=== PATIENT | female | born 1955 | race African-American/Black ===

== ENCOUNTER 2018-05-12 13:13 | Observation (INO) | payer MEDICARE, MEDICAID ==
[~2018-05-12] VITALS: Ht 172.7 cm; Wt 99.1 kg
[~2018-05-12 13:13] MED LIST: ABILIFY10 MG OR; ADVAIR DISK1 IN; ADVAIR HF1 IN; LORTAB 5 OR; NORVASC10 MG OR; ORAJEL MT; OXYCODONE30 MG OR; PAXIL CR25 MG OR; PENICILLN VK500 MG OR; PROVENTIL INH17 GM IN; PROZAC40 MG OR; SINGULAIR10 MG OR; VALIUM10 MG OR; VENTOLIN HFA IN; ZESTRIL20 MG OR
[2018-05-12 14:48] LABS: HEMATOCRIT 39.8 % (37.0-47.0); IMMATURE GRANULOCYTES 1.1 % (0.0-1.0); MEAN CELL VOLUME 77.3 fL CALC (80.0-100.0); MEAN CORPUSCULAR HGB 23.3 pG CALC (26.0-32.0); MEAN CORPUSCULAR HGB CONC 30.2 g/L CALC (32.0-36.0); NEUT# 9.82 thou/uL (2.00-7.15); RED BLOOD COUNT 5.15 mill/uL (4.20-5.60); RED CELL DISTRI WIDTH 20.1 % (11.5-15.5)
[2018-05-12 15:15] LABS: D-DIMER 0.71 mg/L (0.19-0.60); INTERNATIONAL NORMALIZED RATIO 0.9 RATIO (0.7-1.3)
[2018-05-12 15:17] LABS: ALBUMIN 4.4 g/dL (3.2-5.0); ALKALINE PHOSPHATASE 101 u/l (38-126); ANION GAP 12 (6-22 (CALC)); BILIRUBIN, TOTAL 0.4 mg/dL (0.0-1.4); BUN 14 mg/dL (8-23); BUN/CREATININE RATIO 23 (12-20 (CALC)); CARBON DIOXIDE 27 mmol/l (22-30); CHLORIDE 106 mmol/l (95-108); CREATININE 0.6 mg/dL (0.5-1.0); GFR > 60 ML/MIN (>=60 (CALC)); GFR FOR AFR.AMER. > 60 ML/MIN (>=60 (CALC)); SGOT/AST 19 u/l (9-36); SGPT/ALT 38 u/l (11-66); SODIUM 140 mmol/l (137-146); TOTAL PROTEIN 7.9 g/dL (6.3-8.2)
[2018-05-12] MEDS ORDERED: METOPROL TAR25 MG PO (15:54)
[2018-05-12] MEDS ORDERED: KLONOPIN1 MG PO (15:55)
[2018-05-12 16:56] LABS: CHOLESTEROL HDL RATIO 3.9 (<4.4 (CALC))
[2018-05-12 17:04] VITALS: BP 164/91
[2018-05-12 19:05] VITALS: BP 131/77
[2018-05-12 23:46] VITALS: BP 130/85
[2018-05-13] VITALS (7 sets, daily range): BP systolic 111–200; BP diastolic 73–106
[2018-05-13 08:02] LABS: HEMATOCRIT 37.7 % (37.0-47.0); HEMOGLOBIN 11.5 g/dl (12.0-16.0); IMMATURE GRANULOCYTES 1.4 % (0.0-1.0); MEAN CELL VOLUME 77.1 fL CALC (80.0-100.0); MEAN CORPUSCULAR HGB 23.5 pG CALC (26.0-32.0); MEAN CORPUSCULAR HGB CONC 30.5 g/L CALC (32.0-36.0); NEUT# 16.04 thou/uL (2.00-7.15); RED BLOOD COUNT 4.89 mill/uL (4.20-5.60); RED CELL DISTRI WIDTH 19.9 % (11.5-15.5)
[2018-05-13 08:25] LABS: ANION GAP 10 (6-22 (CALC)); BUN 17 mg/dL (8-23); BUN/CREATININE RATIO 29 (12-20 (CALC)); CARBON DIOXIDE 28 mmol/l (22-30); CHLORIDE 103 mmol/l (95-108); CREATININE 0.6 mg/dL (0.5-1.0); GFR > 60 ML/MIN (>=60 (CALC)); GFR FOR AFR.AMER. > 60 ML/MIN (>=60 (CALC)); MAGNESIUM 2.3 mg/dL (1.6-2.3); POTASSIUM 4.3 mmol/l (3.5-5.1); SODIUM 137 mmol/l (137-146)
[2018-05-13] MEDS ORDERED: DOXYCYCL HYC100 MG PO (12:56)
[2018-05-13] MEDS ORDERED: PREDNISONE10 MG PO (12:56)
[2018-05-14 04:20] VITALS: BP 153/92
[2018-05-14 05:41] LABS: HEMATOCRIT 37.8 % (37.0-47.0); HEMOGLOBIN 11.5 g/dl (12.0-16.0); IMMATURE GRANULOCYTES 2.5 % (0.0-1.0); MEAN CELL VOLUME 78.3 fL CALC (80.0-100.0); MEAN CORPUSCULAR HGB 23.8 pG CALC (26.0-32.0); MEAN CORPUSCULAR HGB CONC 30.4 g/L CALC (32.0-36.0); NEUT# 20.46 thou/uL (2.00-7.15); RED BLOOD COUNT 4.83 mill/uL (4.20-5.60); RED CELL DISTRI WIDTH 19.9 % (11.5-15.5)
[2018-05-14 06:02] LABS: ANION GAP 8 (6-22 (CALC)); BUN 25 mg/dL (8-23); BUN/CREATININE RATIO 33 (12-20 (CALC)); CARBON DIOXIDE 30 mmol/l (22-30); CHLORIDE 103 mmol/l (95-108); CREATININE 0.8 mg/dL (0.5-1.0); GFR > 60 ML/MIN (>=60 (CALC)); GFR FOR AFR.AMER. > 60 ML/MIN (>=60 (CALC)); POTASSIUM 4.7 mmol/l (3.5-5.1); SODIUM 136 mmol/l (137-146)
[2018-05-14 07:53] VITALS: BP 148/73
[2018-05-14 11:11] VITALS: BP 146/75
[2018-05-14] MEDS ORDERED: OXYCODONE15 MG PO (12:55)
[2018-05-14] MEDS ORDERED: MORPHINE SUL30 M3 PO (12:56)
[2018-05-14] MEDS ORDERED: CLONAZEPAM0.5 M1 PO (12:57)
[2018-05-14 15:40] VITALS: BP 147/78
[2018-05-15] MEDS ORDERED: PLAVIX75 MG PO (18:33)
[2018-05-15] MEDS ORDERED: FLUOXETINE10 M2 PO (18:34)
== END 2018-05-14 17:46 | disposition home or self-care (01) ==
LOC: ED 13:13 → ED-I 15:41 → ED 15:54 → MS2 15:55
PROVIDERS: Emergency Medicine; Nurse Practitioner; Nurse Practitioner Family; ADMIT Internal Medicine; ATTEND Internal Medicine
DX: J44.1 Chronic obstructive pulmonary disease with (acute) exacerbation (principal); I10 Essential (primary) hypertension; I25.10 Atherosclerotic heart disease of native coronary artery without angina pectoris; F17.210 Nicotine dependence, cigarettes, uncomplicated; F32.9 Major depressive disorder, single episode, unspecified; G89.4 Chronic pain syndrome; Z95.5 Presence of coronary angioplasty implant and graft; R07.89 Other chest pain; R06.02 Shortness of breath
CPT/HCPCS: J3475

== ENCOUNTER 2018-05-15 13:46 | Inpatient (IN) | payer MEDICARE, MEDICAID ==
[~2018-05-15] VITALS: Ht 172.7 cm; Wt 103.6 kg
[~2018-05-15 13:46] MED LIST changes: +CLONAZEPAM0.5 M1 PO; +DOXYCYCL HYC100 MG PO; +KLONOPIN1 MG PO; +METOPROL TAR25 MG PO; +MORPHINE SUL30 M3 PO; +OXYCODONE15 MG PO; +PREDNISONE10 MG PO
--- NOTE | 2018-05-15 13:48 | NUR ---
TO ROOM 9 VIA W/C. ALERT. ANSWERS QUESTIONS IN 1-2 WORDS. COOPERATIVE. BRACELETS IN PLACE FROM PREVIOUS ADMISSION
--- NOTE | 2018-05-15 14:17 | NUR ---
PORT ACCESS IN UPPER RIGHT CHEST BY STERILE PROCEDURE. BLOOD DRAW + 1 SET OF CULTURES & LA FOR PORT SITE.
[2018-05-15 14:31] LABS: HEMATOCRIT 38.9 % (37.0-47.0); HEMOGLOBIN 11.6 g/dl (12.0-16.0); IMMATURE GRANULOCYTES 2.7 % (0.0-1.0); MEAN CELL VOLUME 78.3 fL CALC (80.0-100.0); MEAN CORPUSCULAR HGB 23.3 pG CALC (26.0-32.0); MEAN CORPUSCULAR HGB CONC 29.8 g/L CALC (32.0-36.0); NEUT# 17.46 thou/uL (2.00-7.15); RED BLOOD COUNT 4.97 mill/uL (4.20-5.60); RED CELL DISTRI WIDTH 19.9 % (11.5-15.5)
--- NOTE | 2018-05-15 14:35 | NUR ---
PATIENT RESTING ON STRETCHER, WHEEZING NOTED TO BILATERAL LUNGS. REPORTS MIDSTERNAL CHEST PAIN NON RADIATING, RATES 8/10. MD INFORMED.
[2018-05-15 14:50] LABS: ANION GAP 11 (6-22 (CALC)); BUN 23 mg/dL (8-23); BUN/CREATININE RATIO 29 (12-20 (CALC)); CARBON DIOXIDE 31 mmol/l (22-30); CHLORIDE 102 mmol/l (95-108); CREATININE 0.8 mg/dL (0.5-1.0); GFR > 60 ML/MIN (>=60 (CALC)); GFR FOR AFR.AMER. > 60 ML/MIN (>=60 (CALC)); PROTHROMBIN TIME 10.7 SECONDS (9.0-12.5); SODIUM 140 mmol/l (137-146)
[2018-05-15 14:51] LABS: POTASSIUM 3.5 mmol/l (3.5-5.1)
--- NOTE | 2018-05-15 15:08 | NUR ---
PATIENT MEDICATED WITH 0.4 MH SL NITRO. PATIENT REPORTS NO RELIEF FROM CHEST PAIN. REPORTS TAKING X2 SL NITRO AT HOME. INFORMED.
--- NOTE | 2018-05-15 15:40 | NUR ---
PATIENT PRODUCES ID CARD FOR SMART PORT (SMART PORT POWER-INJECTABLE PORTS) BY [employer]. PORT PLACED TO RIGHT SUBCLAVIAN BY AT [facility]. INFORMATION ON CARD.
--- NOTE | 2018-05-15 15:45 | NUR ---
PATIENT MARKER MAKER LIGHT REQUESTING SOMETHING FOR CHEST PAIN 07/08. MF INFORMED.
--- NOTE | 2018-05-15 16:15 | NUR ---
PATIENT RESTING ON STRETCHER NO SIGNS OF DISTRESS NOTED. PATIENT MEDICATED WITH 4 MG OF MORPHINE IVP AND 4 MG OF IVP ZOFRAN. TOLERATED WELL. NITRO DRIP STARTED AT THIS TIME FOR CONTINUED CHEST PAIN. PATIENT INFORMED OF NITRO EFFECTS AND SIDE EFFECTS, VERBAL UNDERSTANDING FROM PATIENT. WILL CONTINUE TO MONITOR. CT SCAN ON HOLD AT THIS TIME TO MONITOR CHANGES IN B/P.
--- NOTE | 2018-05-15 16:34 | NUR ---
NITRO DRIP INCREASED TO 10MCG/MIN FOR CHEST PAIN 06/07.
--- NOTE | 2018-05-15 16:55 | NUR ---
PATIENT TRANSPORT TO CT SCAN ON PAIN MANAGEMENT NURSE PRACTITIONER. NURSE ACCOMPANIED PATIENT TO RADIOLOGY DEPARTMENT.
--- NOTE | 2018-05-15 17:20 | NUR ---
PATIENT REPORTS CHEST PAIN 4/10 AT THIS TIME, NITRO CONTINUES AT 10MCG/MIN. UP TO BSC WITH STANDBY ASSIST, NO SOB NOTED. 400 ML OF CLEAR YELLOW URINE OUT. CALL LIGHT PLACED WITHIN REACH. WILL CONTINUE TO MONITOR.
[2018-05-15 17:36] LABS: URINE BILIRUBIN - DIPSTICK NEGATIVE (NEGATIVE); URINE BLOOD DIPSTICK TRACE-INTACT (NEGATIVE); URINE COLOR YELLOW; URINE GLUCOSE - DIPSTICK NEGATIVE (NEGATIVE); URINE KETONE NEGATIVE (NEGATIVE); URINE LEUK ESTERASE NEGATIVE (NEGATIVE); URINE NITRITE - DIPSTICK NEGATIVE (Negative); URINE PH 5.5 (4.5-8.0); URINE PROTEIN - DIPSTICK NEGATIVE (NEG-TRACE); URINE SPECIFIC GRAVITY 1.015; URINE UROBILINOGEN - DIPSTICK 0.2 E.U./dL (0.2)
--- NOTE | 2018-05-15 18:20 | NUR ---
AT BEDSIDE TO DISCUSS RESULTS.
--- NOTE | 2018-05-15 18:30 | NUR ---
PATIENT REPORTS GOING TO PAIN MANAGEMENT FOR CHRONIC BACK PAIN.
[2018-05-15] MEDS ORDERED: PLAVIX75 MG PO (18:33)
[2018-05-15] MEDS ORDERED: FLUOXETINE10 M2 PO (18:34)
--- NOTE | 2018-05-15 18:36 | NUR ---
NITRO DRIP INCREASED TO 15 MCG/MIN FOR CHEST PAIN 5/10. PATIENT ASSISTED UP TO BSC. CALL LIGHT WITHIN REACH.
--- NOTE | 2018-05-15 18:48 | NUR ---
NITRO DRIP INCREASED TO 20MCG/MIN FOR CHEST PAIN 5/10. PATIENT TOLERATING WELL. SANDWICH AND PO FLUID PROVIDED PER PATIENT REQUEST. CALL LIGHT WITHIN REACH. WILL CONTINUE TO MONITOR.
[2018-05-15 18:54] LABS: URINE CLARITY CLEAR
--- NOTE | 2018-05-15 18:55 | NUR ---
BEDSIDE REPORT GIVEN TO [facility]. PATIENT CONTINUES ON NITRO DRIP. CARE RELINQUISHED.
--- NOTE | 2018-05-15 19:00 | NUR ---
RECEIVED REPORT FROM EWA IDA. IN ROOM INTRODUCED SELF TO PT. PT. C/O MIDSTERNAL CP A 5 ON A SCALE OF 1-10. NITROGLYCERIN GTT INCREASED TO 25 MCG/MIN BP 181/74.
--- NOTE | 2018-05-15 19:05 | NUR ---
REPORT CALLED TO [facility]. REQUESTING TO HOLD TRANSPORT TO ICU AT THIS TIME. PATIENT TO CONTINUE CARE IN ED WITH [facility].
--- NOTE | 2018-05-15 20:05 | NUR ---
PT. C/O CP A 7 ON A SCALE OF 1-10. NITROGLYCERIN OINT INCREASED TO 30 MCG/MIN BP 136/71
--- NOTE | 2018-05-15 20:25 | NUR ---
PT. TO ICU VIA STRETCHER. CONT. TO C/O CP A 7 ON A SCALE OF 1-10.
--- NOTE | 2018-05-15 20:40 | NUR ---
PT. ARRIVES TO UNIT FROM ED VIA STRETCHER ON 3O MCG NITROGLYCERIN DRIP AT THIS TIME. PT. AMBULATORY FROM ER STRETCHER TO STANDING SCALE. 228.5 LBS. AMBULATORY WITH STEADY GAIT TO ICU BED 3 WITHOUT ASSIST. PLACED ON MONITOR. AND NITRO RESTARTED AT 30 MCG AFTER BEING BREIFLY REMOVED FOR TRANSFER TO BED. PT. C/O 7/10 PAIN TO CHEST. APPEARS IN NO SIGNIFICANT DISTRESS. PT. IS MOANING WITH EVERY MOVEMENT. EXPLAINED CALL LIGHT AND [place] SYSTEM. PLACED ON MONITOR. RESPS EVEN AND UNLABORED. SKIN WARM AND DRY. AFEBRILE. PT. STATES WAS DISCHARGED YESTERDAY FOR SAME. STATES SHE HAS BEEN OUT OF HER NARCOTIC PAIN MEDS X 3 DAYS AND THATS WHEN HER CP STARTED 3 DAYS AGO. PT. HAS BEEN ON IV STERIODS WHILE HOSPITALIZED AND TAPER DOSE AT HOME. DENIES FEVER, COUGH, OR URINARY SX. EXPLAINED TO PATIENT HER ELEVATED WBC WAS LIKELY DUE TO HER STEROID REGIMEN. HR AND BP STABLE ON ARRIVAL. ALIZA ISLAS APPLIED AT THIS TIME. WILL CONTINUE TO MONITOR.
[2018-05-15 20:48] VITALS: BP 152/85
[2018-05-15 21:00] VITALS: BP 153/80
[2018-05-15 21:15] VITALS: BP 154/79
[2018-05-15 21:30] VITALS: BP 156/81
--- NOTE | 2018-05-15 21:30 | NUR ---
NITRO DRIP DECREASED TO 10 MCG AT THIS TIME. PT. PAIN REMAINS UNCHANGED WITH THE NITRO DRIP. MEDICATED PER PHSYCIAN NEW ORDERS. WILL CONTINUE TO MONITOR.
[2018-05-15 22:00] VITALS: BP 148/76
--- NOTE | 2018-05-15 22:00 | NUR ---
PT. RESTING WITH EYES CLOSED AND SNORING RESPIRATIONS. PART OF A NU CRACKER IN HER MOUTH AND THE OTHER HALF IN HER HAND. VERBAL AND TACTILE STIMULATION NEEDED TO AROUSE PATIENT. WHEN AROUSED AFTER MULTIPLE ATTEMPTS, PT. C/O 05/08 PAIN TO HER CHEST. IMMEDIATELY GOES BACK TO SLEEP.,
--- NOTE | 2018-05-15 22:45 | NUR ---
PT. PROVIDED WITH ADDITIONAL NU CRACKERS AND DIET SODA AT THIS TIME.
--- NOTE | 2018-05-15 22:55 | NUR ---
PT. ASSISTED TO BSC. STATES HER PAIN IS NOW A 5/10 AND IMPROVING. NTG DRIP REMAINS AT 10 MCG DOWN FROM 30 MCG SINCE ARRIVAL.
[2018-05-15 23:00] VITALS: BP 140/77
[2018-05-16] VITALS (14 sets, daily range): BP systolic 139–183; BP diastolic 75–98
--- NOTE | 2018-05-16 00:05 | NUR ---
PT. RESTING WITH EYES CLOSED AND SNORING RESPIRATIONS. VSS. SKIN REMAINS WARM AND DRY. PT. REMAINS AFEBRILE. SINUS RHYTHM IN THE 60'S. BP STABLE. WILL CONTINUE TO MONITOR.
--- NOTE | 2018-05-16 01:53 | NUR ---
PT. CONTINUES TO REST WITH SNORING RESPIRATIONS. CALL LIGHT REMAINS WITHIN REACH. VSS.
--- NOTE | 2018-05-16 03:17 | NUR ---
PT. ASSISTED TO BSC. CONTINUES TO RATE HER PAIN 5/10 AT THIS TIME, BUT APPEARS IN NO DISTRESS. VSS. REMAINS IN SINUS RHYTHM. HR/BP STABLE. CALL LIGHT BACK WITHIN REACH UPON RETURN TO BED.
--- NOTE | 2018-05-16 05:05 | NUR ---
PT. RESTING IN BED WITH EYES CLOSED. NO DISTRESS. RESPS REMAIN EVEN AND UNLABORED. VSS. WHEN AWAKENED, PT. CONTINUES TO COMPLAIN OF 5/10 PAIN TO CHEST THAT IS NON RADIATING. NO OTHER ACS SX REPORTED. CALL LIGHT REMAINS WITHIN REACH. WILL CONTINUE TO MONITOR.
--- NOTE | 2018-05-16 06:02 | NUR ---
NEB TREATMENT COMPLETED AT THIS TIME. PT. REMAINS STABLE. VSS. SINUS VANNESA AT 58 AT THIS TIME. BP ELEVATED AT 183/89. WILL CONTINUE TO ASSESS.
--- NOTE | 2018-05-16 07:20 | NUR ---
pt resting in bed with eyes closed/snoring noted; easily aroused to verbal stimuli; no distress noted; assessment completed at this time; pt alert and oriented; complaints of chest pain and back pain rating 5/10 immed. upon awakening; denies n/v; no diaphoresis noted; resp even and unlabored; lungs coarse with wheezing throughout; skin color wnl; ra; hr reg; strong pulses; no edema noted; sr on monitor; bilat knee high victorino hose intact; abd soft/ distended with bs hyperactive; no bm noted per insurance underwriter sales; pt admits to voiding without pain or burning; no urine to inspect at this time; bsc; right chest port accessed with ivf infusing at kvo; blood aspirate noted; iv flushed and patent; plan of care/ am meds explained; call light within reach; will continue to monitor
--- NOTE | 2018-05-16 08:00 | NUR ---
awake eating breakfast; no distress noted; pt voice no complaints; iv patent; sr on monitor; call light within reach; will continue to monitor
--- NOTE | 2018-05-16 09:09 | NUR ---
awake forest fire prevention manager light; pt admits "I'm still hungry"; suha price provided as per request
--- NOTE | 2018-05-16 10:01 | NUR ---
pt awake in bed; offers no complaints; no distress noted; resp even and unlabored; sr 70s on monitor; iv patent; pt denies needs at this time; call light within reach; will continue to monitor
--- NOTE | 2018-05-16 10:15 | NUR ---
Dr Maria at bedside to assess pt and discuss plan of care
--- NOTE | 2018-05-16 11:59 | NUR ---
awake in bed; offers no complaints/voices no complaints; iv patent; no redness or edema noted at site; sr on monitor; ra; eating lunch; no s/s of pain, facial grimaces noted; call light within reach; will continue to monitor
--- NOTE | 2018-05-16 14:12 | NUR ---
awake conversing on cell phone; no distress noted; pt offers no complaints; sr on monitor; call light within reach; will continue to monitor
--- NOTE | 2018-05-16 16:00 | NUR ---
resting in bed with eyes closed; easily aroused; offers no complaints; iv intact and patent; sr on monitor; ra; call light within reach; will continue to monitor
--- NOTE | 2018-05-16 16:09 | NUR ---
YANCY Carrington notified per this customs entry writer of elevated blood pressure; orders to be placed
--- NOTE | 2018-05-16 18:11 | NUR ---
awake in bed; no distress noted; pt offers no complaints; iv intact and patent; sr on monitor; ra; pt deny needs; bed in lowest position; call light within reach
--- NOTE | 2018-05-16 18:50 | NUR ---
REPORT FROM Destin MAX RN. ASSUMED PT. CARE.
--- NOTE | 2018-05-16 19:35 | NUR ---
PT. RESTING IN BED IN NO DISTRESS. C/O 05/08 PAIN TO CHEST. RESPS REMAIN EVEN AND UNLABORED. DENIES PAIN ON PALPATION. BARRIGA. CAN. SKIN WARM AND DRY. HR AND BP STABLE. NO EDEMA NOTED. EXP WHEEZES NOTED THROUGHOUT WITH COARSENESS NOTED. CALL LIGHT REMAINS WITHIN REACH. WILL CONTINUE TO MONITOR.
--- NOTE | 2018-05-16 21:21 | NUR ---
PT. COMPLAINTS OF 5/10 PAIN AT THIS TIME, BUT FALLS ASLEEP WHILE ATTEMPTING TO MEDICATE.
--- NOTE | 2018-05-16 22:27 | NUR ---
NEB TREATMENT IN PROGRESS AT THIS TIME. NO DISTRESS NOTED. WILL CONTINUE TO MONITOR.
[2018-05-17] VITALS (12 sets, daily range): BP systolic 125–189; BP diastolic 70–95
--- NOTE | 2018-05-17 00:15 | NUR ---
PT. ROUSABLE TO LIGHT/MODERATE VERBAL STIMULI. LEVAQUIN INFUSING AT THIS TIME WITHOUT REACTIONS NOTED. PT. REMAINS AFEBRILE. MAE. NORTH. VOICES NO COMPLAINTS, CONCERNS OR NEEDS AT THIS TIME. VSS. WILL CONTINUE TO MONITOR.
--- NOTE | 2018-05-17 01:43 | NUR ---
IV LEVAQUIN INFUSED AT THIS TIME. NO REACTIONS NOTED. PORT FLUSHED PER PROTOCOL. PT. RESTING WITH EYES CLOSED. EASILY AROUSABLE AND GOES BACK TO SLEEP. VSS.
--- NOTE | 2018-05-17 03:15 | NUR ---
PT. AWAKE, ALERT, ORIENTED X 3. REQUESTING PAIN MEDICATION FOR PAIN OF 5-6/10 REPORTED PAIN LEVEL. PT. APPEARS IN NO DISTRESS. VSS. CALL LIGHT REMAINS WITHIN REACH.
--- NOTE | 2018-05-17 03:24 | NUR ---
PT. PROVIDED WITH JUICE AND NU CRACKERS PER HER REQUEST.
--- NOTE | 2018-05-17 04:05 | NUR ---
PT. RESTING IN BED WITH EYES CLOSED. NO DISTRESS. VOICES NO COMPLAINTS OR NEEDS.
[2018-05-17 05:22] LABS: HEMATOCRIT 35.9 % (37.0-47.0); HEMOGLOBIN 10.7 g/dl (12.0-16.0); MEAN CELL VOLUME 79.1 fL CALC (80.0-100.0); MEAN CORPUSCULAR HGB 23.6 pG CALC (26.0-32.0); MEAN CORPUSCULAR HGB CONC 29.8 g/L CALC (32.0-36.0); RED BLOOD COUNT 4.54 mill/uL (4.20-5.60); RED CELL DISTRI WIDTH 19.9 % (11.5-15.5)
--- NOTE | 2018-05-17 05:32 | NUR ---
NEB TREATMENT COMPLETE. PT. DID FALL ASLEEP WHILE USING NEB TREATMENT. REMAINS IN NO DISTRESS. RESPS REMAIN EVEN AND UNLABORED. REMAINS AFEBRILE. BP SLIGHLY ELEVATED. WILL CONTINUE TO ASSESS.
[2018-05-17 05:36] LABS: BUN 20 mg/dL (8-23); BUN/CREATININE RATIO 28 (12-20 (CALC)); CARBON DIOXIDE 32 mmol/l (22-30); CHLORIDE 101 mmol/l (95-108); CREATININE 0.7 mg/dL (0.5-1.0); GFR > 60 ML/MIN (>=60 (CALC)); GFR FOR AFR.AMER. > 60 ML/MIN (>=60 (CALC)); SODIUM 136 mmol/l (137-146)
[2018-05-17 05:43] LABS: ANION GAP 7 (6-22 (CALC)); POTASSIUM 4.4 mmol/l (3.5-5.1)
--- NOTE | 2018-05-17 06:31 | NUR ---
PT. SLEPT THROUGH MED ADMINISTRATION OF SOLUMEDROL AND PORT FLUSH. DID BRIEFLY AROUSE, BUT THEN GOES RIGHT BACK TO SLEEP. VOICES NO COMPLAINTS OR NEEDS. CALL LIGHT REMAINS WITHIN REACH.
--- NOTE | 2018-05-17 07:45 | NUR ---
PT RESTING IN BED, ALERT AND ABLE TO MAKE NEEDS KNOWN. SR ON TELEMETRY, HR- 64. LS WITH EXPIRATORY WHEEZING IN LEFT GALVAN, LS RIGHT GALVAN CLEAR THROUGHOUT. BS X 4 ACTIVE, PT ASSITED TO BSC, VOID 300OP OF CLEAR YELLOW URINE. PT WITH ALIZA'S BLE. PT DENIES SOB,PT STATED PAIN AT STERNUM "6" ON 1-10 SCALE GENERALIZED. PT HAS ACCESSED PORT TO RIGHT CHEST, CDI. CALL LIGHT IN REACH, WILL MONITOR.
--- NOTE | 2018-05-17 10:00 | NUR ---
PT RESTING IN BED TALKING ON PHONE. PT NOTED WITH MEDICATIONS AT BEDSIDE, THIS ROBOTIC MAINTENANCE TECHNICIAN COLLECTED AND PLACED IN MEDROOM. CALL LIGHT IN REACH, WILL MONITOR
--- NOTE | 2018-05-17 10:30 | NUR ---
DR. HEADLEY AT BEDSIDE FOR ASSESSMENT AND TO DISCUSS PLAN OF CARE. NEW ORDERS RECIEVED. PT OFFERS NO COMPLAINTS AT THIS TIME.
--- NOTE | 2018-05-17 11:30 | NUR ---
LUNCH TRAY SET UP. CALL LIGHT IN REACH
--- NOTE | 2018-05-17 12:00 | NUR ---
PT RESTING IN BED, OFFERS NO COMPLAINTS AT THIS TIME. PAUL JARAMILLO GIVEN [place] PT REQUEST, CALL LIGHT IN REACH, WILL MONITOR
--- NOTE | 2018-05-17 14:00 | NUR ---
RESP AT PT BEDSIDE FOR TREATMENT. PT RESTING IN BED WITH EYES CLOSED, PT OFFERS NO COMPLAINTS AT THIS TIME, AFEBRILE. SR ON TELEMETRY. CALL LIGHT IN REACH, WILL MONITOR.
--- NOTE | 2018-05-17 15:30 | NUR ---
FAMILY LEFT UNIT
--- NOTE | 2018-05-17 15:50 | NUR ---
PT MEDICATED FOR PAIN ORDERED PRN.6 ON 1-10 SCALE GENERALIZED "ALL OVER" CALL LIGHT IN REACH. WILL MONITOR
--- NOTE | 2018-05-17 16:00 | NUR ---
PT RESTING IN BED WITH EYES CLOSED, OFFERS NO COMPLAINTS AT THIS TIME. REMAINS SR ON TELEMETRY. CALL LIGHT IN REACH ,WILL MONITOR
--- NOTE | 2018-05-17 16:30 | NUR ---
DR. HEADLEY AT THE BEDSIDE FOR ASSESSMENT AND TO DISCUSS PLAN OF CARE
--- NOTE | 2018-05-17 17:17 | NUR ---
RESPIRATORY AT BS
--- NOTE | 2018-05-17 18:00 | NUR ---
PT RESTING IN BED, OFFERS NO COMPLAINTS AT THIS TIME. CALL LIGHT IN REACH, WILL MONITOR.
--- NOTE | 2018-05-17 19:03 | NUR ---
REPORT FROM Edil FRIEDMAN RN. ASSUMED PT. CARE.
--- NOTE | 2018-05-17 19:47 | NUR ---
PT. FOUND SLEEPING IN BED WITH EYES CLOSED AND SNORING RESPIRATIONS. NO DISTRESS. BP/HR STABLE. NO DISTRESS. RESPS EVEN AND UNLABORED. PT. VOICES NO COMPLAINTS OR NEEDS. CALL LIGHT WITHIN REACH.
--- NOTE | 2018-05-17 21:54 | NUR ---
PT. UP TO BEDSIDE COMMODE AT THIS TIME IN NO DISTRESS. AMBULATORY WITH STEADY GAIT AND BACK TO BED WITHOUT ASSIST. REMAINS STABLE.
[2018-05-18] VITALS (7 sets, daily range): BP systolic 147–169; BP diastolic 76–100
--- NOTE | 2018-05-18 00:18 | NUR ---
LEVAQUIN INFUSING AT THIS TIME WITHOUT SX OF INFILTRATION OR REACTION. PT. MEDICATED FOR HER REPORTED PAIN LEVEL OF 5/10. APPEARS IN NO DISTRESS. WILL CONTINUE TO MONITOR.
--- NOTE | 2018-05-18 01:31 | NUR ---
PT. RESTING ON RT. SIDE IN NO DISTRESS. RESPS EVEN AND UNLABORED. IV LEVAQUIN DOSE INFUSED AT THIS TIME. PORT FLUSHED WITH SALINE AND HEAPRIN FLUSH. LOCKED.
--- NOTE | 2018-05-18 03:15 | NUR ---
PT. RESTING IN BED WITH EYES CLOSED. RESPS EVEN, SHALLOW, UNLABORED. SPO2 STABLE AT 98% ON RA. BP STABLE. CALL LIGHT REMAINS WITHIN REACH. DENIES COMPLAINTS OR NEEDS.
--- NOTE | 2018-05-18 05:03 | NUR ---
LAB SPECIMENS DRAWN AT THIS TIME. PT. EASILY AROUSABLE. REMAINS AWAKE, ALERT, ORIENTED X 3. SKIN WARM AND DRY. AFEBRILE. DENIES COMPLAINTS OR NEEDS. NO DISTRESS. WILL CONTINUE TO MONITOR.
[2018-05-18 05:27] LABS: HEMATOCRIT 36.9 % (37.0-47.0); IMMATURE GRANULOCYTES 4.5 % (0.0-1.0); MEAN CELL VOLUME 78.7 fL CALC (80.0-100.0); MEAN CORPUSCULAR HGB 23.5 pG CALC (26.0-32.0); MEAN CORPUSCULAR HGB CONC 29.8 g/L CALC (32.0-36.0); NEUT# 23.99 thou/uL (2.00-7.15); RED BLOOD COUNT 4.69 mill/uL (4.20-5.60); RED CELL DISTRI WIDTH 19.7 % (11.5-15.5)
[2018-05-18 05:41] LABS: ANION GAP 7 (6-22 (CALC)); BUN 22 mg/dL (8-23); BUN/CREATININE RATIO 32 (12-20 (CALC)); CALCULATED LDLCHOLESTEROL 140 mg/dL (62-129 (CALC)); CARBON DIOXIDE 34 mmol/l (22-30); CHLORIDE 100 mmol/l (95-108); CREATININE 0.7 mg/dL (0.5-1.0); GFR > 60 ML/MIN (>=60 (CALC)); GFR FOR AFR.AMER. > 60 ML/MIN (>=60 (CALC)); HDL CHOLESTEROL 84 mg/dL (>=40); POTASSIUM 4.5 mmol/l (3.5-5.1); SODIUM 137 mmol/l (137-146); TOTAL CHOLESTEROL 254 mg/dl (0-199); TOTAL TRIGLYCERIDES 150 mg/dl (30-149); VLDL CHOLESTROL 30 mg/dl (1-41 (CALC))
--- NOTE | 2018-05-18 07:30 | NUR ---
PT ALERT AND ORIENTED, RESTING IN BED, OFFERS NO NEW COMPLAINTS, AM ASSESSMENT COMPLETED, SEE INTERVENTIONS, SKIN WARM AND DRY NO BREAKDOWN NOTED, NO SHORTNESS OF BREATH NOTED, ABD SOFT AND BS ACTIVE, TELE READING SR RATE IN THE 80'S AFEBRILE AND BP STABLE, NO DISTRESS NOTED, SAFETY MEASURES INTRODUCED, IMPLANTED PORT INTACT AND LOCKED, WILL CONTINUE TO MONITOR.
[2018-05-18] MEDS ORDERED: MORPHINE SULFAT30 M1 PO ×2 (08:40→08:45)
--- NOTE | 2018-05-18 08:40 | NUR ---
IN TO SEE PT PLAN OF CARE DISCUSSED INCLDUING D/C TODAY.
[2018-05-18] MEDS ORDERED: METOPROL TAR25 MG PO (08:45)
[2018-05-18] MEDS ORDERED: OXYCODONE15 MG PO (08:45)
[2018-05-18] MEDS ORDERED: ABILIFY10 MG OR (08:45)
[2018-05-18] MEDS ORDERED: PLAVIX75 MG PO (08:45)
[2018-05-18] MEDS ORDERED: AMLODIPINE BESYL5 MG PO (08:45)
[2018-05-18] MEDS ORDERED: CLONAZEPAM0.5 M1 PO (08:45)
[2018-05-18] MEDS ORDERED: PROZAC20 M1 PO (08:45)
[2018-05-18] MEDS ORDERED: PREDNISONE10 MG PO (08:46)
[2018-05-18] MEDS ORDERED: LEVAQUIN750 MG PO (08:46)
--- NOTE | 2018-05-18 09:10 | NUR ---
KVNG FROM [facility] NOTIFIEF FOR PRESCRIPTION ASSIST FOR PT
--- NOTE | 2018-05-18 09:20 | NUR ---
TOOK AM MEDICATIONS W/O INCIDENT, CALL [facility] WITHIN REACH
--- NOTE | 2018-05-18 10:18 | NUR ---
KVNG TUBBS [facility] AT BEDSIDE
--- NOTE | 2018-05-18 11:35 | NUR ---
AWARE OF MEDICATION ISSUES, PT INSTRUCTED TO TAKE ADULT ASPIRIN UNTIL PLAVIX AVAILABLE (05/27/18) INSURANCE WON'T COVER TIL THEN AND PT STATES SHE CANNOT BUY IT. PT STATES SHE HAS A FOLLOW UP VISIT WITH HER PAIN MGMT DOCTOR IN ONE WEEK.
--- NOTE | 2018-05-18 11:48 | NUR ---
AFTERNOON MEAL SET UP ASSIST PROVIDED, CALL [facility] WITHIN REACH.
--- NOTE | 2018-05-18 12:35 | NUR ---
PORT IN R CHEST WALL DEACCESSED FOR PLANNED D/C FLUSHED PER RPROTCOL AT 0540 THIS AM. PT TOLERATED WELL, ALL MONITORING EQUIPMETN REMOVED AND PT DRESSING SELF, AWAITING HER RIDE TO CALL HER FOR D/C. CALL [facility] WITHIN REACH
--- NOTE | 2018-05-18 12:48 | NUR ---
Discharge instructions given. Patient verbalizes understanding of same. Discharged in stable condition via Wheelchair to Home with friend. All belongings sent with pt. ALL MEDICATIONS FROM HOME AND SCRIPTS FILLED BY MIKE SENT WITH PATIENT
== END 2018-05-18 12:48 | disposition home or self-care (01) | DRG 192 ==
LOC: ED 13:46 → ED-I 14:09 → ED 18:51 → ICU 18:52
PROVIDERS: Family Medicine; Internal Medicine; ADMIT Internal Medicine; ATTEND Internal Medicine
DX: J44.1 Chronic obstructive pulmonary disease with (acute) exacerbation (principal); I16.0 Hypertensive urgency; I10 Essential (primary) hypertension; I25.10 Atherosclerotic heart disease of native coronary artery without angina pectoris; E66.9 Obesity, unspecified; F32.9 Major depressive disorder, single episode, unspecified; F17.210 Nicotine dependence, cigarettes, uncomplicated; G89.4 Chronic pain syndrome; Z95.5 Presence of coronary angioplasty implant and graft; Z68.34 Body mass index [BMI] 34.0-34.9, adult; Z91.14 Patient's other noncompliance with medication regimen
CPT/HCPCS: Q9967

== ENCOUNTER 2018-06-06 22:21 | Observation (INO) | payer MEDICARE, MEDICAID ==
[~2018-06-06] VITALS: Ht 172.7 cm; Wt 102.7 kg
[~2018-06-06 22:21] MED LIST changes: +AMLODIPINE BESYL5 MG PO; +FLUOXETINE10 M2 PO; +LEVAQUIN750 MG PO; +MORPHINE SULFAT30 M1 PO; +PLAVIX75 MG PO; +PROZAC20 M1 PO
[2018-06-06] MEDS ORDERED: SIMVASTATIN20 MG PO (22:44)
[2018-06-06] MEDS ORDERED: ASPIRIN CHEWABL81 MG PO (22:44)
[2018-06-06 23:00] LABS: HEMOGLOBIN 9.5 g/dl (12.0-16.0); IMMATURE GRANULOCYTES 0.3 % (0.0-1.0); MEAN CELL VOLUME 80.2 fL CALC (80.0-100.0); MEAN CORPUSCULAR HGB 23.8 pG CALC (26.0-32.0); MEAN CORPUSCULAR HGB CONC 29.7 g/L CALC (32.0-36.0); NEUT# 5.97 thou/uL (2.00-7.15); RED BLOOD COUNT 3.99 mill/uL (4.20-5.60); RED CELL DISTRI WIDTH 19.8 % (11.5-15.5)
[2018-06-06 23:06] LABS: ALKALINE PHOSPHATASE 90 u/l (38-126); BILIRUBIN, TOTAL 0.2 mg/dL (0.0-1.4); BUN 13 mg/dL (8-23); BUN/CREATININE RATIO 19 (12-20 (CALC)); CARBON DIOXIDE 36 mmol/l (22-30); CHLORIDE 101 mmol/l (95-108); CREATININE 0.7 mg/dL (0.5-1.0); GFR > 60 ML/MIN (>=60 (CALC)); GFR FOR AFR.AMER. > 60 ML/MIN (>=60 (CALC)); SGOT/AST 23 u/l (9-36); SGPT/ALT 39 u/l (11-66); SODIUM 142 mmol/l (137-146); TOTAL PROTEIN 6.7 g/dL (6.3-8.2)
[2018-06-06 23:08] LABS: ALBUMIN 3.5 g/dL (3.2-5.0); ANION GAP 8 (6-22 (CALC)); POTASSIUM 2.6 mmol/l (3.5-5.1)
[2018-06-06 23:18] LABS: MYOGLOBIN 52 ng/mL (0 - 62)
[2018-06-07 00:15] VITALS: BP 140/81
[2018-06-07 00:29] LABS: URINE BILIRUBIN - DIPSTICK NEGATIVE (NEGATIVE); URINE BLOOD DIPSTICK MODERATE (NEGATIVE); URINE COLOR YELLOW; URINE GLUCOSE - DIPSTICK NEGATIVE (NEGATIVE); URINE KETONE TRACE mg/dL (NEGATIVE); URINE LEUK ESTERASE NEGATIVE (NEGATIVE); URINE NITRITE - DIPSTICK NEGATIVE (Negative); URINE PROTEIN - DIPSTICK TRACE mg/dL (NEG-TRACE); URINE SPECIFIC GRAVITY 1.015
[2018-06-07 00:33] LABS: BARBITURATES NEGATIVE (NEGATIVE); COCAINE NEGATIVE (NEGATIVE); METHADONE NEGATIVE (NEGATIVE); OXCYCODONE POSITIVE (NEGATIVE); TETRAHYDROCANNABIONOL NEGATIVE (NEGATIVE); TRICYLIC ANTIDEPRESSANTS NEGATIVE (NEGATIVE); URINE CLARITY SL CLOUDY
[2018-06-07 00:34] LABS: URINE BACTERIA FEW hpf; URINE MUCUS MANY hpf (NONE-FEW); URINE SQUAMOUS EPITHELIAL CELL MODERATE EPI/hpf (0-FEW)
[2018-06-07 04:27] VITALS: BP 128/82
[2018-06-07 06:57] LABS: HEMATOCRIT 34.1 % (37.0-47.0); HEMOGLOBIN 10.1 g/dl (12.0-16.0); IMMATURE GRANULOCYTES 0.2 % (0.0-1.0); MEAN CELL VOLUME 80.2 fL CALC (80.0-100.0); MEAN CORPUSCULAR HGB 23.8 pG CALC (26.0-32.0); MEAN CORPUSCULAR HGB CONC 29.6 g/L CALC (32.0-36.0); NEUT# 8.04 thou/uL (2.00-7.15); RED BLOOD COUNT 4.25 mill/uL (4.20-5.60); RED CELL DISTRI WIDTH 19.9 % (11.5-15.5)
[2018-06-07 07:03] LABS: ALBUMIN 3.5 g/dL (3.2-5.0); ALKALINE PHOSPHATASE 93 u/l (38-126); BILIRUBIN, TOTAL 0.2 mg/dL (0.0-1.4); BUN 15 mg/dL (8-23); BUN/CREATININE RATIO 22 (12-20 (CALC)); CARBON DIOXIDE 30 mmol/l (22-30); CHLORIDE 105 mmol/l (95-108); CREATININE 0.7 mg/dL (0.5-1.0); GFR > 60 ML/MIN (>=60 (CALC)); GFR FOR AFR.AMER. > 60 ML/MIN (>=60 (CALC)); SGOT/AST 20 u/l (9-36); SGPT/ALT 38 u/l (11-66); SODIUM 142 mmol/l (137-146); TOTAL PROTEIN 6.4 g/dL (6.3-8.2)
[2018-06-07 07:04] LABS: ANION GAP 11 (6-22 (CALC)); POTASSIUM 3.5 mmol/l (3.5-5.1)
[2018-06-07 07:45] VITALS: BP 121/66
[2018-06-07] MEDS ORDERED: CLONAZEPAM0.5 M1 PO (10:57)
[2018-06-07] MEDS ORDERED: PREDNISONE10 MG PO (10:57)
[2018-06-07 11:28] VITALS: BP 125/77
[2018-06-07 15:24] VITALS: BP 132/82
[2018-06-07 19:09] VITALS: BP 147/88
[2018-06-08 00:03] VITALS: BP 136/75
[2018-06-08 04:18] VITALS: BP 138/82
[2018-06-08 06:18] LABS: HEMATOCRIT 32.9 % (37.0-47.0); HEMOGLOBIN 9.8 g/dl (12.0-16.0); MEAN CELL VOLUME 78.9 fL CALC (80.0-100.0); MEAN CORPUSCULAR HGB 23.5 pG CALC (26.0-32.0); MEAN CORPUSCULAR HGB CONC 29.8 g/L CALC (32.0-36.0); NEUT# 18.18 thou/uL (2.00-7.15); RED BLOOD COUNT 4.17 mill/uL (4.20-5.60); RED CELL DISTRI WIDTH 19.7 % (11.5-15.5)
[2018-06-08 06:38] LABS: ANION GAP 8 (6-22 (CALC)); BUN 15 mg/dL (8-23); BUN/CREATININE RATIO 25 (12-20 (CALC)); CARBON DIOXIDE 31 mmol/l (22-30); CHLORIDE 106 mmol/l (95-108); CREATININE 0.6 mg/dL (0.5-1.0); GFR > 60 ML/MIN (>=60 (CALC)); GFR FOR AFR.AMER. > 60 ML/MIN (>=60 (CALC)); MAGNESIUM 2.1 mg/dL (1.6-2.3); POTASSIUM 3.8 mmol/l (3.5-5.1); SODIUM 141 mmol/l (137-146)
[2018-06-08 07:29] VITALS: BP 122/69
[2018-06-08 11:20] VITALS: BP 140/78
== END 2018-06-08 13:27 | disposition home or self-care (01) ==
LOC: ED 22:21 → ED-I 23:35 → ED 23:48 → MS2 23:49
PROVIDERS: Emergency Medicine; Nurse Practitioner Family; ADMIT Internal Medicine; ATTEND Internal Medicine
DX: R07.89 Other chest pain (principal); J44.1 Chronic obstructive pulmonary disease with (acute) exacerbation; I25.10 Atherosclerotic heart disease of native coronary artery without angina pectoris; F17.210 Nicotine dependence, cigarettes, uncomplicated; I10 Essential (primary) hypertension; E87.6 Hypokalemia; F32.9 Major depressive disorder, single episode, unspecified; G89.4 Chronic pain syndrome; F41.9 Anxiety disorder, unspecified; Z95.5 Presence of coronary angioplasty implant and graft; Z68.34 Body mass index [BMI] 34.0-34.9, adult; Z91.14 Patient's other noncompliance with medication regimen

== ENCOUNTER 2018-07-01 16:23 | Emergency (ER) | payer MEDICARE, MEDICAID ==
[~2018-07-01] VITALS: Ht 172.7 cm; Wt 100.0 kg
[~2018-07-01 16:23] MED LIST changes: +ASPIRIN CHEWABL81 MG PO; +SIMVASTATIN20 MG PO
[2018-07-01] MEDS ORDERED: PROAIR HFA108 MCG/AC IN (16:55)
[2018-07-01] MEDS ORDERED: MEDDOSEPAK PO (16:55)
[2018-07-01 17:30] VITALS: BP 121/71
== END 2018-07-01 17:30 | disposition home or self-care (01) ==
LOC: ED 16:23
DX: J44.9 Chronic obstructive pulmonary disease, unspecified (principal); R06.02 Shortness of breath; F17.200 Nicotine dependence, unspecified, uncomplicated; I10 Essential (primary) hypertension

== ENCOUNTER 2018-09-08 17:25 | Emergency (ER) | payer MEDICARE, MEDICAID ==
[~2018-09-08] VITALS: Ht 172.7 cm; Wt 100.0 kg
[~2018-09-08 17:25] MED LIST changes: +MEDDOSEPAK PO; +PROAIR HFA108 MCG/AC IN
[2018-09-08 18:01] LABS: HEMATOCRIT 35.1 % (37.0-47.0); HEMOGLOBIN 10.7 g/dl (12.0-16.0); IMMATURE GRANULOCYTES 0.3 % (0.0-5.0); MEAN CELL VOLUME 75.3 fL CALC (80.0-100.0); MEAN CORPUSCULAR HGB CONC 30.5 g/L CALC (32.0-36.0); NEUT# 6.13 thou/uL (2.00-7.15); RED BLOOD COUNT 4.66 mill/uL (4.20-5.60); RED CELL DISTRI WIDTH 18.6 % (11.5-15.5)
[2018-09-08 18:39] LABS: ALBUMIN 3.9 g/dL (3.2-5.0); ALKALINE PHOSPHATASE 84 u/l (38-126); AMYLASE 79 u/l (30-110); ANION GAP 11 (6-22 (CALC)); BILIRUBIN, TOTAL 0.2 mg/dL (0.0-1.4); BUN 15 mg/dL (8-23); BUN/CREATININE RATIO 20 (12-20 (CALC)); CARBON DIOXIDE 29 mmol/l (22-30); CHLORIDE 106 mmol/l (95-108); CREATININE 0.8 mg/dL (0.5-1.0); GFR > 60 ML/MIN (>=60 (CALC)); GFR FOR AFR.AMER. > 60 ML/MIN (>=60 (CALC)); POTASSIUM 3.7 mmol/l (3.5-5.1); SGOT/AST 23 u/l (9-36); SODIUM 142 mmol/l (137-146); TOTAL PROTEIN 7.1 g/dL (6.3-8.2)
--- NOTE | 2018-09-08 18:39 | NUR ---
BREATHING TREATMENT GIVEN BACK TO BACK FOR WHEEZES. BREATHING TECH. FOR GOOD DEPOSITION TO THE LUNGS.
[2018-09-08 18:51] LABS: MYOGLOBIN 32 ng/mL (0 - 62)
[2018-09-08 18:54] LABS: INTERNATIONAL NORMALIZED RATIO 0.9 RATIO (0.7-1.3); PROTHROMBIN TIME 9.5 SECONDS (9.0-12.5)
[2018-09-08] MEDS ORDERED: STERAPRED DS10 MG PO (19:47)
[2018-09-08 19:58] LABS: URINE BILIRUBIN - DIPSTICK NEGATIVE (NEGATIVE); URINE BLOOD DIPSTICK TRACE-INTACT (NEGATIVE); URINE CLARITY CLEAR; URINE COLOR YELLOW; URINE GLUCOSE - DIPSTICK NEGATIVE (NEGATIVE); URINE KETONE NEGATIVE (NEGATIVE); URINE LEUK ESTERASE NEGATIVE (NEGATIVE); URINE NITRITE - DIPSTICK NEGATIVE (Negative); URINE PH 6.5 (4.5-8.0); URINE PROTEIN - DIPSTICK NEGATIVE (NEG-TRACE); URINE SPECIFIC GRAVITY 1.015; URINE UROBILINOGEN - DIPSTICK 0.2 E.U./dL (0.2)
[2018-09-08 20:20] VITALS: BP 137/83
== END 2018-09-08 20:26 | disposition home or self-care (01) ==
LOC: ED 17:25
PROVIDERS: Emergency Medicine
DX: J44.1 Chronic obstructive pulmonary disease with (acute) exacerbation (principal); I10 Essential (primary) hypertension; F41.9 Anxiety disorder, unspecified; F17.200 Nicotine dependence, unspecified, uncomplicated; F32.9 Major depressive disorder, single episode, unspecified; R07.89 Other chest pain

== ENCOUNTER 2018-10-03 13:17 | Emergency (ER) | payer MEDICARE, MEDICAID ==
[~2018-10-03] VITALS: Ht 172.7 cm; Wt 100.0 kg
[~2018-10-03 13:17] MED LIST changes: +STERAPRED DS10 MG PO
[2018-10-03 14:03] LABS: URINE BILIRUBIN - DIPSTICK NEGATIVE (NEGATIVE); URINE BLOOD DIPSTICK TRACE-INTACT (NEGATIVE); URINE COLOR YELLOW; URINE GLUCOSE - DIPSTICK NEGATIVE (NEGATIVE); URINE KETONE NEGATIVE (NEGATIVE); URINE LEUK ESTERASE NEGATIVE (NEGATIVE); URINE NITRITE - DIPSTICK NEGATIVE (Negative); URINE PROTEIN - DIPSTICK NEGATIVE (NEG-TRACE); URINE SPECIFIC GRAVITY 1.015; URINE UROBILINOGEN - DIPSTICK 0.2 E.U./dL (0.2)
[2018-10-03 14:06] LABS: URINE CLARITY CLEAR
[2018-10-03] MEDS ORDERED: MEDDOSEPAK PO (15:13)
[2018-10-03 15:49] VITALS: BP 137/84
== END 2018-10-03 15:48 | disposition home or self-care (01) ==
LOC: ED 13:17
DX: M54.42 Lumbago with sciatica, left side (principal); I10 Essential (primary) hypertension; F17.210 Nicotine dependence, cigarettes, uncomplicated

== ENCOUNTER 2018-10-14 03:23 | Emergency (ER) | payer MEDICARE, MEDICAID ==
[~2018-10-14] VITALS: Ht 172.7 cm; Wt 102.0 kg
[2018-10-14 06:15] VITALS: BP 131/62
== END 2018-10-14 06:15 | disposition home or self-care (01) ==
LOC: ED 03:23
DX: M51.36 Other intervertebral disc degeneration, lumbar region (principal); G89.29 Other chronic pain

== ENCOUNTER 2018-11-09 21:10 | Emergency (ER) | payer MEDICARE, MEDICAID ==
[~2018-11-09] VITALS: Ht 172.7 cm; Wt 100.0 kg
[2018-11-09 22:07] LABS: HEMOGLOBIN 11.8 g/dl (12.0-16.0); IMMATURE GRANULOCYTES 0.4 % (0.0-5.0); MEAN CELL VOLUME 75.8 fL CALC (80.0-100.0); MEAN CORPUSCULAR HGB 23.6 pG CALC (26.0-32.0); MEAN CORPUSCULAR HGB CONC 31.1 g/L CALC (32.0-36.0); NEUT# 6.4 thou/uL (2.00-7.15); RED BLOOD COUNT 5.01 mill/uL (4.20-5.60); RED CELL DISTRI WIDTH 17.7 % (11.5-15.5)
[2018-11-09 22:19] LABS: ALBUMIN 4.1 g/dL (3.2-5.0); ALKALINE PHOSPHATASE 95 u/l (38-126); AMYLASE 69 u/l (30-110); ANION GAP 10 (6-22 (CALC)); BILIRUBIN, TOTAL 0.3 mg/dL (0.0-1.4); BUN 21 mg/dL (8-23); BUN/CREATININE RATIO 27 (12-20 (CALC)); CARBON DIOXIDE 28 mmol/l (22-30); CHLORIDE 105 mmol/l (95-108); CREATININE 0.8 mg/dL (0.5-1.0); GFR > 60 ML/MIN (>=60 (CALC)); GFR FOR AFR.AMER. > 60 ML/MIN (>=60 (CALC)); LIPASE 68 u/l (23-300); POTASSIUM 3.1 mmol/l (3.5-5.1); SGOT/AST 16 u/l (9-36); SODIUM 141 mmol/l (137-146); TOTAL PROTEIN 7.3 g/dL (6.3-8.2)
[2018-11-09 22:31] LABS: MYOGLOBIN 36 ng/mL (0 - 62)
[2018-11-10 06:37] VITALS: BP 140/85
== END 2018-11-10 06:42 | disposition home or self-care (01) ==
LOC: ED 21:10
PROVIDERS: Emergency Medicine
DX: R07.89 Other chest pain (principal); J44.9 Chronic obstructive pulmonary disease, unspecified; I10 Essential (primary) hypertension; E78.00 Pure hypercholesterolemia, unspecified; F32.9 Major depressive disorder, single episode, unspecified; F41.9 Anxiety disorder, unspecified; F17.200 Nicotine dependence, unspecified, uncomplicated; Z95.5 Presence of coronary angioplasty implant and graft

== ENCOUNTER 2019-01-21 10:54 | Emergency (ER) | payer MEDICARE, MEDICAID ==
[~2019-01-21] VITALS: Ht 172.7 cm; Wt 101.0 kg
[2019-01-21 12:35] LABS: HEMOGLOBIN 12.3 g/dl (12.0-16.0); IMMATURE GRANULOCYTES 0.2 % (0.0-5.0); MEAN CELL VOLUME 78.1 fL CALC (80.0-100.0); MEAN CORPUSCULAR HGB CONC 30.8 g/L CALC (32.0-36.0); NEUT# 6.68 thou/uL (2.00-7.15); RED BLOOD COUNT 5.12 mill/uL (4.20-5.60); RED CELL DISTRI WIDTH 17.2 % (11.5-15.5)
[2019-01-21 12:39] LABS: ALBUMIN 4.4 g/dL (3.2-5.0); ALKALINE PHOSPHATASE 99 u/l (38-126); ANION GAP 12 (6-22 (CALC)); BILIRUBIN, TOTAL 0.6 mg/dL (0.0-1.4); BUN 19 mg/dL (8-23); BUN/CREATININE RATIO 26 (12-20 (CALC)); CARBON DIOXIDE 31 mmol/l (22-30); CHLORIDE 99 mmol/l (95-108); CREATININE 0.7 mg/dL (0.5-1.0); GFR > 60 ML/MIN (>=60 (CALC)); GFR FOR AFR.AMER. > 60 ML/MIN (>=60 (CALC)); POTASSIUM 3.4 mmol/l (3.5-5.1); SODIUM 139 mmol/l (137-146); TOTAL PROTEIN 7.9 g/dL (6.3-8.2)
[2019-01-21 12:52] LABS: MYOGLOBIN 71 ng/mL (0 - 62)
[2019-01-21 12:53] LABS: SGOT/AST 66 u/l (9-36)
[2019-01-21] MEDS ORDERED: CEPHALEXIN500 M1 PO (13:44)
[2019-01-21] MEDS ORDERED: MEDDOSEPAK PO (13:44)
[2019-01-21 13:46] VITALS: BP 107/60
== END 2019-01-21 14:03 | disposition left against medical advice (07) ==
LOC: ED 10:54
PROVIDERS: Emergency Medicine
DX: R07.9 Chest pain, unspecified (principal); J44.1 Chronic obstructive pulmonary disease with (acute) exacerbation; I10 Essential (primary) hypertension; E78.00 Pure hypercholesterolemia, unspecified; F32.9 Major depressive disorder, single episode, unspecified; F41.9 Anxiety disorder, unspecified; F17.210 Nicotine dependence, cigarettes, uncomplicated; Z91.19 Patient's noncompliance with other medical treatment and regimen; R06.02 Shortness of breath

== ENCOUNTER 2019-02-02 13:00 | Emergency (ER) | payer MEDICARE, MEDICAID ==
[~2019-02-02] VITALS: Ht 172.7 cm; Wt 100.0 kg
[~2019-02-02 13:00] MED LIST changes: +CEPHALEXIN500 M1 PO
[2019-02-02 13:58] LABS: HEMATOCRIT 35.5 % (37.0-47.0); HEMOGLOBIN 10.6 g/dl (12.0-16.0); IMMATURE GRANULOCYTES 0.5 % (0.0-5.0); MEAN CELL VOLUME 79.8 fL CALC (80.0-100.0); MEAN CORPUSCULAR HGB 23.8 pG CALC (26.0-32.0); MEAN CORPUSCULAR HGB CONC 29.9 g/L CALC (32.0-36.0); NEUT# 8.47 thou/uL (2.00-7.15); RED BLOOD COUNT 4.45 mill/uL (4.20-5.60); RED CELL DISTRI WIDTH 17.3 % (11.5-15.5)
[2019-02-02 14:17] LABS: ALBUMIN 3.7 g/dL (3.2-5.0); ALKALINE PHOSPHATASE 87 u/l (38-126); ANION GAP 12 (6-22 (CALC)); BILIRUBIN, TOTAL 0.2 mg/dL (0.0-1.4); BUN 16 mg/dL (8-23); BUN/CREATININE RATIO 21 (12-20 (CALC)); CARBON DIOXIDE 27 mmol/l (22-30); CHLORIDE 102 mmol/l (95-108); CREATININE 0.7 mg/dL (0.5-1.0); GFR > 60 ML/MIN (>=60 (CALC)); GFR FOR AFR.AMER. > 60 ML/MIN (>=60 (CALC)); SGOT/AST 23 u/l (9-36); SODIUM 137 mmol/l (137-146); TOTAL PROTEIN 6.4 g/dL (6.3-8.2)
[2019-02-02 14:24] LABS: POTASSIUM 4.1 mmol/l (3.5-5.1)
[2019-02-02] MEDS ORDERED: PAROXETINE10 MG PO (15:37)
[2019-02-02] MEDS ORDERED: MEDDOSEPAK PO (17:03)
[2019-02-02] MEDS ORDERED: ZITHROMAX250 MG PO (17:03)
[2019-02-02 17:11] VITALS: BP 128/76
== END 2019-02-02 17:21 | disposition home or self-care (01) ==
LOC: ED 13:00
PROVIDERS: Emergency Medicine
DX: J44.1 Chronic obstructive pulmonary disease with (acute) exacerbation (principal); I10 Essential (primary) hypertension; F17.210 Nicotine dependence, cigarettes, uncomplicated; R07.9 Chest pain, unspecified
CPT/HCPCS: J3475

== ENCOUNTER 2019-03-01 16:43 | Inpatient (IN) | payer MEDICARE, MEDICAID ==
[~2019-03-01] VITALS: Ht 172.7 cm; Wt 110.9 kg
[~2019-03-01 16:43] MED LIST changes: +PAROXETINE10 MG PO; +ZITHROMAX250 MG PO
[2019-03-01] MEDS ORDERED: OXYCODONE HCL15 MG PO (17:08)
[2019-03-01 17:44] LABS: HEMATOCRIT 33.1 % (37.0-47.0); HEMOGLOBIN 9.9 g/dl (12.0-16.0); IMMATURE GRANULOCYTES 0.5 % (0.0-5.0); MEAN CELL VOLUME 78.6 fL CALC (80.0-100.0); MEAN CORPUSCULAR HGB 23.5 pG CALC (26.0-32.0); MEAN CORPUSCULAR HGB CONC 29.9 g/L CALC (32.0-36.0); NEUT# 6.98 thou/uL (2.00-7.15); RED BLOOD COUNT 4.21 mill/uL (4.20-5.60); RED CELL DISTRI WIDTH 15.9 % (11.5-15.5)
[2019-03-01 18:09] LABS: ALBUMIN 3.5 g/dL (3.2-5.0); ALKALINE PHOSPHATASE 91 u/l (38-126); BILIRUBIN, TOTAL 0.1 mg/dL (0.0-1.4); BUN 13 mg/dL (8-23); BUN/CREATININE RATIO 19 (12-20 (CALC)); CHLORIDE 102 mmol/l (95-108); CREATININE 0.7 mg/dL (0.5-1.0); GFR > 60 ML/MIN (>=60 (CALC)); GFR FOR AFR.AMER. > 60 ML/MIN (>=60 (CALC)); POTASSIUM 3.3 mmol/l (3.5-5.1); SGOT/AST 19 u/l (9-36); SODIUM 142 mmol/l (137-146); TOTAL PROTEIN 5.9 g/dL (6.3-8.2)
[2019-03-01 18:16] LABS: ANION GAP 7 (6-22 (CALC)); CARBON DIOXIDE 36 mmol/l (22-30)
[2019-03-01 20:00] VITALS: BP 152/84
[2019-03-01 20:16] LABS: URINE BILIRUBIN - DIPSTICK NEGATIVE (NEGATIVE); URINE BLOOD DIPSTICK TRACE-INTACT (NEGATIVE); URINE COLOR YELLOW; URINE GLUCOSE - DIPSTICK NEGATIVE (NEGATIVE); URINE KETONE NEGATIVE (NEGATIVE); URINE LEUK ESTERASE NEGATIVE (NEGATIVE); URINE NITRITE - DIPSTICK NEGATIVE (Negative); URINE PH 6.5 (4.5-8.0); URINE PROTEIN - DIPSTICK NEGATIVE (NEG-TRACE); URINE SPECIFIC GRAVITY <=1.005; URINE UROBILINOGEN - DIPSTICK 0.2 E.U./dL (0.2)
[2019-03-01 23:53] VITALS: BP 143/80
[2019-03-02] VITALS (7 sets, daily range): BP systolic 138–161; BP diastolic 74–91
[2019-03-02] MEDS ORDERED: MORPHINE SUL30 M3 PO (10:15)
[2019-03-02] MEDS ORDERED: LYRICA75 MG PO (10:16)
[2019-03-02] MEDS ORDERED: HYZAAR1 TA1 PO (10:16)
[2019-03-02] MEDS ORDERED: PROAIR HFA108 MCG/AC IN (10:25)
[2019-03-02] MEDS ORDERED: CHANTIX0.5 MG PO (10:26)
[2019-03-02] MEDS ORDERED: TIZANIDINE4 MG PO (10:27)
[2019-03-03] VITALS (48 sets, daily range): BP systolic 101–213; BP diastolic 69–148
[2019-03-03 04:36] LABS: HEMATOCRIT 36.6 % (37.0-47.0); HEMOGLOBIN 10.9 g/dl (12.0-16.0); IMMATURE GRANULOCYTES 1.5 % (0.0-5.0); MEAN CELL VOLUME 79.2 fL CALC (80.0-100.0); MEAN CORPUSCULAR HGB 23.6 pG CALC (26.0-32.0); MEAN CORPUSCULAR HGB CONC 29.8 g/L CALC (32.0-36.0); NEUT# 16.55 thou/uL (2.00-7.15); RED BLOOD COUNT 4.62 mill/uL (4.20-5.60); RED CELL DISTRI WIDTH 16.1 % (11.5-15.5)
[2019-03-03 05:04] LABS: ALBUMIN 3.8 g/dL (3.2-5.0); ALKALINE PHOSPHATASE 84 u/l (38-126); AMYLASE 43 u/l (30-110); ANION GAP 12 (6-22 (CALC)); BILIRUBIN, TOTAL 0.2 mg/dL (0.0-1.4); BUN 25 mg/dL (8-23); BUN/CREATININE RATIO 33 (12-20 (CALC)); CARBON DIOXIDE 30 mmol/l (22-30); CHLORIDE 107 mmol/l (95-108); CREATININE 0.8 mg/dL (0.5-1.0); GFR > 60 ML/MIN (>=60 (CALC)); GFR FOR AFR.AMER. > 60 ML/MIN (>=60 (CALC)); LIPASE 19 u/l (23-300); MAGNESIUM 2.1 mg/dL (1.6-2.3); SGOT/AST 14 u/l (9-36); SODIUM 144 mmol/l (137-146); TOTAL PROTEIN 6.6 g/dL (6.3-8.2)
[2019-03-03 05:06] LABS: POTASSIUM 4.7 mmol/l (3.5-5.1)
[2019-03-03 15:10] LABS: HEMATOCRIT 39.3 % (37.0-47.0); MEAN CORPUSCULAR HGB 23.7 pG CALC (26.0-32.0); PLATELET COUNT 377 thou/uL (130-400); RED BLOOD COUNT 4.65 mill/uL (4.20-5.60); RED CELL DISTRI WIDTH 16.3 % (11.5-15.5)
[2019-03-03 15:30] LABS: IMMATURE GRANULOCYTES 6.1 % (0.0-5.0); MEAN CELL VOLUME 84.5 fL CALC (80.0-100.0)
[2019-03-03 15:38] LABS: ALKALINE PHOSPHATASE 116 u/l (38-126); BILIRUBIN, TOTAL 0.2 mg/dL (0.0-1.4); BUN 26 mg/dL (8-23); BUN/CREATININE RATIO 25 (12-20 (CALC)); CHLORIDE 107 mmol/l (95-108); GFR 56 ML/MIN (>=60 (CALC)); GFR FOR AFR.AMER. > 60 ML/MIN (>=60 (CALC)); POTASSIUM 4.3 mmol/l (3.5-5.1); SODIUM 144 mmol/l (137-146)
[2019-03-03 15:39] LABS: MANUAL DIFFERENTIAL YES
[2019-03-03 15:40] LABS: BAND 5 % (0-8)
[2019-03-03 15:41] LABS: ANION GAP 23 (6-22 (CALC)); CARBON DIOXIDE 18 mmol/l (22-30); SGOT/AST 372 u/l (9-36)
[2019-03-04] VITALS (22 sets, daily range): BP systolic 127–175; BP diastolic 72–94
[2019-03-04 06:11] LABS: HEMOGLOBIN 9.7 g/dl (12.0-16.0); IMMATURE GRANULOCYTES 1.3 % (0.0-5.0); MEAN CORPUSCULAR HGB 23.5 pG CALC (26.0-32.0); MEAN CORPUSCULAR HGB CONC 29.9 g/L CALC (32.0-36.0); NEUT# 18.99 thou/uL (2.00-7.15); RED BLOOD COUNT 4.13 mill/uL (4.20-5.60); RED CELL DISTRI WIDTH 16.3 % (11.5-15.5)
[2019-03-04 06:14] LABS: HEMATOCRIT 32.4 % (37.0-47.0); MEAN CELL VOLUME 78.5 fL CALC (80.0-100.0)
[2019-03-04 06:21] LABS: ALBUMIN 3.4 g/dL (3.2-5.0); ALKALINE PHOSPHATASE 116 u/l (38-126); BILIRUBIN, TOTAL 0.1 mg/dL (0.0-1.4); BUN 22 mg/dL (8-23); BUN/CREATININE RATIO 30 (12-20 (CALC)); CHLORIDE 108 mmol/l (95-108); CREATININE 0.7 mg/dL (0.5-1.0); GFR > 60 ML/MIN (>=60 (CALC)); GFR FOR AFR.AMER. > 60 ML/MIN (>=60 (CALC)); MAGNESIUM 2.2 mg/dL (1.6-2.3); SGOT/AST 145 u/l (9-36); SODIUM 143 mmol/l (137-146); TOTAL PROTEIN 5.8 g/dL (6.3-8.2)
[2019-03-04 06:58] LABS: ANION GAP 10 (6-22 (CALC)); CARBON DIOXIDE 29 mmol/l (22-30)
[2019-03-04 12:53] LABS: URINE BILIRUBIN - DIPSTICK NEGATIVE (NEGATIVE); URINE BLOOD DIPSTICK SMALL (NEGATIVE); URINE COLOR YELLOW; URINE GLUCOSE - DIPSTICK NEGATIVE (NEGATIVE); URINE KETONE NEGATIVE (NEGATIVE); URINE LEUK ESTERASE NEGATIVE (Negative); URINE NITRITE - DIPSTICK NEGATIVE (Negative); URINE PH 5.5 (4.5-8.0); URINE PROTEIN - DIPSTICK NEGATIVE (NEG-TRACE); URINE SPECIFIC GRAVITY >=1.030; URINE UROBILINOGEN - DIPSTICK 0.2 E.U./dL (0.2)
[2019-03-04 13:04] LABS: URINE CLARITY CLEAR
[2019-03-04 13:06] LABS: URINE SQUAMOUS EPITHELIAL CELL FEW EPI/hpf (0-FEW)
[2019-03-05] VITALS (45 sets, daily range): BP systolic 101–202; BP diastolic 59–122
[2019-03-05 05:29] LABS: HEMATOCRIT 31.8 % (37.0-47.0); HEMOGLOBIN 9.8 g/dl (12.0-16.0); IMMATURE GRANULOCYTES 2.2 % (0.0-5.0); MEAN CORPUSCULAR HGB 23.7 pG CALC (26.0-32.0); MEAN CORPUSCULAR HGB CONC 30.8 g/L CALC (32.0-36.0); NEUT# 16.38 thou/uL (2.00-7.15); RED BLOOD COUNT 4.13 mill/uL (4.20-5.60); RED CELL DISTRI WIDTH 16.5 % (11.5-15.5)
[2019-03-05 05:37] LABS: ALBUMIN 3.2 g/dL (3.2-5.0); ALKALINE PHOSPHATASE 100 u/l (38-126); AMYLASE 31 u/l (30-110); ANION GAP 12 (6-22 (CALC)); BILIRUBIN, TOTAL 0.2 mg/dL (0.0-1.4); BUN 21 mg/dL (8-23); BUN/CREATININE RATIO 33 (12-20 (CALC)); CARBON DIOXIDE 27 mmol/l (22-30); CHLORIDE 107 mmol/l (95-108); CREATININE 0.6 mg/dL (0.5-1.0); GFR > 60 ML/MIN (>=60 (CALC)); GFR FOR AFR.AMER. > 60 ML/MIN (>=60 (CALC)); LIPASE 18 u/l (23-300); MAGNESIUM 2.3 mg/dL (1.6-2.3); POTASSIUM 3.8 mmol/l (3.5-5.1); SGOT/AST 40 u/l (9-36); SODIUM 142 mmol/l (137-146); TOTAL PROTEIN 5.6 g/dL (6.3-8.2)
[2019-03-06] VITALS (63 sets, daily range): BP systolic 104–200; BP diastolic 57–135
[2019-03-06 05:35] LABS: HEMATOCRIT 31.7 % (37.0-47.0); HEMOGLOBIN 9.8 g/dl (12.0-16.0); IMMATURE GRANULOCYTES 1.9 % (0.0-5.0); MEAN CORPUSCULAR HGB 23.5 pG CALC (26.0-32.0); MEAN CORPUSCULAR HGB CONC 30.9 g/L CALC (32.0-36.0); NEUT# 14.33 thou/uL (2.00-7.15); RED BLOOD COUNT 4.17 mill/uL (4.20-5.60); RED CELL DISTRI WIDTH 16.5 % (11.5-15.5)
[2019-03-06 06:09] LABS: ALKALINE PHOSPHATASE 85 u/l (38-126); ANION GAP 12 (6-22 (CALC)); BILIRUBIN, TOTAL 0.2 mg/dL (0.0-1.4); BUN 25 mg/dL (8-23); BUN/CREATININE RATIO 41 (12-20 (CALC)); CARBON DIOXIDE 26 mmol/l (22-30); CHLORIDE 106 mmol/l (95-108); CREATININE 0.6 mg/dL (0.5-1.0); GFR > 60 ML/MIN (>=60 (CALC)); GFR FOR AFR.AMER. > 60 ML/MIN (>=60 (CALC)); MAGNESIUM 2.5 mg/dL (1.6-2.3); POTASSIUM 3.8 mmol/l (3.5-5.1); SGOT/AST 20 u/l (9-36); SODIUM 140 mmol/l (137-146); TOTAL PROTEIN 5.4 g/dL (6.3-8.2)
[2019-03-07] VITALS (50 sets, daily range): BP systolic 131–181; BP diastolic 77–105
[2019-03-07 05:33] LABS: HEMOGLOBIN 9.9 g/dl (12.0-16.0); IMMATURE GRANULOCYTES 4.5 % (0.0-5.0); MEAN CELL VOLUME 75.5 fL CALC (80.0-100.0); MEAN CORPUSCULAR HGB 23.3 pG CALC (26.0-32.0); MEAN CORPUSCULAR HGB CONC 30.9 g/L CALC (32.0-36.0); NEUT# 13.53 thou/uL (2.00-7.15); RED BLOOD COUNT 4.24 mill/uL (4.20-5.60); RED CELL DISTRI WIDTH 16.4 % (11.5-15.5)
[2019-03-07 05:57] LABS: ALKALINE PHOSPHATASE 82 u/l (38-126); ANION GAP 10 (6-22 (CALC)); BILIRUBIN, TOTAL 0.2 mg/dL (0.0-1.4); BUN 27 mg/dL (8-23); BUN/CREATININE RATIO 37 (12-20 (CALC)); CARBON DIOXIDE 30 mmol/l (22-30); CHLORIDE 106 mmol/l (95-108); CREATININE 0.7 mg/dL (0.5-1.0); GFR > 60 ML/MIN (>=60 (CALC)); GFR FOR AFR.AMER. > 60 ML/MIN (>=60 (CALC)); MAGNESIUM 2.8 mg/dL (1.6-2.3); POTASSIUM 3.6 mmol/l (3.5-5.1); SGOT/AST 15 u/l (9-36); SODIUM 142 mmol/l (137-146); TOTAL PROTEIN 5.5 g/dL (6.3-8.2)
== END 2019-03-07 16:19 | DRG 207 ==
LOC: ED 16:43 → ED-I 18:43 → ED 19:00 → MS2 19:01 → ICU 19:01
PROVIDERS: Emergency Medicine; Family Medicine; Internal Medicine Nephrology; ADMIT Internal Medicine; ATTEND Internal Medicine
PROC: 06HM33Z Insertion of Infusion Device into Right Femoral Vein, Percutaneous Approach (ICD-10-PCS; principal; 2019-03-03)
PROC: 5A1955Z Respiratory Ventilation, Greater than 96 Consecutive Hours (ICD-10-PCS; 2019-03-03)
PROC: 5A12012 Performance of Cardiac Output, Single, Manual (ICD-10-PCS; 2019-03-03)
PROC: 0BH17EZ Insertion of Endotracheal Airway into Trachea, Via Natural or Artificial Opening (ICD-10-PCS; 2019-03-03)
DX: J96.02 Acute respiratory failure with hypercapnia (principal); I46.8 Cardiac arrest due to other underlying condition; J44.1 Chronic obstructive pulmonary disease with (acute) exacerbation; J96.01 Acute respiratory failure with hypoxia; I25.10 Atherosclerotic heart disease of native coronary artery without angina pectoris; F41.8 Other specified anxiety disorders; I10 Essential (primary) hypertension; E78.5 Hyperlipidemia, unspecified; G89.4 Chronic pain syndrome; M54.9 Dorsalgia, unspecified; M54.2 Cervicalgia; E66.9 Obesity, unspecified; F17.210 Nicotine dependence, cigarettes, uncomplicated; D64.9 Anemia, unspecified; R79.89 Other specified abnormal findings of blood chemistry; Z68.34 Body mass index [BMI] 34.0-34.9, adult; Z95.5 Presence of coronary angioplasty implant and graft
CPT/HCPCS: J1650; S0164

== ENCOUNTER 2019-03-10 13:48 | Inpatient (IN) | payer MEDICARE, MEDICAID ==
[~2019-03-10] VITALS: Ht 172.7 cm; Wt 111.5 kg
[2019-03-10] VITALS (12 sets, daily range): BP systolic 123–187; BP diastolic 73–113
[~2019-03-10 13:48] MED LIST changes: +CHANTIX0.5 MG PO; +HYZAAR1 TA1 PO; +LYRICA75 MG PO; +OXYCODONE HCL15 MG PO; +TIZANIDINE4 MG PO
[2019-03-11] VITALS (18 sets, daily range): BP systolic 110–155; BP diastolic 53–84
[2019-03-11 04:43] LABS: HEMATOCRIT 30.9 % (37.0-47.0); HEMOGLOBIN 9.2 g/dl (12.0-16.0); IMMATURE GRANULOCYTES 3.5 % (0.0-5.0); MEAN CELL VOLUME 78.8 fL CALC (80.0-100.0); MEAN CORPUSCULAR HGB 23.5 pG CALC (26.0-32.0); MEAN CORPUSCULAR HGB CONC 29.8 g/L CALC (32.0-36.0); NEUT# 17.88 thou/uL (2.00-7.15); RED BLOOD COUNT 3.92 mill/uL (4.20-5.60); RED CELL DISTRI WIDTH 15.9 % (11.5-15.5)
[2019-03-11 04:54] LABS: ALBUMIN 3.1 g/dL (3.2-5.0); ALKALINE PHOSPHATASE 61 u/l (38-126); AMYLASE 50 u/l (30-110); ANION GAP 9 (6-22 (CALC)); BILIRUBIN, TOTAL 0.3 mg/dL (0.0-1.4); BUN 22 mg/dL (8-23); BUN/CREATININE RATIO 37 (12-20 (CALC)); CARBON DIOXIDE 33 mmol/l (22-30); CHLORIDE 102 mmol/l (95-108); CREATININE 0.6 mg/dL (0.5-1.0); GFR > 60 ML/MIN (>=60 (CALC)); GFR FOR AFR.AMER. > 60 ML/MIN (>=60 (CALC)); LIPASE 42 u/l (23-300); MAGNESIUM 2.3 mg/dL (1.6-2.3); SGOT/AST 20 u/l (9-36); SODIUM 140 mmol/l (137-146); TOTAL PROTEIN 5.5 g/dL (6.3-8.2)
[2019-03-12] VITALS (8 sets, daily range): BP systolic 82–131; BP diastolic 53–85
[2019-03-12 05:31] LABS: HEMATOCRIT 30.2 % (37.0-47.0); HEMOGLOBIN 8.9 g/dl (12.0-16.0); MEAN CELL VOLUME 79.7 fL CALC (80.0-100.0); MEAN CORPUSCULAR HGB 23.5 pG CALC (26.0-32.0); MEAN CORPUSCULAR HGB CONC 29.5 g/L CALC (32.0-36.0); NEUT# 13.19 thou/uL (2.00-7.15); RED BLOOD COUNT 3.79 mill/uL (4.20-5.60); RED CELL DISTRI WIDTH 15.9 % (11.5-15.5)
[2019-03-12 05:58] LABS: ANION GAP 8 (6-22 (CALC)); BUN 19 mg/dL (8-23); BUN/CREATININE RATIO 34 (12-20 (CALC)); CARBON DIOXIDE 37 mmol/l (22-30); CHLORIDE 100 mmol/l (95-108); CREATININE 0.6 mg/dL (0.5-1.0); GFR > 60 ML/MIN (>=60 (CALC)); GFR FOR AFR.AMER. > 60 ML/MIN (>=60 (CALC)); POTASSIUM 3.5 mmol/l (3.5-5.1); SODIUM 141 mmol/l (137-146)
[2019-03-13] VITALS (13 sets, daily range): BP systolic 104–164; BP diastolic 58–84
[2019-03-14] VITALS (24 sets, daily range): BP systolic 94–138; BP diastolic 50–89
[2019-03-14 05:36] LABS: HEMOGLOBIN 8.5 g/dl (12.0-16.0); IMMATURE GRANULOCYTES 1.1 % (0.0-5.0); MEAN CELL VOLUME 78.4 fL CALC (80.0-100.0); MEAN CORPUSCULAR HGB 23.8 pG CALC (26.0-32.0); MEAN CORPUSCULAR HGB CONC 30.4 g/L CALC (32.0-36.0); NEUT# 19.44 thou/uL (2.00-7.15); RED BLOOD COUNT 3.57 mill/uL (4.20-5.60); RED CELL DISTRI WIDTH 15.8 % (11.5-15.5)
[2019-03-14 06:21] LABS: ANION GAP 8 (6-22 (CALC)); BUN 15 mg/dL (8-23); BUN/CREATININE RATIO 29 (12-20 (CALC)); CARBON DIOXIDE 37 mmol/l (22-30); CHLORIDE 96 mmol/l (95-108); CREATININE 0.5 mg/dL (0.5-1.0); GFR > 60 ML/MIN (>=60 (CALC)); GFR FOR AFR.AMER. > 60 ML/MIN (>=60 (CALC)); MAGNESIUM 1.9 mg/dL (1.6-2.3); SODIUM 137 mmol/l (137-146)
[2019-03-14 06:26] LABS: POTASSIUM 4.4 mmol/l (3.5-5.1)
[2019-03-15] VITALS (18 sets, daily range): BP systolic 88–110; BP diastolic 56–77
[2019-03-15 05:22] LABS: HEMATOCRIT 25.3 % (37.0-47.0); HEMOGLOBIN 7.8 g/dl (12.0-16.0); IMMATURE GRANULOCYTES 0.8 % (0.0-5.0); MEAN CELL VOLUME 79.3 fL CALC (80.0-100.0); MEAN CORPUSCULAR HGB 24.5 pG CALC (26.0-32.0); MEAN CORPUSCULAR HGB CONC 30.8 g/L CALC (32.0-36.0); NEUT# 12.1 thou/uL (2.00-7.15); RED BLOOD COUNT 3.19 mill/uL (4.20-5.60); RED CELL DISTRI WIDTH 15.9 % (11.5-15.5)
[2019-03-15 05:58] LABS: ALBUMIN 2.9 g/dL (3.2-5.0); ALKALINE PHOSPHATASE 60 u/l (38-126); ANION GAP 7 (6-22 (CALC)); BILIRUBIN, TOTAL 0.2 mg/dL (0.0-1.4); BUN 15 mg/dL (8-23); BUN/CREATININE RATIO 24 (12-20 (CALC)); CARBON DIOXIDE 37 mmol/l (22-30); CHLORIDE 100 mmol/l (95-108); CREATININE 0.6 mg/dL (0.5-1.0); GFR > 60 ML/MIN (>=60 (CALC)); GFR FOR AFR.AMER. > 60 ML/MIN (>=60 (CALC)); POTASSIUM 3.6 mmol/l (3.5-5.1); SGOT/AST 19 u/l (9-36); SODIUM 141 mmol/l (137-146)
[2019-03-16] VITALS (26 sets, daily range): BP systolic 95–158; BP diastolic 50–83
[2019-03-16 05:17] LABS: HEMATOCRIT 26.6 % (37.0-47.0); HEMOGLOBIN 7.9 g/dl (12.0-16.0); IMMATURE GRANULOCYTES 0.7 % (0.0-5.0); MEAN CELL VOLUME 80.1 fL CALC (80.0-100.0); MEAN CORPUSCULAR HGB 23.8 pG CALC (26.0-32.0); MEAN CORPUSCULAR HGB CONC 29.7 g/L CALC (32.0-36.0); NEUT# 8.57 thou/uL (2.00-7.15); RED BLOOD COUNT 3.32 mill/uL (4.20-5.60)
[2019-03-16 05:43] LABS: ALBUMIN 3.1 g/dL (3.2-5.0); ALKALINE PHOSPHATASE 68 u/l (38-126); ANION GAP 10 (6-22 (CALC)); BILIRUBIN, TOTAL 0.3 mg/dL (0.0-1.4); BUN 16 mg/dL (8-23); BUN/CREATININE RATIO 25 (12-20 (CALC)); CARBON DIOXIDE 37 mmol/l (22-30); CHLORIDE 97 mmol/l (95-108); CREATININE 0.6 mg/dL (0.5-1.0); GFR > 60 ML/MIN (>=60 (CALC)); GFR FOR AFR.AMER. > 60 ML/MIN (>=60 (CALC)); MAGNESIUM 1.8 mg/dL (1.6-2.3); POTASSIUM 3.9 mmol/l (3.5-5.1); SGOT/AST 15 u/l (9-36); SODIUM 140 mmol/l (137-146); TOTAL PROTEIN 5.4 g/dL (6.3-8.2)
[2019-03-17] VITALS (15 sets, daily range): BP systolic 107–152; BP diastolic 57–80
[2019-03-17 04:37] LABS: IMMATURE GRANULOCYTES 0.5 % (0.0-5.0); MEAN CELL VOLUME 80.3 fL CALC (80.0-100.0); MEAN CORPUSCULAR HGB 24.5 pG CALC (26.0-32.0); MEAN CORPUSCULAR HGB CONC 30.5 g/L CALC (32.0-36.0); NEUT# 10.17 thou/uL (2.00-7.15); RED BLOOD COUNT 4.12 mill/uL (4.20-5.60); RED CELL DISTRI WIDTH 15.9 % (11.5-15.5)
[2019-03-17 04:38] LABS: HEMATOCRIT 33.1 % (37.0-47.0); HEMOGLOBIN 10.1 g/dl (12.0-16.0)
[2019-03-17 05:05] LABS: ALBUMIN 3.5 g/dL (3.2-5.0); ALKALINE PHOSPHATASE 81 u/l (38-126); ANION GAP 13 (6-22 (CALC)); BILIRUBIN, TOTAL 0.5 mg/dL (0.0-1.4); BUN 9 mg/dL (8-23); BUN/CREATININE RATIO 14 (12-20 (CALC)); CARBON DIOXIDE 35 mmol/l (22-30); CHLORIDE 98 mmol/l (95-108); CREATININE 0.7 mg/dL (0.5-1.0); GFR > 60 ML/MIN (>=60 (CALC)); GFR FOR AFR.AMER. > 60 ML/MIN (>=60 (CALC)); MAGNESIUM 1.8 mg/dL (1.6-2.3); POTASSIUM 4.4 mmol/l (3.5-5.1); SGOT/AST 18 u/l (9-36); SODIUM 142 mmol/l (137-146); TOTAL PROTEIN 5.8 g/dL (6.3-8.2)
[2019-03-18] VITALS (8 sets, daily range): BP systolic 103–139; BP diastolic 52–84
[2019-03-18] MEDS ORDERED: PREDNISONE10 MG PO (10:44)
[2019-03-18] MEDS ORDERED: ALBUTEROL SUL0.083 % IN (10:44)
[2019-03-18] MEDS ORDERED: SPIRIVA RE2.5 MCG/AC IN (10:44)
== END 2019-03-18 16:35 | disposition home health service (06) | DRG 190 ==
LOC: ICU 13:48 → MS2 03-12 16:27 → ICU 03-13 18:16
PROVIDERS: ADMIT Internal Medicine Nephrology; ATTEND Internal Medicine
PROC: 5A09357 Assistance with Respiratory Ventilation, Less than 24 Consecutive Hours, Continuous Positive Airway Pressure (ICD-10-PCS; principal; 2019-03-13)
PROC: 0T2BX0Z Change Drainage Device in Bladder, External Approach (ICD-10-PCS; 2019-03-13)
PROC: 30233N1 Transfusion of Nonautologous Red Blood Cells into Peripheral Vein, Percutaneous Approach (ICD-10-PCS; 2019-03-16)
PROC: 30233N1 Transfusion of Nonautologous Red Blood Cells into Peripheral Vein, Percutaneous Approach (ICD-10-PCS; 2019-03-16)
DX: J44.1 Chronic obstructive pulmonary disease with (acute) exacerbation (principal); J96.02 Acute respiratory failure with hypercapnia; J96.01 Acute respiratory failure with hypoxia; I10 Essential (primary) hypertension; I25.10 Atherosclerotic heart disease of native coronary artery without angina pectoris; D64.9 Anemia, unspecified; G89.4 Chronic pain syndrome; M48.00 Spinal stenosis, site unspecified; F41.1 Generalized anxiety disorder; F32.9 Major depressive disorder, single episode, unspecified; E78.5 Hyperlipidemia, unspecified; G47.33 Obstructive sleep apnea (adult) (pediatric); E66.9 Obesity, unspecified; F17.200 Nicotine dependence, unspecified, uncomplicated; Z68.37 Body mass index [BMI] 37.0-37.9, adult; Z95.5 Presence of coronary angioplasty implant and graft; Z79.891 Long term (current) use of opiate analgesic
CPT/HCPCS: P9016

== ENCOUNTER 2019-04-05 23:00 | Observation (INO) | payer MEDICARE, MEDICAID ==
[~2019-04-05] VITALS: Ht 172.7 cm; Wt 101.7 kg
[~2019-04-05 23:00] MED LIST changes: +ALBUTEROL SUL0.083 % IN; +SPIRIVA RE2.5 MCG/AC IN
--- NOTE | 2019-04-05 23:27 | NUR ---
RESP. THERAPIST IN ROOM TO ADMINISTER BREATHING TX.
--- NOTE | 2019-04-05 23:41 | NUR ---
ATTEMPTED TO ACCESS PORT X 2 WITHOUT SUCCESS.
--- NOTE | 2019-04-05 23:50 | NUR ---
X2 ATTEMPTS FOR IV ACCESS UNSUCCESSFUL.
[2019-04-06] VITALS (8 sets, daily range): BP systolic 142–184; BP diastolic 67–89
[2019-04-06 00:05] LABS: HEMATOCRIT 34.7 % (37.0-47.0); HEMOGLOBIN 10.5 g/dl (12.0-16.0); IMMATURE GRANULOCYTES 0.4 % (0.0-5.0); MEAN CELL VOLUME 80.7 fL CALC (80.0-100.0); MEAN CORPUSCULAR HGB 24.4 pG CALC (26.0-32.0); MEAN CORPUSCULAR HGB CONC 30.3 g/L CALC (32.0-36.0); NEUT# 7.01 thou/uL (2.00-7.15); RED BLOOD COUNT 4.3 mill/uL (4.20-5.60); RED CELL DISTRI WIDTH 16.4 % (11.5-15.5)
[2019-04-06 00:17] LABS: ALBUMIN 3.9 g/dL (3.2-5.0); ALKALINE PHOSPHATASE 98 u/l (38-126); AMYLASE 39 u/l (30-110); BILIRUBIN, TOTAL 0.3 mg/dL (0.0-1.4); BUN 15 mg/dL (8-23); BUN/CREATININE RATIO 21 (12-20 (CALC)); CARBON DIOXIDE 31 mmol/l (22-30); CHLORIDE 105 mmol/l (95-108); CREATININE 0.7 mg/dL (0.5-1.0); GFR > 60 ML/MIN (>=60 (CALC)); GFR FOR AFR.AMER. > 60 ML/MIN (>=60 (CALC)); LIPASE 31 u/l (23-300); SGOT/AST 17 u/l (9-36); SODIUM 142 mmol/l (137-146); TOTAL PROTEIN 6.4 g/dL (6.3-8.2)
--- NOTE | 2019-04-06 00:26 | NUR ---
IV PAIN MED AND IV SOLU-MEDROL GIVEN PER MD ORDER.
[2019-04-06 00:29] LABS: MYOGLOBIN 28 ng/mL (0 - 62)
[2019-04-06 00:38] LABS: ANION GAP 10 (6-22 (CALC)); POTASSIUM 3.5 mmol/l (3.5-5.1)
[2019-04-06 00:40] LABS: ACT PARTIAL THROMBO TIME 23.8 SECONDS (20.0-32.5); D-DIMER 1.34 mg/L (0.19-0.60); INTERNATIONAL NORMALIZED RATIO 0.9 RATIO (0.7-1.3); PROTHROMBIN TIME 9.4 SECONDS (9.0-12.5)
--- NOTE | 2019-04-06 01:26 | NUR ---
PT. STATES, " I DON'T HAVE A COUGH WITH THIS CP, LAST TIME I DID."
--- NOTE | 2019-04-06 02:12 | NUR ---
PT. STATES HER CP HAS ONLY DECREASED TO A 7 ON A SCALE OF 1-10, MD AWARE.
--- NOTE | 2019-04-06 02:45 | NUR ---
MD IN ROOM TO DISCUSS CLINICAL FINDINGS WITH PT. AND TO ALSO MAKE HER AWARE OF ADMISSION, VERBALIZED UNDERSTANDING.
--- NOTE | 2019-04-06 03:00 | NUR ---
Admission Note Report Given to: ESTUARDO CARDONA Transported by: Wheelchair X Stretcher Transported with: Nurse X Transporter X Patent IV X O2 X Aquatics Specialist
--- NOTE | 2019-04-06 03:05 | NUR ---
PT. TAKEN TO DC FLOOR VIA STRETCHER.
--- NOTE | 2019-04-06 03:09 | NUR ---
PT ARRIVED TO FLOOR VIA STRETCHER ACCOMPAINED BY ER STAFF. PT ALERT AND ORIENTED X3. RESPIRATIONS APPEAR LABORED AND PT GRUNTING, ON 2L/M VIA NC O2 SAT 98% AT THIS TIME. PT AMBULATED WITH STAND BY ASSIST FROM STRETCHER TO BED WITH STEADY GAIT. SKIN INTACT. RIGHT UPPER CHEST PORT ACCESSES IN ER SITE APPEARS HEALTHY. DAIRY HUSBANDRY WORKER IN PLACE INITIAL READING SR 86. PT C/O CHEST PAIN 07/08 ENCOURAGED RELAXATION AND DISCUSSED MEDICATIONS ORDERED AND POC. PT VERBALIZED UNDERSTANDING, WILL MEDICATE SOON MEDICATIONS AVAILABLE. PT UP TO BSC AND VOIDED WITHOUT DIFFICULTY. PT ORIENTED TO ROOM AND CALL LIGHT SYSTEM. PT VOICES NO OTHER NEEDS AT THIS TIME, WILL CONTINUE TO MONITOR.
--- NOTE | 2019-04-06 07:05 | NUR ---
REPORT RECEIVED FROM DULCE MARTE;PT RESTING IN SEMI FOWLERS POSITION,A&O X3;INTRODUCED SELF TO PT AND POC DISCUSSED;PT DENIES ANY CURRENT PAIN OR NEEDS;RESPIRATIONS SHALLOW ON O2 @ 2L VIA NC;TELE MONITORING IN PLACE;PT ENCOURAGED TO CALL FOR ASSISTANCE IF NEEDED;CALL LIGHT IN REACH;WILL CONTINUE TO MONITOR
--- NOTE | 2019-04-06 08:20 | NUR ---
PT RESTING IN SEMI FOWLERS POSITION, A&O X3;VS OBTAINED AND ASSESSMENT COMPLETED;CURRENT BP 170/79 HR 95;PT REPORTS CHEST PRESSURE RATING 7/10 ON THE PAIN SCALE AND REQUESTS PAIN MEDICATION, PT MEDICATED WITH MORPHINE 2MG IVP AT THIS TIME;RESPIRATIONS SHALLOW ON O2 @ 2L VIA NC;ABDOMEN DISTENDED/SOFT ON PALPATION AND ACTIVE IN ALL 4 QUADRANTS;STRONG PEDAL PULSES;SKIN INTACT;RIGHT UPPER CHEST PORT FLUSHED AND PATENT,SITE APPEARS HEALTHY;TELE MONITORING IN PLACE;CONTACT PRECAUTIONS IN PLACE;PT DENIES ANY ADDITIONAL NEEDS AND IS ENCOURAGED TO CALL FOR ASSISTANCE IF NEEDED;FALL PRECAUTIONS IN PLACE WITH CALL LIGHT IN REACH;WILL CONTINUE TO MONITOR
--- NOTE | 2019-04-06 09:10 | NUR ---
BP RE-CHECK 142/67 HR 90;PT REPORTS DECREASE CHEST PRESSURE AND DENIES ANY ADDITIONAL NEEDS.WILL CONTINUE TO MONITOR
--- NOTE | 2019-04-06 11:15 | NUR ---
PT RESTING IN BED EATING LUNCH;RESPIRATIONS EVEN AND UNLABORED,SHALLOW ON O2 @ 2L VIA NC;PT DENIES ANY ADDITIONAL NEEDS AT THIS TIME;TELE MONITORING IN PLACE;PT ENCOURAGED TO CALL FOR ASSISTANCE IF NEEDED;CALL LIGHT IN REACH;WILL CONTINUE TO MONITOR
--- NOTE | 2019-04-06 11:49 | NUR ---
AT BEDSIDE DISCUSSING POC.
--- NOTE | 2019-04-06 17:50 | NUR ---
PT RESTING IN SEMI FOWLERS POSITION EATING DINNER;RESPIRATIONS EVEN AND UNLABORED,SHALLOW ON O2 @ 2L VIA NC;PT REPORTS THAT CHEST PAIN HAS DECREASED AT THIS TIME;RIGHT UPPER CHEST PORT PATENT;TELE MONITOR IN PLACE;PT DENIES ANY ADDITIONAL NEEDS AND IS ENCOURAGED TO CALL FOR ASSISTANCE IF NEEDED;CALL LIGHT IN REACH;WILL CONTINUE TO MONITOR
--- NOTE | 2019-04-06 19:01 | NUR ---
REPORT FROM JS CARDONA. PT SITTING UP IN BED. RESTING AT THIS TIME. ALERT AND ORIENTED. RESPIRATIONS EVEN AND UNLABORED. 02 @ 2L/M VIA NC. NO S/S OF DISTRESS NOTED. PT DENIES ANY PAIN OR DISCOMFORT. DISCUSSED POC. PT VERBALIZED UNDERSTANDING. RIGHT UPPER CHEST PORT ACCESSED, SITE CDI. CALL LIGHT WITHIN REACH. WILL CONTINUE TO MONITOR.
--- NOTE | 2019-04-06 22:34 | NUR ---
ER LAND LEASES AND RENTALS MANAGER INFORMED PHOTOCOPYING EQUIPMENT MECHANIC OF 8 BEAT RUN OF V-TACH. PT CURRENT TELEMETRY READING SR IN THE 80S. PT DENIES ANY WORSENING OF CHEST PAIN OR ANY NEW SYMPTOMS AT THIS TIME. BP ELEVATED WELL 184/85. EKG OBTAINED. ER PHYSICIAN NOTIFIED AND NEW ORDERS RECEIVED AT THIS TIME. WILL MEDICATE AND CONTINUE TO MONITOR.
[2019-04-07] VITALS (11 sets, daily range): BP systolic 145–196; BP diastolic 81–96
--- NOTE | 2019-04-07 01:32 | NUR ---
PT MEDICATED FOR CHEST PAIN WITH PRN IV MORPHINE. CALL LIGHT WITHIN REACH. WILL CONTINUE TO MONITOR.
--- NOTE | 2019-04-07 04:19 | NUR ---
PT BP ELEVATED 183/96. PT CONTINUES TO REFUSED NITRO PASTE. ER PHYSICIAN NOTIFIED ORDERS RECEIEVED. WILL MEDICATE ORDERED AND CONTINUE TO MONITOR.
[2019-04-07 05:17] LABS: HEMOGLOBIN 10.5 g/dl (12.0-16.0); RED BLOOD COUNT 4.32 mill/uL (4.20-5.60)
[2019-04-07 05:18] LABS: HEMATOCRIT 34.4 % (37.0-47.0); IMMATURE GRANULOCYTES 1.9 % (0.0-5.0); MEAN CELL VOLUME 79.6 fL CALC (80.0-100.0); MEAN CORPUSCULAR HGB 24.3 pG CALC (26.0-32.0); MEAN CORPUSCULAR HGB CONC 30.5 g/L CALC (32.0-36.0); NEUT# 19.76 thou/uL (2.00-7.15); RED CELL DISTRI WIDTH 16.3 % (11.5-15.5)
[2019-04-07 05:43] LABS: ALBUMIN 3.9 g/dL (3.2-5.0); ALKALINE PHOSPHATASE 96 u/l (38-126); AMYLASE 44 u/l (30-110); BILIRUBIN, TOTAL 0.2 mg/dL (0.0-1.4); BUN 20 mg/dL (8-23); BUN/CREATININE RATIO 28 (12-20 (CALC)); CARBON DIOXIDE 31 mmol/l (22-30); CHLORIDE 102 mmol/l (95-108); CREATININE 0.7 mg/dL (0.5-1.0); GFR > 60 ML/MIN (>=60 (CALC)); GFR FOR AFR.AMER. > 60 ML/MIN (>=60 (CALC)); LIPASE 19 u/l (23-300); SGOT/AST 13 u/l (9-36); SODIUM 140 mmol/l (137-146); TOTAL PROTEIN 6.4 g/dL (6.3-8.2)
[2019-04-07 05:47] LABS: ANION GAP 11 (6-22 (CALC)); POTASSIUM 4.3 mmol/l (3.5-5.1)
--- NOTE | 2019-04-07 06:33 | NUR ---
PT REFUSED NITRO PASTE AFTER SEVERAL ATTEMPTS. EDUCATION PROVIDED. ER PHYSICIAN AWARE. CURRENT BP 164/88. WILL CONTINUE TO MONITOR.
--- NOTE | 2019-04-07 08:16 | NUR ---
ASSESSMENT IS COMPLETED: IV SITE IS FREE FROM REDNESS OR EDEMA. HR IS REG,PULSES ARE STRONG X4, ABD IS SOFT WITH ACTIVE BS. BREATH SOUNDS ARE CLEAR, COARSE AN DIMINISHED. TELE MONITOR IN PLACE. PT IS ON O2 @ 2LITERS WITH NC. CONTINUE TO OBSERVE AND MONITOR.
--- NOTE | 2019-04-07 11:51 | NUR ---
INQUIRED WITH PT ABOUT NTG OINTMENT PT IS REFUSING.
--- NOTE | 2019-04-07 12:30 | NUR ---
PT IS RELAXING IN BED WITH NO DISTRESS NOTED. IV SITE IS FREE FROM REDNESS OR EDEMA. TELE MONITOR IN PLACE.
--- NOTE | 2019-04-07 16:30 | NUR ---
PT REMAINS RELAXING IN BED WITH NO DISTRESS NOTED. IV SITE IS FREE FROM REDNESS OR EDEMA.
--- NOTE | 2019-04-07 19:00 | NUR ---
REPORT FROM JERMAINE CARDONA. PT SITTING UP IN BED ALERT AND ORIENTED. NO S/S OF DISTRESS NOTED. RUC PORT ACCESSED, SITE CDI. RESPIRATIONS EVEN AND UNLABORED. 02 @ 2L/M VIA NC. C/O CHEST PAIN 6-10. DISCUSSED POC. PT VERBALIZED UNDERSTANDING. WILL MEDICATED AT NEXT AVAILABLE DUE TIME. CALL LIGHT WITHIN REACH. WILL CONTINUE TO MONITOR.
--- NOTE | 2019-04-07 19:44 | NUR ---
PT MEDICATED FOR CHEST PAIN 6-10. BP NOTED TO BE ELEVATED. NO DISTRESS NOTED. ADMINISTERED SCHEDULED BP MEDICATION AT THIS TIME, WILL REACESS AND CONTINUE TO MONITOR.
--- NOTE | 2019-04-07 21:05 | NUR ---
PT BP REMAINED ELEVATED. ACADEMIC SUPPORT DIRECTOR PHYSICIAN MADE AWARE. NEW ORDERS RECIEVED. WILL ADMINISTER ORDERED AND CONTINUE TO MONITOR. CALL LIGHT WITHIN REACH. WILL CONTINUE TO MONITOR.
--- NOTE | 2019-04-07 23:29 | NUR ---
PT MEDICATED FOR BP 180/93,HR77. WILL CONTINUE TO MONITOR FOR BP
[2019-04-08 01:03] VITALS: BP 154/85
[2019-04-08 02:33] VITALS: BP 176/90
--- NOTE | 2019-04-08 04:39 | NUR ---
LABS OBTAINED. PORT FLUSHED PER PROTOCOL. PT TOLERATED WELL.
[2019-04-08 04:41] VITALS: BP 156/74
[2019-04-08 05:10] LABS: HEMATOCRIT 33.9 % (37.0-47.0); HEMOGLOBIN 10.2 g/dl (12.0-16.0); MEAN CELL VOLUME 80.3 fL CALC (80.0-100.0); MEAN CORPUSCULAR HGB 24.2 pG CALC (26.0-32.0); MEAN CORPUSCULAR HGB CONC 30.1 g/L CALC (32.0-36.0); NEUT# 21.63 thou/uL (2.00-7.15); RED BLOOD COUNT 4.22 mill/uL (4.20-5.60); RED CELL DISTRI WIDTH 17.1 % (11.5-15.5)
[2019-04-08 05:41] LABS: ALBUMIN 3.7 g/dL (3.2-5.0); ALKALINE PHOSPHATASE 88 u/l (38-126); ANION GAP 10 (6-22 (CALC)); BUN 22 mg/dL (8-23); BUN/CREATININE RATIO 34 (12-20 (CALC)); CARBON DIOXIDE 31 mmol/l (22-30); CHLORIDE 103 mmol/l (95-108); CREATININE 0.6 mg/dL (0.5-1.0); GFR > 60 ML/MIN (>=60 (CALC)); GFR FOR AFR.AMER. > 60 ML/MIN (>=60 (CALC)); MAGNESIUM 2.2 mg/dL (1.6-2.3); POTASSIUM 4.1 mmol/l (3.5-5.1); SGOT/AST 21 u/l (9-36); SODIUM 140 mmol/l (137-146); TOTAL PROTEIN 6.2 g/dL (6.3-8.2)
[2019-04-08 05:45] LABS: BILIRUBIN, TOTAL 0.3 mg/dL (0.0-1.4)
[2019-04-08 08:01] VITALS: BP 158/92
--- NOTE | 2019-04-08 09:13 | NUR ---
REPORT WAS RECEIVED FROM ESTUARDO. ASSESSMENT DONE .PT IS A&O X3. PT STATED BACK PAIN 05/08 BUT DENIES PAIN MEDICATION. TELE IN PLACE. RU PORT FLUSHES WELL AND GOOD BLOOD RETURN. PT DENIES ANY OTHER NEEDS AT THIS TIME. SAFETY PRECAUTIONS REINFORCED AND CALL LIGHT IN REACH.
[2019-04-08 11:15] VITALS: BP 131/73
--- NOTE | 2019-04-08 11:20 | NUR ---
PT TALKING IN HER PHONE WITH NO S/S OF DISTRESS NOTED. CALL LIGHT IN REACH.
[2019-04-08] MEDS ORDERED: LOSARTAN POT50 MG PO (13:52)
[2019-04-08] MEDS ORDERED: ISOSORB MONO30 MG PO (13:52)
[2019-04-08] MEDS ORDERED: ASPIRIN CHEWABL81 MG PO (13:52)
[2019-04-08] MEDS ORDERED: PREDNISONE10 MG PO (13:52)
--- NOTE | 2019-04-08 15:09 | NUR ---
Discharge instructions given. Patient verbalizes understanding of same. Discharged in stable condition via Wheelchair to Home with staff. All belongings sent with pt.
== END 2019-04-08 15:10 | disposition home or self-care (01) ==
LOC: ED 23:00 → ED-I 04-06 02:32 → ED 04-06 02:50 → MS2 04-06 02:51
PROVIDERS: Family Medicine; ADMIT Internal Medicine Nephrology; ATTEND Internal Medicine Nephrology
DX: R07.89 Other chest pain (principal); J44.1 Chronic obstructive pulmonary disease with (acute) exacerbation; J96.02 Acute respiratory failure with hypercapnia; J96.01 Acute respiratory failure with hypoxia; I10 Essential (primary) hypertension; I25.10 Atherosclerotic heart disease of native coronary artery without angina pectoris; F41.8 Other specified anxiety disorders; G89.4 Chronic pain syndrome; E66.9 Obesity, unspecified; G47.33 Obstructive sleep apnea (adult) (pediatric); D72.829 Elevated white blood cell count, unspecified; Z95.5 Presence of coronary angioplasty implant and graft; Z68.34 Body mass index [BMI] 34.0-34.9, adult; Z99.81 Dependence on supplemental oxygen; Z87.891 Personal history of nicotine dependence; Z79.891 Long term (current) use of opiate analgesic
CPT/HCPCS: J1650

== ENCOUNTER 2019-05-12 11:38 | Observation (INO) | payer MEDICARE, MEDICAID ==
[~2019-05-12] VITALS: Ht 172.7 cm; Wt 102.5 kg
[~2019-05-12 11:38] MED LIST changes: +ISOSORB MONO30 MG PO; +LOSARTAN POT50 MG PO
[2019-05-12 12:42] LABS: IMMATURE GRANULOCYTES 0.7 % (0.0-5.0); MEAN CELL VOLUME 78.1 fL CALC (80.0-100.0); MEAN CORPUSCULAR HGB 23.6 pG CALC (26.0-32.0); MEAN CORPUSCULAR HGB CONC 30.2 g/L CALC (32.0-36.0); NEUT# 10.82 thou/uL (2.00-7.15); RED BLOOD COUNT 5.43 mill/uL (4.20-5.60); RED CELL DISTRI WIDTH 17.4 % (11.5-15.5)
[2019-05-12 12:48] LABS: HEMATOCRIT 42.4 % (37.0-47.0); HEMOGLOBIN 12.8 g/dl (12.0-16.0)
[2019-05-12 12:57] LABS: ALKALINE PHOSPHATASE 122 u/l (38-126); ANION GAP 17 (6-22 (CALC)); BUN 13 mg/dL (8-23); BUN/CREATININE RATIO 19 (12-20 (CALC)); CARBON DIOXIDE 27 mmol/l (22-30); CHLORIDE 103 mmol/l (95-108); CREATININE 0.7 mg/dL (0.5-1.0); GFR > 60 ML/MIN (>=60 (CALC)); GFR FOR AFR.AMER. > 60 ML/MIN (>=60 (CALC)); POTASSIUM 3.3 mmol/l (3.5-5.1); SGOT/AST 24 u/l (9-36); SODIUM 144 mmol/l (137-146)
[2019-05-12 13:00] LABS: PROTHROMBIN TIME 10.2 SECONDS (9.0-12.5)
[2019-05-12 13:04] LABS: ALBUMIN 4.8 g/dL (3.2-5.0); BILIRUBIN, TOTAL 0.5 mg/dL (0.0-1.4)
[2019-05-12 13:07] LABS: MYOGLOBIN 40 ng/mL (0 - 62)
[2019-05-12] MEDS ORDERED: BUSPAR10 MG PO (15:01)
[2019-05-12 17:15] VITALS: BP 171/98
[2019-05-12 19:24] VITALS: BP 151/94
[2019-05-13 00:18] VITALS: BP 167/97
[2019-05-13 04:22] VITALS: BP 171/93
[2019-05-13 05:21] LABS: HEMATOCRIT 39.9 % (37.0-47.0); HEMOGLOBIN 12.4 g/dl (12.0-16.0); IMMATURE GRANULOCYTES 0.7 % (0.0-5.0); MEAN CELL VOLUME 78.2 fL CALC (80.0-100.0); MEAN CORPUSCULAR HGB 24.3 pG CALC (26.0-32.0); MEAN CORPUSCULAR HGB CONC 31.1 g/L CALC (32.0-36.0); NEUT# 10.99 thou/uL (2.00-7.15); RED BLOOD COUNT 5.1 mill/uL (4.20-5.60); RED CELL DISTRI WIDTH 17.4 % (11.5-15.5)
[2019-05-13 05:48] LABS: ALBUMIN 4.6 g/dL (3.2-5.0); ALKALINE PHOSPHATASE 117 u/l (38-126); BUN 20 mg/dL (8-23); BUN/CREATININE RATIO 27 (12-20 (CALC)); CARBON DIOXIDE 28 mmol/l (22-30); CHLORIDE 100 mmol/l (95-108); CREATININE 0.7 mg/dL (0.5-1.0); GFR > 60 ML/MIN (>=60 (CALC)); GFR FOR AFR.AMER. > 60 ML/MIN (>=60 (CALC)); MAGNESIUM 2.4 mg/dL (1.6-2.3); SGOT/AST 15 u/l (9-36); SODIUM 141 mmol/l (137-146); TOTAL PROTEIN 7.5 g/dL (6.3-8.2)
[2019-05-13 05:57] LABS: ANION GAP 17 (6-22 (CALC)); BILIRUBIN, TOTAL 0.2 mg/dL (0.0-1.4); POTASSIUM 4.2 mmol/l (3.5-5.1)
[2019-05-13 07:39] VITALS: BP 163/81
[2019-05-13 10:58] VITALS: BP 127/70
[2019-05-13] MEDS ORDERED: MEDDOSEPAK PO (11:56)
[2019-05-13] MEDS ORDERED: AUGMENTIN875TAB PO (11:56)
== END 2019-05-13 14:40 | disposition home health service (06) ==
LOC: ED 11:38 → ED-I 14:56 → ED 15:39 → MS2 15:40
PROVIDERS: Emergency Medicine; ADMIT Internal Medicine Nephrology; ATTEND Internal Medicine Nephrology
PROC: 5A09357 Assistance with Respiratory Ventilation, Less than 24 Consecutive Hours, Continuous Positive Airway Pressure (ICD-10-PCS; principal; 2019-05-12)
DX: J43.9 Emphysema, unspecified (principal); I10 Essential (primary) hypertension; I50.9 Heart failure, unspecified; I25.10 Atherosclerotic heart disease of native coronary artery without angina pectoris; F32.9 Major depressive disorder, single episode, unspecified; G89.4 Chronic pain syndrome; F41.9 Anxiety disorder, unspecified; Z99.81 Dependence on supplemental oxygen; Z87.891 Personal history of nicotine dependence; Z95.5 Presence of coronary angioplasty implant and graft; E03.9 Hypothyroidism, unspecified
CPT/HCPCS: J3475

== ENCOUNTER 2019-05-28 14:39 | Observation (INO) | payer MEDICARE, MEDICAID ==
[~2019-05-28] VITALS: Ht 172.7 cm; Wt 100.7 kg
[~2019-05-28 14:39] MED LIST changes: +AUGMENTIN875TAB PO; +BUSPAR10 MG PO
--- NOTE | 2019-05-28 15:01 | NUR ---
WHEELCHAIR TO ER ROOM 10, TO BED.
--- NOTE | 2019-05-28 15:05 | NUR ---
R CHEST WALL IMPLANTED PORT ACCESSED USING STERILE TECHNIQUE WITH GOOD ASPIRATE NOTED, LAB WORK OBTAINED AND SITE FLUSHED, PT TOLERATED WELL.
[2019-05-28 15:22] LABS: HEMATOCRIT 40.7 % (37.0-47.0); HEMOGLOBIN 12.1 g/dl (12.0-16.0); IMMATURE GRANULOCYTES 0.5 % (0.0-5.0); MEAN CORPUSCULAR HGB 23.8 pG CALC (26.0-32.0); MEAN CORPUSCULAR HGB CONC 29.7 g/L CALC (32.0-36.0); NEUT# 7.87 thou/uL (2.00-7.15); RED BLOOD COUNT 5.09 mill/uL (4.20-5.60); RED CELL DISTRI WIDTH 16.4 % (11.5-15.5)
[2019-05-28 15:45] LABS: ALBUMIN 4.5 g/dL (3.2-5.0); ALKALINE PHOSPHATASE 124 u/l (38-126); ANION GAP 16 (6-22 (CALC)); BUN 18 mg/dL (8-23); BUN/CREATININE RATIO 28 (12-20 (CALC)); CARBON DIOXIDE 29 mmol/l (22-30); CHLORIDE 101 mmol/l (95-108); CREATININE 0.6 mg/dL (0.5-1.0); GFR > 60 ML/MIN (>=60 (CALC)); GFR FOR AFR.AMER. > 60 ML/MIN (>=60 (CALC)); POTASSIUM 4.1 mmol/l (3.5-5.1); SGOT/AST 22 u/l (9-36); SODIUM 141 mmol/l (137-146); TOTAL PROTEIN 7.5 g/dL (6.3-8.2)
[2019-05-28 15:54] LABS: BILIRUBIN, TOTAL 0.5 mg/dL (0.0-1.4)
--- NOTE | 2019-05-28 16:10 | NUR ---
MEDICATED WITH SOLU MEDROL ORDERED AND PT STARTED ON MAG ORDERED, COMPLAINS OF CHECT ACHING, ON PAIN MGMT REGIEMNW TIH MORPHINE PO TID AND OXYCODONE PO TID, STATES SHE HASNT TAKEN ANYTHING SINCE THIS AM BUT THAT SHE IS NOT OUT OF THEM. COMFORT MEASURES PROVIDED, WILL CONTINUE TO MONITOR.
--- NOTE | 2019-05-28 16:23 | NUR ---
PT STATES HER DOCTOR STOPPED HER MORPHINE LAST VISIT, HAD HER OXYCODONE FILLED ON THE OF THIS MONTH.
--- NOTE | 2019-05-28 17:17 | NUR ---
PT NORMALLY WEARS O2 AT 2L VIA NC AT HOME, WHEN ASKED WHY SHE DIDN'T COME IN WITH IT HER RESPONSE IS "I DON'T KNOW" SATS SLOWLY DROPPING TO 84-85 THEN REBOUNDS TO 90. O2 AT 2L PLACED VIA NC AT 2L. WILL MONITOR CLOSELY.
--- NOTE | 2019-05-28 18:15 | NUR ---
CALL TO MED SURG FOR REPORT NURSE TO CALL BACK
--- NOTE | 2019-05-28 18:41 | NUR ---
REPORT CALLED TO GELY CARDONA ON MED SURG, ROOM 272 AND TELE BOX 0566 ASSIGNED
--- NOTE | 2019-05-28 18:50 | NUR ---
PT. ARRIVED TO THE FLOOR VIA W/C ACCOMPANIED BY ER NURSE, SOUTH CAAL. PT. AMBULATORY. ASSISTED INTO BED; NO DISTRESS NOTED; HAND CEMENTER IN AT BEDSIDE TO OBTAIN VS. INSTRUCTED BIRD SITTER LIGHT USE. CALL LIGHT IS IN REACH.
--- NOTE | 2019-05-28 18:50 | NUR ---
TO [facility] VIA W/C POWDER MONKEY C/O.
[2019-05-28 18:56] VITALS: BP 141/62
--- NOTE | 2019-05-28 19:58 | NUR ---
ADMISSION ASSESSMENT COMPLETED; NO RESP. DISRTESS NOTED; C/O CHRONIC BACK PAIN 04/07; MEDICATED WITH ORDERED ROXICODONE; WILL REASSESS. UPDATED ON POC. RIGHT CHEST PORT INTACT AND SL. TELEMETRY IN PLACE. ENCOURAGED TO CALL FOR ANY NEEDS. CALL LIGHT IS IN REACH. WILL CONTINUE TO MONITOR.
--- NOTE | 2019-05-28 20:15 | NUR ---
SPOKE WITH DR. SAEZ AND NOTIFIED HIM OF PT. BEING OFF OF MORPHINE ER FOR 6 DAYS NOW BY HER PHYSICIAN, PER MD HE WANTS THIS PRN ONLY FOR SEVERE PAIN. ALSO NOTIFIED MD THAT UPON ARRIVAL TO ED SHE REPORTS HAVING CP, BUT DENIES ANY NOW. PER MD HE DOES NOT WANT SERIAL TROPONINS ORDERED AT THIS TIME. WILL UPDATE PT. WITH POC.
--- NOTE | 2019-05-28 20:50 | NUR ---
PT. UPDATED ON MORPHINE BEING CHANGED TO PRN FOR SEVERE PAIN ONLY, PER MD, R/T PT. BEING TAKEN OFF THIS MEDICATION BY HER PRIMARY MD FOR ALMOST A WEEK NOW. PT. VERBALIZES UNDERSTANDING. SCHED. LYRICA GIVEN. SNACK PROVIDED. CALL LIGHT IS IN REACH. WILL CONTINUE TO MONITOR.
[2019-05-28 23:42] VITALS: BP 111/68
--- NOTE | 2019-05-28 23:42 | NUR ---
PT. SITTING UP IN BED WITH O2 OFF; SPO2 93-95% ON RA; PT. IS REMINDED THAT SHE USES O2 CONTINUOUS AND TO REAPPLY. VSS. DENIES NEEDS. CALL LIGHT IS IN REACH.
[2019-05-29 00:23] LABS: COCAINE NEGATIVE (NEGATIVE); METHADONE NEGATIVE (NEGATIVE); TETRAHYDROCANNABIONOL NEGATIVE (NEGATIVE)
[2019-05-29 00:24] LABS: BARBITURATES NEGATIVE (NEGATIVE); OXCYCODONE POSITIVE (NEGATIVE); TRICYLIC ANTIDEPRESSANTS NEGATIVE (NEGATIVE)
--- NOTE | 2019-05-29 01:48 | NUR ---
PT. SLEEPING; RE-APPLIED O2 AT THIS TIME. NO DISTRESS NOTED; CALL LIGHT IS IN REACH.
[2019-05-29 03:22] VITALS: BP 148/88
--- NOTE | 2019-05-29 03:22 | NUR ---
PT. C/O BACK PAIN 05/08; MEDICATED WITH ORDERED PRN ROXICODONE; WILL REASSESS; AM LABS DRAWN VIA PORT AND FLUSHED PER PROTOCAL; VSS; ENCOURAGED TO CALL FOR ANY NEEDS. SPO2 95% ON RA; PT. REAPPLIED HER O2. WILL CONTINUE TO MONITOR.
[2019-05-29 03:59] LABS: HEMATOCRIT 37.4 % (37.0-47.0); HEMOGLOBIN 11.4 g/dl (12.0-16.0); IMMATURE GRANULOCYTES 0.7 % (0.0-5.0); MEAN CELL VOLUME 79.1 fL CALC (80.0-100.0); MEAN CORPUSCULAR HGB 24.1 pG CALC (26.0-32.0); MEAN CORPUSCULAR HGB CONC 30.5 g/L CALC (32.0-36.0); NEUT# 8.38 thou/uL (2.00-7.15); RED BLOOD COUNT 4.73 mill/uL (4.20-5.60); RED CELL DISTRI WIDTH 16.3 % (11.5-15.5)
[2019-05-29 04:09] LABS: ALBUMIN 4.5 g/dL (3.2-5.0); ALKALINE PHOSPHATASE 110 u/l (38-126); ANION GAP 16 (6-22 (CALC)); BILIRUBIN, TOTAL 0.3 mg/dL (0.0-1.4); BUN 21 mg/dL (8-23); BUN/CREATININE RATIO 34 (12-20 (CALC)); CARBON DIOXIDE 27 mmol/l (22-30); CHLORIDE 100 mmol/l (95-108); CREATININE 0.6 mg/dL (0.5-1.0); GFR > 60 ML/MIN (>=60 (CALC)); GFR FOR AFR.AMER. > 60 ML/MIN (>=60 (CALC)); MAGNESIUM 2.3 mg/dL (1.6-2.3); POTASSIUM 4.2 mmol/l (3.5-5.1); SGOT/AST 20 u/l (9-36); SODIUM 139 mmol/l (137-146); TOTAL PROTEIN 7.5 g/dL (6.3-8.2)
--- NOTE | 2019-05-29 05:35 | NUR ---
SCHED SOLU-MEDROL GIVEN; BSC EMPTIED; ENCOURAGED TO CALL FOR ANY NEEDS. CALL LIGHT IS IN REACH.
--- NOTE | 2019-05-29 07:30 | NUR ---
RECEIVED PT IN LOW FOWLERS POSITION. AWAKE, ALERT. ASSESSMENT COMPLETE. SEE SHIFT REVIEW FOR COMPLETE ASSESSMENT. PT ON CELL PHONE. STATES SHE WOULD LIKE TO GO HOME TODAY. DENIES ANY NEEDS AT THIS TIME. DISCUSSED PLAN OF CARE.
--- NOTE | 2019-05-29 07:35 | NUR ---
PT SET UP WITH BREAKFAST TRAY, PT LEGS VERY RESTLESS.
[2019-05-29 08:00] VITALS: BP 127/74
--- NOTE | 2019-05-29 09:20 | NUR ---
AM SCHEDULED MED GIVEN. PT ON CELL PHONE. DENIES ANY NEEDS.
[2019-05-29 11:20] VITALS: BP 142/74
--- NOTE | 2019-05-29 11:25 | NUR ---
DR SAEZ IN TO SEE PT. DISCUSSED DISCHDARGE.
[2019-05-29] MEDS ORDERED: MEDDOSEPAK PO (13:11)
--- NOTE | 2019-05-29 14:03 | NUR ---
DISCHARGE INSTRUCTIONS DISCUSSED WITH PATIENT INCLUDING FILLING SCRIPT AND FOLLOW UP WITH INSIGHTS ANALYST INSTRUCTED. PT DENIES ANY QUESTIONS. R SUBCLA. PORT DEACCESSED AND FLUSHED PER PROTOCOL. DRESSING APPLIED.
== END 2019-05-29 14:00 | disposition home or self-care (01) ==
LOC: ED 14:39 → ED-I 17:05 → ED 17:59 → MS2 18:00
PROVIDERS: Emergency Medicine; ADMIT Internal Medicine Nephrology; ATTEND Internal Medicine Nephrology
DX: J43.9 Emphysema, unspecified (principal); I10 Essential (primary) hypertension; I25.10 Atherosclerotic heart disease of native coronary artery without angina pectoris; G89.4 Chronic pain syndrome; F41.8 Other specified anxiety disorders; F17.200 Nicotine dependence, unspecified, uncomplicated; E66.9 Obesity, unspecified; Z99.81 Dependence on supplemental oxygen; Z95.5 Presence of coronary angioplasty implant and graft
CPT/HCPCS: J3475

== ENCOUNTER 2019-06-13 20:17 | Observation (INO) | payer MEDICARE, MEDICAID ==
[~2019-06-13] VITALS: Ht 172.7 cm; Wt 102.1 kg
--- NOTE | 2019-06-13 20:17 | NUR ---
TO ROOM 12 VIA STRETCHER BY EMS. ALERT. TALKATIVE. APPEARS NERVOUS/ANXIOUS
[2019-06-13] MEDS ORDERED: PLAVIX75 MG PO (20:31)
[2019-06-13] MEDS ORDERED: ADVAIR DISK1 IN (20:32)
--- NOTE | 2019-06-13 20:52 | NUR ---
ATTEMPTED TO ACCESS PORT X 2 WITHOUT SUCCESS. ATTEMPTED PERIPHERAL IV WITHOUT SUCCESS.
[2019-06-13 21:01] LABS: HEMATOCRIT 36.7 % (37.0-47.0); IMMATURE GRANULOCYTES 0.5 % (0.0-5.0); MEAN CELL VOLUME 80.8 fL CALC (80.0-100.0); MEAN CORPUSCULAR HGB 24.2 pG CALC (26.0-32.0); NEUT# 6.79 thou/uL (2.00-7.15); RED BLOOD COUNT 4.54 mill/uL (4.20-5.60)
[2019-06-13 21:18] LABS: ALKALINE PHOSPHATASE 99 u/l (38-126); ANION GAP 12 (6-22 (CALC)); BILIRUBIN, TOTAL 0.2 mg/dL (0.0-1.4); BUN 15 mg/dL (8-23); BUN/CREATININE RATIO 18 (12-20 (CALC)); CARBON DIOXIDE 29 mmol/l (22-30); CHLORIDE 107 mmol/l (95-108); CREATININE 0.8 mg/dL (0.5-1.0); GFR > 60 ML/MIN (>=60 (CALC)); GFR FOR AFR.AMER. > 60 ML/MIN (>=60 (CALC)); INTERNATIONAL NORMALIZED RATIO 0.9 RATIO (0.7-1.3); POTASSIUM 4.1 mmol/l (3.5-5.1); PROTHROMBIN TIME 9.8 SECONDS (9.0-12.5); SGOT/AST 16 u/l (9-36); SODIUM 144 mmol/l (137-146)
[2019-06-13 21:31] LABS: MYOGLOBIN 22 ng/mL (0 - 62)
[2019-06-13 22:10] LABS: URINE BILIRUBIN - DIPSTICK NEGATIVE (NEGATIVE); URINE BLOOD DIPSTICK SMALL (NEGATIVE); URINE COLOR YELLOW; URINE GLUCOSE - DIPSTICK NEGATIVE (NEGATIVE); URINE KETONE TRACE mg/dL (NEGATIVE); URINE LEUK ESTERASE NEGATIVE (NEGATIVE); URINE NITRITE - DIPSTICK NEGATIVE (Negative); URINE PROTEIN - DIPSTICK TRACE mg/dL (NEG-TRACE); URINE SPECIFIC GRAVITY 1.025; URINE UROBILINOGEN - DIPSTICK 0.2 E.U./dL (0.2)
[2019-06-13 22:19] LABS: URINE SQUAMOUS EPITHELIAL CELL FEW EPI/hpf (0-FEW); URINE WBC 0-2 WBC/hpf (0-5)
--- NOTE | 2019-06-13 22:42 | NUR ---
Admission Note Report Given to: SOUTH CONTRERAS Transported by: X Wheelchair Stretcher Transported with: X Nurse Transporter X Patent IV O2 X Computed Tomography Technician
[2019-06-13 22:49] VITALS: BP 117/91
--- NOTE | 2019-06-13 22:49 | NUR ---
RECEIVED REPORT FRO NURSE PETTIT, PATIENT TRANSPORTED VIA WHEELCHAIR, ASSISTED IN BED. ORIENTED TO ROOM AND CALL LIGHT SYSTEM.
--- NOTE | 2019-06-13 23:58 | NUR ---
PATIENT STILL C/O MID STERNAL CHEST PAIN, CALLED DR. MACK WITH ORDERS MADE.
[2019-06-14] VITALS (7 sets, daily range): BP systolic 111–159; BP diastolic 68–82
--- NOTE | 2019-06-14 02:00 | NUR ---
PATIENT STATED PAIN RELIEF, CURRENTLY RESTING IN BED EYES CLOSED CALL LIGHT AT REACH.
--- NOTE | 2019-06-14 05:00 | NUR ---
PATIENT APPEARS TO BE SLEEPING WITH EYES CLOSED NO DISCOMFORTS NOTED AT THIS TIME, CALL LIGHT AT REACH.
--- NOTE | 2019-06-14 07:15 | NUR ---
PT REPORT RECIEVED FROM SOUTH CHILEL. PT SLEEPING. NO S/S OF DISTRESS. CALL LIGHT IN REACH. WILL CONTINUE TO MONITOR.
--- NOTE | 2019-06-14 09:09 | NUR ---
PT A/O X3. SPEECH IS CLEAR. RESP EVEN AND UNLABORED. WHEEZES NOTED ANTERIORLY. RT LUNG COARSE POSTERIORLY. TELE IN PLACE. O2 @2L @ BEDSIDE. PT C/O ACHING CHEST PAIN; 6 OUT OF 10 ON PAIN SCALE. MEDICATED W/ 15 MG ROXICODONE PO. REPOSITIONED FOR COMFORT. STRONG RADIAL AND PEDAL PULSES. BOWEL SOUNDS ACTIVE X4. RT SUBCLAVIAN PORT SL. FLUSHED AND PATENT. GOOD BLOOD RETURN. SITE APPEARS HEALTHY. SKIN INTACT. PT DENIES ANY FURTHER NEEDS. POC DISCUSSED. SAFETY PRECAUTIONS IN PLACE. CALL LIGHT IN REACH. WILL CONTINUE TO MONITOR.
--- NOTE | 2019-06-14 12:11 | NUR ---
PT EATING. NO C/O PAIN OR NEEDS. O2 @2L @BEDSIDE. CALL LIGHT IN REACH. WILL CONTINUE TO MONITOR.
--- NOTE | 2019-06-14 15:20 | NUR ---
Pharmacy called to talk to patient by case managment. Went to speak to patient. Discussed patients home medications and current inpatient medications. Pt had question concerning inpatient medications. I answered the questions informing her of the purpose and side effects of medications. Pt stated no further questions or concerns and verbilizes that she will call for pharmacy should she have any more questions.
--- NOTE | 2019-06-14 16:29 | NUR ---
PT LYING IN BED. NO C/O PAIN OR NEEDS. CALL LIGHT IN REACH. WILL CONTINUE TO MONITOR.
--- NOTE | 2019-06-14 19:17 | NUR ---
REPORT RECEIVED FROM DAY NURSE. PT IS IN BED AWAKE, DENIES ANY NEEDS AT THIS TIME. NO S/O DISTRESS NOTED. WILL FOLLOW-UP W/ASSESSMENT AND MEDICATIONS ORDERED. CALL LIGHT AT SIDE AND PT ENCOURAGED TO CALL IF ANY NEEDS ARISE.
--- NOTE | 2019-06-14 21:00 | NUR ---
PT MED W/PM MEDICATIONS AND FOR PAIN REPORTED IN CHEST 06/07. PT REQUESTING NU CRACKERS FOR SNACK/PROVIDED. PT ASSESSED, LUNG SOUNDS HAVE AUDIBLE WHEEZING THROUGHOUT W/AUSCULTATION, SKIN APPEARS INTACT, ABD SOFT NON-TENDER W/ACTIVE BOWEL SOUNDS, REPORTS STOOL TODAY TO BE NORMAL, DENIES PROBLEMS URINATING. NO NOTED EDEMA, PULSES ARE STRONG. NEURO'S APPEAR INTACT. PORT WAS FLUSHED W/NS AND HEP-LOCKED AT THIS TIME. DENIES ANY OTHER NEEDS AT THIS TIME. CALL LIGHT AT SIDE AND PT ENCOURAGED TO CALL.
--- NOTE | 2019-06-14 23:19 | NUR ---
PT CALLED ASKING FOR MORPHINE DOSE. PT STATED THAT HER CHEST HURTS. V/S ASSESSED, BP111/68,HR82. CALLED ED FOR TELEMETRY READING REPORTED TO BE [id number] AT THIS TIME. I EXPLAINED TO THE PT THAT EVERYTHING ON MONITORS AND V/S APPEARED TO BE GOOD AND THAT I WAS UNABLE TO MEDICATE THIS SOON AND THAT I WILL BRING HER THE MORPHINE WHEN ENOUGH TIME FROM ROXYCODONE HAS PASSED. PT VOICED UNDERSTANDING, APPEARS RELAXED, LIGHTS OFF AND TV ON. WILL CONTINUE TO MONITOR AND MEDICATE NEEDS ARISE AND ORDERS ALLOW. CALL LIGHT AT SIDE AND PT REMINDED OF ITS USE.
--- NOTE | 2019-06-15 01:07 | NUR ---
PT MEDICATED FOR PAIN REPORTED 7/10 IN CHEST. PT IS WATCHING TV W/LIGHTS TURNED OUT. NO OTHER S/O DISTRESS NOTED. WILL CONITNUE TO MONITOR.
--- NOTE | 2019-06-15 03:23 | NUR ---
PT IS SLEEPING AT THIS TIME. NO S/O DISTRESS NOTED. CALL LIGHT AT SIDE.
[2019-06-15 04:13] VITALS: BP 142/67
--- NOTE | 2019-06-15 05:00 | NUR ---
PT IS SLEEPING AT THIS TIME, AWOKE TO MY ENTERING ROOM. DENIES ANY NEEDS, CALL LIGHT AT SIDE.
--- NOTE | 2019-06-15 07:05 | NUR ---
REPORT RECEIVED FROM RAVINRN;PT RESTING IN SEMI FOWLERS POSITION;INTRODUCED SELF TO PT AND POC DISCUSSED;RESPIRATIONS EVEN AND UNLABORED,SHALLOW ON O2 @ 2L VIA NC;PT DENIES ANY CURRENT CHEST PAIN AT THIS TIME,PAIN SCALE AND REPORTING EDUCATED;TELE MONITORING IN PLACE;PT ENCOURAGED TO CALL FOR ASSISTANCE IF NEEDED;FALL PRECAUTIONS NOTED WITH BED IN THE LOWEST POSITION AND CALL LIGHT IN REACH;WILL CONTINUE TO MONITOR
--- NOTE | 2019-06-15 08:00 | NUR ---
PT RESTING IN SEMI FOWLERS POSITION WATCHING TV;VS OBTAINED AND ASSESSMENT COMPLETED;PT REPORTS CHEST PAIN HAS DECREASED AT THIS TIME RATING 5/10 ON THE PAIN SCALE, PT DENIES THE NEED FOR PAIN MEDICATION;RESPIRATIONS SHALLOW ON RA, O2 @ 2L AT BEDSIDE CURRENT O2 SAT 94%;ABDOMEN DISTENDED/SOFT ON PALPATION AND ACTIVE IN ALL 4 QUADRANTS;STRONG PEDAL PULSES;SKIN INTACT;RIGHT SUBCLAVIAN PORT FLUSHED AND PATENT WITH GOOD BLOOD RETURN NOTED,SITE APPEARS HEALTHY;TELE MONITORING IN PLACE;PT DENIES ANY ADDITIONAL NEEDS AT THIS TIME AND IS ENCOURAGED TO CALL FOR ASSISTANCE IF NEEDED;FALL PRECAUTIONS IN PLACE WITH BED IN THE LOWEST POSITION AND CALL LIGHT IN REACH;WILL CONTINUE TO MONITOR
[2019-06-15 08:03] VITALS: BP 151/76
--- NOTE | 2019-06-15 09:05 | NUR ---
AT BEDSIDE DISCUSSING POC INCLUDING D/C HOME,PT VERBALIZES UNDERSTANDING.
[2019-06-15] MEDS ORDERED: PREDNISONE10 MG PO (09:10)
[2019-06-15] MEDS ORDERED: ZITHROMAX250 MG PO (09:10)
--- NOTE | 2019-06-15 10:36 | NUR ---
RIGHT CHEST PORT FLUSHED WITH 10ML OF SALINE AND 5CC HEPARIN PER PORT PROTOCOL. DRESSING APPLIED. PT TOLERATED WELL.
[2019-06-15 11:09] VITALS: BP 127/72
--- NOTE | 2019-06-15 11:20 | NUR ---
ALL DISCHARGE INSTRUCTIONS PROVIDED AT THIS TIME, QUESTIONS ANSWERED;PT INSTRUCTED TO TAKE PRESCRIBED PREDNISONE AND ZITHRO DIRECTED.FOLLOW UP WITH PAIN MANAGEMENT AND AVOID SMOKING;PT VERBALIZES UNDERSTANDING OF ALL TEACHINGS;AWAITING MIKE REARDON TO RETURN WITH MEDICATION FOR HOME USAGE;WHEELCHAIR TO BE PROVIDED FOR D/C HOME.
--- NOTE | 2019-06-15 11:46 | NUR ---
Discharge instructions given. Patient verbalizes understanding of same. Discharged in stable condition via Wheelchair to Home with *Other. All belongings sent with pt. Pt transported to [facility] via wheelchair in stable condition accompanied by ramos winslow for d/c home. taxi to transport pt to house.
== END 2019-06-15 11:46 | disposition home or self-care (01) ==
LOC: ED 20:17 → ED-I 21:53 → ED 22:08 → MS2 22:09
PROVIDERS: Emergency Medicine; ADMIT Internal Medicine; ATTEND Internal Medicine
DX: R07.89 Other chest pain (principal); J43.9 Emphysema, unspecified; I10 Essential (primary) hypertension; I25.10 Atherosclerotic heart disease of native coronary artery without angina pectoris; G89.4 Chronic pain syndrome; F32.9 Major depressive disorder, single episode, unspecified; F41.9 Anxiety disorder, unspecified; G47.33 Obstructive sleep apnea (adult) (pediatric); F17.200 Nicotine dependence, unspecified, uncomplicated; Z95.5 Presence of coronary angioplasty implant and graft; Z99.81 Dependence on supplemental oxygen; Z79.891 Long term (current) use of opiate analgesic

== ENCOUNTER 2019-07-06 01:05 | Observation (INO) | payer MEDICARE, MEDICAID ==
[~2019-07-06] VITALS: Ht 172.7 cm; Wt 100.0 kg
[2019-07-06 01:31] LABS: HEMATOCRIT 39.3 % (37.0-47.0); HEMOGLOBIN 11.9 g/dl (12.0-16.0); IMMATURE GRANULOCYTES 0.6 % (0.0-5.0); MEAN CELL VOLUME 80.2 fL CALC (80.0-100.0); MEAN CORPUSCULAR HGB 24.3 pG CALC (26.0-32.0); MEAN CORPUSCULAR HGB CONC 30.3 g/L CALC (32.0-36.0); NEUT# 12.62 thou/uL (2.00-7.15); RED BLOOD COUNT 4.9 mill/uL (4.20-5.60); RED CELL DISTRI WIDTH 17.2 % (11.5-15.5)
[2019-07-06] MEDS ORDERED: LIPITOR80 M1 PO (01:46)
[2019-07-06 01:48] LABS: ALBUMIN 4.5 g/dL (3.2-5.0); ALKALINE PHOSPHATASE 109 u/l (38-126); ANION GAP 12 (6-22 (CALC)); BILIRUBIN, TOTAL 0.3 mg/dL (0.0-1.4); BUN 19 mg/dL (8-23); BUN/CREATININE RATIO 23 (12-20 (CALC)); CARBON DIOXIDE 35 mmol/l (22-30); CHLORIDE 100 mmol/l (95-108); CREATININE 0.8 mg/dL (0.5-1.0); GFR > 60 ML/MIN (>=60 (CALC)); GFR FOR AFR.AMER. > 60 ML/MIN (>=60 (CALC)); SGOT/AST 23 u/l (9-36); SODIUM 144 mmol/l (137-146); TOTAL PROTEIN 7.4 g/dL (6.3-8.2)
[2019-07-06 01:59] LABS: MYOGLOBIN 59 ng/mL (0 - 62)
[2019-07-06 02:43] VITALS: BP 149/103
[2019-07-06 04:05] VITALS: BP 160/93
[2019-07-06 07:39] VITALS: BP 171/94
[2019-07-06 11:08] VITALS: BP 147/77
[2019-07-06 15:34] VITALS: BP 157/74
[2019-07-06 19:14] VITALS: BP 160/82
[2019-07-07 04:46] VITALS: BP 157/84
[2019-07-07 08:00] VITALS: BP 166/89
[2019-07-07 11:08] VITALS: BP 156/71
[2019-07-07 15:26] VITALS: BP 141/84
[2019-07-07 19:36] VITALS: BP 164/95
[2019-07-08 00:31] VITALS: BP 154/81
[2019-07-08 05:41] VITALS: BP 150/89
[2019-07-08 09:24] VITALS: BP 170/110
[2019-07-08 10:13] VITALS: BP 178/89; BP 186/99
[2019-07-08 10:47] LABS: BUN 22 mg/dL (8-23); BUN/CREATININE RATIO 41 (12-20 (CALC)); CARBON DIOXIDE 33 mmol/l (22-30); CHLORIDE 100 mmol/l (95-108); CREATININE 0.6 mg/dL (0.5-1.0); GFR > 60 ML/MIN (>=60 (CALC)); GFR FOR AFR.AMER. > 60 ML/MIN (>=60 (CALC)); SODIUM 138 mmol/l (137-146)
[2019-07-08 10:54] LABS: ANION GAP 10 (6-22 (CALC)); POTASSIUM 5.2 mmol/l (3.5-5.1)
[2019-07-08 11:06] LABS: HEMATOCRIT 38.1 % (37.0-47.0); HEMOGLOBIN 11.5 g/dl (12.0-16.0); MEAN CELL VOLUME 81.4 fL CALC (80.0-100.0); MEAN CORPUSCULAR HGB 24.6 pG CALC (26.0-32.0); MEAN CORPUSCULAR HGB CONC 30.2 g/L CALC (32.0-36.0); RED BLOOD COUNT 4.68 mill/uL (4.20-5.60); RED CELL DISTRI WIDTH 17.5 % (11.5-15.5)
[2019-07-08 11:13] VITALS: BP 166/95
[2019-07-08 12:28] VITALS: BP 159/90
== END 2019-07-08 15:20 | disposition home or self-care (01) ==
LOC: ED 01:05 → ED-I 01:30 → ED 02:24 → MS2 02:25
PROVIDERS: Emergency Medicine; Internal Medicine; ADMIT Internal Medicine; ATTEND Internal Medicine
DX: J43.9 Emphysema, unspecified (principal); E87.6 Hypokalemia; I10 Essential (primary) hypertension; I25.10 Atherosclerotic heart disease of native coronary artery without angina pectoris; G89.4 Chronic pain syndrome; F32.9 Major depressive disorder, single episode, unspecified; F41.9 Anxiety disorder, unspecified; G62.9 Polyneuropathy, unspecified; G47.33 Obstructive sleep apnea (adult) (pediatric); F17.200 Nicotine dependence, unspecified, uncomplicated; Z95.5 Presence of coronary angioplasty implant and graft; Z99.81 Dependence on supplemental oxygen; R07.89 Other chest pain

== ENCOUNTER 2019-07-18 19:13 | Emergency (ER) | payer MEDICARE, MEDICAID ==
[~2019-07-18] VITALS: Ht 172.7 cm; Wt 100.0 kg
[~2019-07-18 19:13] MED LIST changes: +LIPITOR80 M1 PO
[2019-07-18 20:37] LABS: HEMATOCRIT 38.9 % (37.0-47.0); HEMOGLOBIN 12.1 g/dl (12.0-16.0); IMMATURE GRANULOCYTES 0.4 % (0.0-5.0); MEAN CELL VOLUME 81.4 fL CALC (80.0-100.0); MEAN CORPUSCULAR HGB 25.3 pG CALC (26.0-32.0); MEAN CORPUSCULAR HGB CONC 31.1 g/L CALC (32.0-36.0); NEUT# 8.46 thou/uL (2.00-7.15); RED BLOOD COUNT 4.78 mill/uL (4.20-5.60)
[2019-07-18 20:58] LABS: ALKALINE PHOSPHATASE 96 u/l (38-126); BILIRUBIN, TOTAL 0.2 mg/dL (0.0-1.4); BUN 18 mg/dL (8-23); BUN/CREATININE RATIO 20 (12-20 (CALC)); CARBON DIOXIDE 32 mmol/l (22-30); CHLORIDE 105 mmol/l (95-108); CREATININE 0.9 mg/dL (0.5-1.0); GFR > 60 ML/MIN (>=60 (CALC)); GFR FOR AFR.AMER. > 60 ML/MIN (>=60 (CALC)); LIPASE 101 u/l (23-300); SGOT/AST 16 u/l (9-36); SODIUM 143 mmol/l (137-146); TOTAL PROTEIN 7.1 g/dL (6.3-8.2)
[2019-07-18 21:00] LABS: ANION GAP 10 (6-22 (CALC)); POTASSIUM 3.8 mmol/l (3.5-5.1)
[2019-07-18 21:07] LABS: MYOGLOBIN 23 ng/mL (0 - 62)
[2019-07-18 22:54] LABS: URINE BILIRUBIN - DIPSTICK NEGATIVE (NEGATIVE); URINE BLOOD DIPSTICK TRACE-INTACT (NEGATIVE); URINE COLOR YELLOW; URINE GLUCOSE - DIPSTICK NEGATIVE (NEGATIVE); URINE KETONE NEGATIVE (NEGATIVE); URINE LEUK ESTERASE NEGATIVE (NEGATIVE); URINE NITRITE - DIPSTICK NEGATIVE (Negative); URINE PH 6.5 (4.5-8.0); URINE PROTEIN - DIPSTICK NEGATIVE (NEG-TRACE); URINE UROBILINOGEN - DIPSTICK 0.2 E.U./dL (0.2)
[2019-07-18 23:00] VITALS: BP 123/58
[2019-07-18] MEDS ORDERED: ULTRAM50 M1 PO (23:20)
== END 2019-07-19 00:12 | disposition home or self-care (01) ==
LOC: ED 19:13
PROVIDERS: Emergency Medicine
DX: R07.89 Other chest pain (principal); I10 Essential (primary) hypertension; J43.9 Emphysema, unspecified

== ENCOUNTER 2019-09-12 12:25 | Emergency (ER) | payer MEDICARE, MEDICAID ==
[~2019-09-12] VITALS: Ht 172.7 cm; Wt 102.3 kg
[~2019-09-12 12:25] MED LIST changes: -OXYCODONE HCL15 MG PO; +OXYCODONE10 M1 PO; +ULTRAM50 M1 PO
[2019-09-12 13:36] LABS: HEMATOCRIT 31.6 % (37.0-47.0); HEMOGLOBIN 9.5 g/dl (12.0-16.0); IMMATURE GRANULOCYTES 1.2 % (0.0-5.0); MEAN CELL VOLUME 80.6 fL CALC (80.0-100.0); MEAN CORPUSCULAR HGB 24.2 pG CALC (26.0-32.0); MEAN CORPUSCULAR HGB CONC 30.1 g/L CALC (32.0-36.0); NEUT# 12.92 thou/uL (2.00-7.15); RED BLOOD COUNT 3.92 mill/uL (4.20-5.60)
[2019-09-12 13:45] LABS: ANION GAP 10 (6-22 (CALC)); BUN 17 mg/dL (8-23); BUN/CREATININE RATIO 24 (12-20 (CALC)); CARBON DIOXIDE 32 mmol/l (22-30); CHLORIDE 102 mmol/l (95-108); CREATININE 0.7 mg/dL (0.5-1.0); GFR > 60 ML/MIN (>=60 (CALC)); GFR FOR AFR.AMER. > 60 ML/MIN (>=60 (CALC)); POTASSIUM 3.4 mmol/l (3.5-5.1); SODIUM 141 mmol/l (137-146)
[2019-09-12] MEDS ORDERED: ABILIFY10 M1 PO (15:33)
[2019-09-12] MEDS ORDERED: METOPROL TAR25 MG PO (15:35)
[2019-09-12] MEDS ORDERED: KLONOPIN0.5 MG PO (15:35)
[2019-09-12] MEDS ORDERED: ALBUTEROL SUL0.083 % IN (15:35)
[2019-09-12] MEDS ORDERED: MORPHINE SUL30 M3 PO (15:36)
[2019-09-12] MEDS ORDERED: PROAIR RES108 MCG/AC IN (15:38)
[2019-09-12 21:24] VITALS: BP 151/74
== END 2019-09-12 21:22 ==
LOC: ED 12:25 → ED-I 13:00 → ED 21:22
PROVIDERS: Family Medicine
DX: R07.9 Chest pain, unspecified (principal); J43.9 Emphysema, unspecified; I10 Essential (primary) hypertension; I25.2 Old myocardial infarction; Z95.5 Presence of coronary angioplasty implant and graft
CPT/HCPCS: Q9967

== ENCOUNTER 2019-09-29 22:43 | Observation (INO) | payer MEDICARE, MEDICAID ==
[~2019-09-29] VITALS: Ht 172.7 cm; Wt 105.0 kg
[~2019-09-29 22:43] MED LIST changes: +ABILIFY10 M1 PO; +KLONOPIN0.5 MG PO; +PROAIR RES108 MCG/AC IN
[2019-09-29 23:30] LABS: HEMATOCRIT 30.5 % (37.0-47.0); HEMOGLOBIN 9.1 g/dl (12.0-16.0); IMMATURE GRANULOCYTES 0.3 % (0.0-5.0); MEAN CELL VOLUME 81.3 fL CALC (80.0-100.0); MEAN CORPUSCULAR HGB 24.3 pG CALC (26.0-32.0); MEAN CORPUSCULAR HGB CONC 29.8 g/L CALC (32.0-36.0); NEUT# 6.85 thou/uL (2.00-7.15); RED BLOOD COUNT 3.75 mill/uL (4.20-5.60); RED CELL DISTRI WIDTH 14.6 % (11.5-15.5)
[2019-09-29 23:54] LABS: ALBUMIN 3.6 g/dL (3.2-5.0); ALKALINE PHOSPHATASE 91 u/l (38-126); ANION GAP 7 (6-22 (CALC)); BILIRUBIN, TOTAL 0.2 mg/dL (0.0-1.4); BUN 12 mg/dL (8-23); BUN/CREATININE RATIO 14 (12-20 (CALC)); CARBON DIOXIDE 33 mmol/l (22-30); CHLORIDE 106 mmol/l (95-108); CREATININE 0.9 mg/dL (0.5-1.0); GFR > 60 ML/MIN (>=60 (CALC)); GFR FOR AFR.AMER. > 60 ML/MIN (>=60 (CALC)); POTASSIUM 2.9 mmol/l (3.5-5.1); SGOT/AST 20 u/l (9-36); SODIUM 143 mmol/l (137-146); TOTAL PROTEIN 6.8 g/dL (6.3-8.2)
[2019-09-30 00:06] LABS: MYOGLOBIN 26 ng/mL (0 - 62)
[2019-09-30 01:14] VITALS: BP 148/87
[2019-09-30 04:00] VITALS: BP 150/91
[2019-09-30 06:39] VITALS: BP 128/79
[2019-09-30 07:30] VITALS: BP 148/59
[2019-09-30 08:31] LABS: HEMATOCRIT 31.8 % (37.0-47.0); HEMOGLOBIN 9.5 g/dl (12.0-16.0); IMMATURE GRANULOCYTES 0.2 % (0.0-5.0); MEAN CELL VOLUME 81.7 fL CALC (80.0-100.0); MEAN CORPUSCULAR HGB 24.4 pG CALC (26.0-32.0); MEAN CORPUSCULAR HGB CONC 29.9 g/L CALC (32.0-36.0); NEUT# 6.22 thou/uL (2.00-7.15); RED BLOOD COUNT 3.89 mill/uL (4.20-5.60); RED CELL DISTRI WIDTH 14.7 % (11.5-15.5)
[2019-09-30 08:37] LABS: ANION GAP 8 (6-22 (CALC)); BUN 16 mg/dL (8-23); BUN/CREATININE RATIO 19 (12-20 (CALC)); CARBON DIOXIDE 30 mmol/l (22-30); CHLORIDE 107 mmol/l (95-108); CREATININE 0.9 mg/dL (0.5-1.0); GFR > 60 ML/MIN (>=60 (CALC)); GFR FOR AFR.AMER. > 60 ML/MIN (>=60 (CALC)); MAGNESIUM 1.9 mg/dL (1.6-2.3); POTASSIUM 3.2 mmol/l (3.5-5.1); SODIUM 142 mmol/l (137-146)
[2019-09-30 10:52] VITALS: BP 156/92
== END 2019-09-30 13:06 | disposition left against medical advice (07) ==
LOC: ED 22:43 → ED-I 09-30 00:23 → ED 09-30 00:29 → MS2 09-30 00:31
PROVIDERS: Emergency Medicine; Nurse Practitioner Family; ADMIT Internal Medicine; ATTEND Internal Medicine
DX: R07.9 Chest pain, unspecified (principal); D64.9 Anemia, unspecified; E87.6 Hypokalemia; I10 Essential (primary) hypertension; J43.9 Emphysema, unspecified; I25.10 Atherosclerotic heart disease of native coronary artery without angina pectoris; F32.9 Major depressive disorder, single episode, unspecified; J96.10 Chronic respiratory failure, unspecified whether with hypoxia or hypercapnia; G89.4 Chronic pain syndrome; F41.9 Anxiety disorder, unspecified; F17.200 Nicotine dependence, unspecified, uncomplicated; Z95.5 Presence of coronary angioplasty implant and graft; E78.5 Hyperlipidemia, unspecified; Z79.891 Long term (current) use of opiate analgesic

== ENCOUNTER 2019-12-07 16:59 | Emergency (ER) | payer MEDICARE, MEDICAID ==
[2019-12-07 17:10] VITALS: BP 104/53
== END 2019-12-07 20:40 | disposition left against medical advice (07) ==
LOC: ED 16:59 → LWOBS 20:40
DX: Z53.21 Procedure and treatment not carried out due to patient leaving prior to being seen by health care provider (principal)

== ENCOUNTER 2019-12-15 17:16 | Observation (INO) | payer MEDICARE, MEDICAID ==
[~2019-12-15] VITALS: Ht 172.7 cm; Wt 99.9 kg
[2019-12-15 18:12] LABS: HEMATOCRIT 33.6 % (37.0-47.0); HEMOGLOBIN 10.2 g/dl (12.0-16.0); IMMATURE GRANULOCYTES 0.3 % (0.0-5.0); MEAN CORPUSCULAR HGB 23.2 pG CALC (26.0-32.0); MEAN CORPUSCULAR HGB CONC 30.4 g/L CALC (32.0-36.0); NEUT# 8.34 thou/uL (2.00-7.15); RED BLOOD COUNT 4.4 mill/uL (4.20-5.60); RED CELL DISTRI WIDTH 17.1 % (11.5-15.5)
[2019-12-15 18:14] LABS: MEAN CELL VOLUME 76.4 fL CALC (80.0-100.0)
[2019-12-15 18:46] LABS: ALBUMIN 3.6 g/dL (3.2-5.0); ALKALINE PHOSPHATASE 86 u/l (38-126); ANION GAP 11 (6-22 (CALC)); BILIRUBIN, TOTAL 0.2 mg/dL (0.0-1.4); BUN 10 mg/dL (8-23); BUN/CREATININE RATIO 15 (12-20 (CALC)); CARBON DIOXIDE 29 mmol/l (22-30); CHLORIDE 105 mmol/l (95-108); CREATININE 0.7 mg/dL (0.5-1.0); GFR > 60 ML/MIN (>=60 (CALC)); GFR FOR AFR.AMER. > 60 ML/MIN (>=60 (CALC)); LIPASE 56 u/l (23-300); POTASSIUM 3.5 mmol/l (3.5-5.1); SGOT/AST 17 u/l (9-36); SODIUM 141 mmol/l (137-146); TOTAL PROTEIN 6.3 g/dL (6.3-8.2)
[2019-12-15 18:57] LABS: MYOGLOBIN 19 ng/mL (0 - 62)
[2019-12-15 20:54] VITALS: BP 170/90
[2019-12-15 21:41] VITALS: BP 152/86
[2019-12-16 03:54] VITALS: BP 119/70
[2019-12-16 06:07] LABS: HEMATOCRIT 31.6 % (37.0-47.0); HEMOGLOBIN 9.3 g/dl (12.0-16.0); IMMATURE GRANULOCYTES 0.3 % (0.0-5.0); MEAN CELL VOLUME 77.3 fL CALC (80.0-100.0); MEAN CORPUSCULAR HGB 22.7 pG CALC (26.0-32.0); MEAN CORPUSCULAR HGB CONC 29.4 g/L CALC (32.0-36.0); NEUT# 6.42 thou/uL (2.00-7.15); RED BLOOD COUNT 4.09 mill/uL (4.20-5.60); RED CELL DISTRI WIDTH 17.2 % (11.5-15.5)
[2019-12-16 06:20] LABS: ALKALINE PHOSPHATASE 67 u/l (38-126); ANION GAP 8 (6-22 (CALC)); BUN 13 mg/dL (8-23); BUN/CREATININE RATIO 23 (12-20 (CALC)); CARBON DIOXIDE 26 mmol/l (22-30); CHLORIDE 109 mmol/l (95-108); CREATININE 0.6 mg/dL (0.5-1.0); GFR > 60 ML/MIN (>=60 (CALC)); GFR FOR AFR.AMER. > 60 ML/MIN (>=60 (CALC)); HDL CHOLESTEROL 36 mg/dL (>=40); POTASSIUM 3.1 mmol/l (3.5-5.1); SGOT/AST 13 u/l (9-36); SODIUM 140 mmol/l (137-146); TOTAL TRIGLYCERIDES 143 mg/dl (30-149); VLDL CHOLESTROL 29 mg/dl (1-41 (CALC))
[2019-12-16 06:26] LABS: ALBUMIN 2.6 g/dL (3.2-5.0); CALCULATED LDLCHOLESTEROL 73 mg/dL (62-129 (CALC)); CHOLESTEROL HDL RATIO 3.8 (<4.4 (CALC)); TOTAL CHOLESTEROL 138 mg/dl (0-199); TOTAL PROTEIN 4.9 g/dL (6.3-8.2)
[2019-12-16 08:00] VITALS: BP 135/72
[2019-12-16 12:34] LABS: URINE BILIRUBIN - DIPSTICK NEGATIVE (NEGATIVE); URINE BLOOD DIPSTICK NEGATIVE (NEGATIVE); URINE COLOR YELLOW; URINE GLUCOSE - DIPSTICK NEGATIVE (NEGATIVE); URINE KETONE NEGATIVE (NEGATIVE); URINE LEUK ESTERASE NEGATIVE (NEGATIVE); URINE NITRITE - DIPSTICK NEGATIVE (Negative); URINE PROTEIN - DIPSTICK NEGATIVE (NEG-TRACE); URINE SPECIFIC GRAVITY >=1.030; URINE UROBILINOGEN - DIPSTICK 0.2 E.U./dL (0.2)
[2019-12-16 14:58] VITALS: BP 165/94
[2019-12-16 18:45] VITALS: BP 167/86
[2019-12-16 21:03] VITALS: BP 178/75
[2019-12-16 23:53] VITALS: BP 116/72
[2019-12-17 03:22] VITALS: BP 130/87
[2019-12-17 07:40] VITALS: BP 144/82
[2019-12-17] MEDS ORDERED: OXYCODONE10 M1 PO (09:55)
[2019-12-17 11:16] VITALS: BP 124/69
[2019-12-17] MEDS ORDERED: AMLODIPINE BESYL5 MG PO (12:27)
[2019-12-17] MEDS ORDERED: ZOFRAN4 MG/TAB PO (12:27)
[2019-12-17] MEDS ORDERED: CARAFATE1 GM PO (12:27)
== END 2019-12-17 13:00 | disposition home or self-care (01) ==
LOC: ED 17:16 → ED-I 19:49 → ED 20:08 → MS2 20:09
PROVIDERS: ADMIT Internal Medicine; ATTEND Internal Medicine
DX: R07.9 Chest pain, unspecified (principal); R10.30 Lower abdominal pain, unspecified; I10 Essential (primary) hypertension; J43.9 Emphysema, unspecified; J96.10 Chronic respiratory failure, unspecified whether with hypoxia or hypercapnia; I25.10 Atherosclerotic heart disease of native coronary artery without angina pectoris; F32.9 Major depressive disorder, single episode, unspecified; F41.9 Anxiety disorder, unspecified; D64.9 Anemia, unspecified; E87.6 Hypokalemia; G89.4 Chronic pain syndrome; Z95.5 Presence of coronary angioplasty implant and graft; Z79.02 Long term (current) use of antithrombotics/antiplatelets
CPT/HCPCS: G0378

== ENCOUNTER 2020-01-05 19:51 | Observation (INO) | payer MEDICARE, MEDICAID ==
[~2020-01-05] VITALS: Ht 172.7 cm; Wt 104.5 kg
[~2020-01-05 19:51] MED LIST changes: +CARAFATE1 GM PO; +ZOFRAN4 MG/TAB PO
--- NOTE | 2020-01-05 19:51 | NUR ---
PT. TO ROOM 9 VIA EMS WITH C/O MIDSTERNAL CP STARTING AT 1400 TODAY. PT. STATES SHE HAS A PMH OF CAD. PT. SLSO STATES SHE TOOK A ASPIRIN 81 MG AND 2 SL NITRO AT HOME WITHOUT ANY PAIN RELIEF.
[2020-01-05 20:46] LABS: HEMATOCRIT 34.5 % (37.0-47.0); HEMOGLOBIN 10.3 g/dl (12.0-16.0); IMMATURE GRANULOCYTES 0.3 % (0.0-5.0); MEAN CELL VOLUME 75.7 fL CALC (80.0-100.0); MEAN CORPUSCULAR HGB 22.6 pG CALC (26.0-32.0); MEAN CORPUSCULAR HGB CONC 29.9 g/L CALC (32.0-36.0); NEUT# 7.21 thou/uL (2.00-7.15); RED BLOOD COUNT 4.56 mill/uL (4.20-5.60)
--- NOTE | 2020-01-05 20:51 | NUR ---
IV PAIN MED AND IVF GIVEN PER MD ORDER.
[2020-01-05 21:05] LABS: MYOGLOBIN 16 ng/mL (0 - 62)
--- NOTE | 2020-01-05 21:24 | NUR ---
PT. STATES HER CP IS NOW DECREASED TO A 4 ON A SCALE OF 1-10.
[2020-01-05 21:28] LABS: ALKALINE PHOSPHATASE 91 u/l (38-126); ANION GAP 14 (6-22 (CALC)); BUN 18 mg/dL (8-23); BUN/CREATININE RATIO 27 (12-20 (CALC)); CARBON DIOXIDE 24 mmol/l (22-30); CHLORIDE 106 mmol/l (95-108); CREATININE 0.7 mg/dL (0.5-1.0); GFR > 60 ML/MIN (>=60 (CALC)); GFR FOR AFR.AMER. > 60 ML/MIN (>=60 (CALC)); POTASSIUM 3.9 mmol/l (3.5-5.1); SODIUM 140 mmol/l (137-146)
[2020-01-05 21:32] LABS: ALBUMIN 3.7 g/dL (3.2-5.0); BILIRUBIN, TOTAL 0.3 mg/dL (0.0-1.4); SGOT/AST 29 u/l (9-36); TOTAL PROTEIN 6.5 g/dL (6.3-8.2)
--- NOTE | 2020-01-05 22:43 | NUR ---
PT. C/O REOCCURING CP MD AWARE, IV PAIN MED GIVEN PER MD ORDER.
--- NOTE | 2020-01-05 23:00 | NUR ---
MD IN ROOM TO DISCUSS CLINICAL FINDINGS AND TO MAKE PT. AWARE OF ADMISSION, VERBALIZED UNDERSTANDING.
--- NOTE | 2020-01-05 23:43 | NUR ---
PT. AMBULATING TO BR GAIT SLOW AND STEADY, NO C/O AT THIS TIME.
[2020-01-06 00:16] LABS: URINE BILIRUBIN - DIPSTICK NEGATIVE (NEGATIVE); URINE BLOOD DIPSTICK TRACE-LYSED (NEGATIVE); URINE COLOR YELLOW; URINE GLUCOSE - DIPSTICK NEGATIVE (NEGATIVE); URINE KETONE NEGATIVE (NEGATIVE); URINE LEUK ESTERASE NEGATIVE (NEGATIVE); URINE NITRITE - DIPSTICK NEGATIVE (Negative); URINE PROTEIN - DIPSTICK NEGATIVE (NEG-TRACE); URINE UROBILINOGEN - DIPSTICK 0.2 E.U./dL (0.2)
--- NOTE | 2020-01-06 00:33 | NUR ---
PT. STATES HER CP IS NOW DECREASED TO A 4 ON A SCALE OF 1-10.
--- NOTE | 2020-01-06 00:40 | NUR ---
Admission Note Report Given to: NAHEED RN Transported by: Wheelchair X Stretcher Transported with: X Nurse Transporter X Patent IV O2 X Bathhouse Keeper Location: ICU X MS2
--- NOTE | 2020-01-06 00:45 | NUR ---
PT. TAKEN TO CO FLOOR VIA STRETCHER, NO C/O.
[2020-01-06 01:00] VITALS: BP 146/93
--- NOTE | 2020-01-06 01:00 | NUR ---
PT ARRIVED TO THE FLOOR VIA STRETCHER ACCOMPANIED BY ED STAFF. PT ALERT AND ORIENTED, ABULATED FROM STRETCHER TO BED GATE STEADY. VS OBTAINED AND ASSESSMENT COMPLETED. RESPIRATIONS EVEN AND UNLABORED, LUNGS SOUND CLEAR/DIMINISHED. PEDAL PULSES STRONG. PT PROVIDED WITH HEALTHY CHOICE DINNER, PER REQUEST. ORIENTED PT TO ROOM AND CALL OHARA SYSTEM. SAFETY PRECAUTIONS IN PLACE. WILL CONTINUE TO MONITOR.
[2020-01-06 04:00] VITALS: BP 111/70
--- NOTE | 2020-01-06 04:38 | NUR ---
PT RESTING IN BED. NO S/S OF DISTRESS AT THIS TIME. WILL CONTINUE TO MONTIOR.
--- NOTE | 2020-01-06 08:20 | NUR ---
HEAD TO TOE ASSESMENT COMPLETE. A&0X3 NO S/S OF RESP DISTRESS. NO C/O PAIN NOR DISCOMFORT. POSTIVE FOR BOWEL SOUNDS. POC DISCUSSED AND PATIENT VEBALIZED UNDERSTANDING. SKIN INTACT. WILL CONT TO MONITOR
[2020-01-06 11:47] VITALS: BP 141/86
[2020-01-06 15:34] VITALS: BP 140/83
--- NOTE | 2020-01-06 16:17 | NUR ---
DISCHARGE INSTRUCTION GIVEN TO PATIENT AND REVIEWED. PATIENT VERBALIZED UNDERSTANDING. NO SKIN ISSUES NOTED. NO C/O PAIN NOR DISCOMFORT. NO S/S OF RESP. DISTRESS NOTED. PORT DE-ACCESSED IN RIGHT UPPER CHEST
--- NOTE | 2020-01-06 17:21 | NUR ---
CAB PICKED PATIENT UP, NO ISSUES AT TIME OF DEPATURE
== END 2020-01-06 17:22 | disposition home or self-care (01) ==
LOC: ED 19:51 → ED-I 20:53 → ED 23:29 → MS2 23:30
PROVIDERS: Emergency Medicine; ADMIT Internal Medicine; ATTEND Internal Medicine
DX: R07.9 Chest pain, unspecified (principal); I10 Essential (primary) hypertension; J43.9 Emphysema, unspecified; J96.10 Chronic respiratory failure, unspecified whether with hypoxia or hypercapnia; I25.10 Atherosclerotic heart disease of native coronary artery without angina pectoris; F32.9 Major depressive disorder, single episode, unspecified; G89.4 Chronic pain syndrome; F41.9 Anxiety disorder, unspecified; E78.5 Hyperlipidemia, unspecified; Z99.81 Dependence on supplemental oxygen; Z95.5 Presence of coronary angioplasty implant and graft; Z87.891 Personal history of nicotine dependence
CPT/HCPCS: G0378

== ENCOUNTER 2020-01-28 15:04 | Observation (INO) | payer MEDICARE, MEDICAID ==
[~2020-01-28] VITALS: Ht 172.7 cm; Wt 100.7 kg
--- NOTE | 2020-01-28 15:14 | NUR ---
PT TO ROOM PER EMS. ALERT/ORIENTED X3. EMS DID NOT START IV SITE. PT HAS A PORT ON RIGHT SIDE. SHE STATES SHE DID TAKE TWO NITROS BUT WITH NO RELIEF.
[2020-01-28 16:01] LABS: URINE BILIRUBIN - DIPSTICK NEGATIVE (NEGATIVE); URINE BLOOD DIPSTICK NEGATIVE (NEGATIVE); URINE COLOR YELLOW; URINE GLUCOSE - DIPSTICK NEGATIVE (NEGATIVE); URINE KETONE NEGATIVE (NEGATIVE); URINE LEUK ESTERASE NEGATIVE (NEGATIVE); URINE NITRITE - DIPSTICK NEGATIVE (Negative); URINE PROTEIN - DIPSTICK NEGATIVE (NEG-TRACE); URINE UROBILINOGEN - DIPSTICK 0.2 E.U./dL (0.2)
[2020-01-28 16:01] LABS: HEMOGLOBIN 9.5 g/dl (12.0-16.0); IMMATURE GRANULOCYTES 0.7 % (0.0-5.0); MEAN CELL VOLUME 74.9 fL CALC (80.0-100.0); MEAN CORPUSCULAR HGB 22.9 pG CALC (26.0-32.0); MEAN CORPUSCULAR HGB CONC 30.6 g/L CALC (32.0-36.0); NEUT# 10.83 thou/uL (2.00-7.15); RED BLOOD COUNT 4.14 mill/uL (4.20-5.60); RED CELL DISTRI WIDTH 18.7 % (11.5-15.5)
--- NOTE | 2020-01-28 16:02 | NUR ---
PT PRESENTS WITH WEAKNESS IN BOTH LEGS THAT CAUSED HER TO FALL THREE TIMES TODAY. PT STATES HAVING DIZZINESS SINCE 1100 AND TREMORS THAT STARTED NIC. PT CONTINUES TO STATE THAT WEAKNESS IN BOTH LEGS STARTED THIS MORNING. PT ALSO DISCRIBES HAVING STERNAL CHEST PAIN OF 8/10. PT DENIES N/V. NIH OF 0 DONE. ATAXIA DETECTED ON UPPER EXTREMITIES BUT IT WAS CAUSED BY TREMORS OF PREVIOUS CONDITION. PT HAS PORT IN RIGHT UPPER CHEST THAT WAS ACCESSED. PT AOX4 WILL CONTINUE TO MONITOR.
[2020-01-28 16:14] LABS: BARBITURATES NEGATIVE (NEGATIVE); COCAINE NEGATIVE (NEGATIVE); METHADONE NEGATIVE (NEGATIVE); TETRAHYDROCANNABIONOL NEGATIVE (NEGATIVE); TRICYLIC ANTIDEPRESSANTS POSITIVE (NEGATIVE)
[2020-01-28 16:15] LABS: OXCYCODONE POSITIVE (NEGATIVE)
[2020-01-28 16:19] LABS: INTERNATIONAL NORMALIZED RATIO 0.9 RATIO (0.7-1.3); PROTHROMBIN TIME 9.9 SECONDS (9.0-12.5)
[2020-01-28 16:21] LABS: ALKALINE PHOSPHATASE 88 u/l (38-126); BILIRUBIN, TOTAL 0.3 mg/dL (0.0-1.4); BUN 15 mg/dL (8-23); BUN/CREATININE RATIO 18 (12-20 (CALC)); CHLORIDE 103 mmol/l (95-108); CREATININE 0.8 mg/dL (0.5-1.0); ETHYL ALCOHOL 0 mg/dl (0-30); GFR > 60 ML/MIN (>=60 (CALC)); GFR FOR AFR.AMER. > 60 ML/MIN (>=60 (CALC)); LIPASE 38 u/l (23-300); MAGNESIUM 1.9 mg/dL (1.6-2.3); POTASSIUM 4.1 mmol/l (3.5-5.1); SGOT/AST 22 u/l (9-36); SODIUM 141 mmol/l (137-146); TOTAL PROTEIN 6.7 g/dL (6.3-8.2)
[2020-01-28 16:22] LABS: ANION GAP 13 (6-22 (CALC)); CARBON DIOXIDE 29 mmol/l (22-30)
[2020-01-28] MEDS ORDERED: ISOSORB MONO30 MG PO (16:23)
--- NOTE | 2020-01-28 17:13 | NUR ---
PT RESTING ON STRETCHER WATCHING TV DENIES ANY NEEDS
--- NOTE | 2020-01-28 18:06 | NUR ---
PT UPDATED ON PENDING ADMISSION, PT REPOSITIONED AND SHE REQUESTED PO FLUIDS. ALLAN KLEIN
--- NOTE | 2020-01-28 18:38 | NUR ---
ATTEMPTED TO CALL REPORT TO MED SURG NO ANSWER
--- NOTE | 2020-01-28 18:43 | NUR ---
ATTEMPTED TO GIVE REPORT, THEY STATED THAT THEY WILL CALL BACK SOON
--- NOTE | 2020-01-28 19:13 | NUR ---
GAVE REPORT TO RAVIN
--- NOTE | 2020-01-28 19:20 | NUR ---
PT TRANSPORTED TO [facility] STABLE AND IN NO DISTRESS. CARE ASSUMED TO RAVIN. Admission Note Report Given to: Transported by: Wheelchair X Stretcher Transported with: X Nurse Transporter X Patent IV O2 X Personal Computer Network Engineer Location: ICU X MS[facility]
[2020-01-28 19:30] VITALS: BP 157/90
--- NOTE | 2020-01-28 20:05 | NUR ---
PT ASSESSMENT AND ADMISSION COMPLETED AT THIS TIME. PT IS SITTING UPIGHT IN BED EATING SNACK WATCHING TV. PT C/O PAIN 7/10 ON PAIN SCALE TO CHEST/MIDSTERNAL AREA, MEDICATED FOR PAIN. NO SOB OR S/O DISTRESS.
--- NOTE | 2020-01-28 21:40 | NUR ---
PT MEDICATED ORDERS PROVIDE. EATING SANDWICH AT THIS TIME. NO S/O DISTRESS NOTED.
--- NOTE | 2020-01-29 00:25 | NUR ---
PT CALLED TO ASK FOR PAIN MEDICATION STATING THAT SHE DIDN'T THINK THE ROXYCODONE WORKED. WHEN I ASKED WHERE HER PAIN WAS SHE REPORTED BACK AND POINTED TO MID-STERNAL/EPIGASTRIC AREA. I OFFERED NITRO TAB SL, SHE REFUSED STATING "GOD NO, IT WON'T WORK AND IT WILL GIVE ME A HEADACHE." PT IS UPRIGHT ON LEFT SIDE PROPPED UP WATCHING TV AND ASKED FOR ANOTHER SNACK. WILL CONTINUE TO MONITOR AND PROVIDE PAIN MEDICATION ORDER ALLOW, PT HAS PREVIOUSLY BEEN MEDICATED FOR PAIN W/NITRO PASTE AND ROXYCODONE. NO S/O DISTRESS NOTED.
[2020-01-29 00:40] VITALS: BP 133/84
--- NOTE | 2020-01-29 01:30 | NUR ---
PT MEDICATED FOR PAIN 06/07. WHEN I ENTERED THE ROOM PT WAS PROPPED UP WATCHING TV. DENIES ANY OTHER NEEDS.
[2020-01-29 04:03] VITALS: BP 124/87
--- NOTE | 2020-01-29 06:35 | NUR ---
LABS DRAWN FROM PORT ACCESS AND SITE FLUSHED.
[2020-01-29 07:07] LABS: HEMATOCRIT 29.6 % (37.0-47.0); IMMATURE GRANULOCYTES 0.4 % (0.0-5.0); MEAN CELL VOLUME 75.3 fL CALC (80.0-100.0); MEAN CORPUSCULAR HGB 22.9 pG CALC (26.0-32.0); MEAN CORPUSCULAR HGB CONC 30.4 g/L CALC (32.0-36.0); NEUT# 7.57 thou/uL (2.00-7.15); RED BLOOD COUNT 3.93 mill/uL (4.20-5.60); RED CELL DISTRI WIDTH 18.7 % (11.5-15.5)
[2020-01-29 07:10] LABS: ALBUMIN 3.4 g/dL (3.2-5.0); ALKALINE PHOSPHATASE 79 u/l (38-126); ANION GAP 7 (6-22 (CALC)); BILIRUBIN, TOTAL 0.4 mg/dL (0.0-1.4); BUN 15 mg/dL (8-23); BUN/CREATININE RATIO 18 (12-20 (CALC)); CARBON DIOXIDE 31 mmol/l (22-30); CHLORIDE 102 mmol/l (95-108); CREATININE 0.9 mg/dL (0.5-1.0); GFR > 60 ML/MIN (>=60 (CALC)); GFR FOR AFR.AMER. > 60 ML/MIN (>=60 (CALC)); POTASSIUM 3.6 mmol/l (3.5-5.1); SGOT/AST 24 u/l (9-36); SODIUM 137 mmol/l (137-146); TOTAL PROTEIN 6.1 g/dL (6.3-8.2)
[2020-01-29 07:50] VITALS: BP 156/83
--- NOTE | 2020-01-29 07:50 | NUR ---
ASSESSMENT IS COMPLETED:IV SITE IS FREE FROM REDNESS OR EDEMA. HR IS REG,PULSES ARE STRONG X4, ABD IS SOFT WITH ACTIVE BS. BREATH SOUNDS ARE CLEAR BILATERALLY, NO C/O SOB. PT HAS "TWITCHES ON LOWER EXTREMTIES" TELE MONTIOR IN PLACE CONTINUE TO OSBERVE AND MONITOR.
--- NOTE | 2020-01-29 09:00 | NUR ---
INQUIRED WITH PT RE: HOME MEDICATIONS "ABILIFY, AND RANAX" IF FAMILY COULD BRING IN SHE WILL CHECK WITH THEM
[2020-01-29 11:00] VITALS: BP 155/60
--- NOTE | 2020-01-29 11:05 | NUR ---
RIGHT SUBCLAVIAN PORT DEACCESSED FOR DISCHARGE. PT TOLERATED WELL. SEAN AND TEGADERM APPLIED TO SITE.
--- NOTE | 2020-01-29 11:13 | NUR ---
PT LEAVING WITH STAFF FOR DISCHARGE INSTRUCTIONS GIVEN. IV SITE DISCONTINUED BY JASMINE DIA. PT TOLERATED WELL. CONTINUE TO OBSERVE AND MONTIOR Discharge instructions given. Patient verbalizes understanding of same. Discharged in stable condition via Wheelchair to Home with family. All belongings sent with pt.
== END 2020-01-29 11:14 | disposition home or self-care (01) ==
LOC: ED 15:04 → ED-I 15:34 → ED 17:19 → MS2 17:20
PROVIDERS: ADMIT Internal Medicine; ATTEND Internal Medicine
DX: R53.1 Weakness (principal); R07.9 Chest pain, unspecified; I10 Essential (primary) hypertension; I25.10 Atherosclerotic heart disease of native coronary artery without angina pectoris; J43.9 Emphysema, unspecified; F32.9 Major depressive disorder, single episode, unspecified; G47.33 Obstructive sleep apnea (adult) (pediatric); G89.4 Chronic pain syndrome; J96.10 Chronic respiratory failure, unspecified whether with hypoxia or hypercapnia; Z99.81 Dependence on supplemental oxygen; Z87.891 Personal history of nicotine dependence; Z95.5 Presence of coronary angioplasty implant and graft; Z91.81 History of falling
CPT/HCPCS: G0378; J1650

== ENCOUNTER 2020-02-11 | Emergency (ER) | payer MEDICARE, MEDICAID ==
--- NOTE | 2020-02-12 00:02 | NUR ---
BREATHING TREATMENT GIVEN FOR WHEEZING. BREATHING TECH. FOR GOOD DEPOSITION TO THE LUNGS.
[2020-02-12 01:10] LABS: HEMOGLOBIN 9.8 g/dl (12.0-16.0); RED BLOOD COUNT 4.24 mill/uL (4.20-5.60)
[2020-02-12 01:11] LABS: BASO% 0 % (0-3); EOS% 3 % (0-8); HEMATOCRIT 33.4 % (37.0-47.0); LYMPH% 27 % (15-41); MEAN CELL VOLUME 78.8 fL CALC (80.0-100.0); MEAN CORPUSCULAR HGB 23.1 pG CALC (26.0-32.0); MEAN CORPUSCULAR HGB CONC 29.3 g/L CALC (32.0-36.0); MONO% 7 % (2-13); NEUT% 63 % (42-76); PLATELET COUNT 372 thou/uL (130-400)
[2020-02-12 01:14] LABS: INTERNATIONAL NORMALIZED RATIO 0.9 RATIO (0.7-1.3); PROTHROMBIN TIME 9.5 SECONDS (9.0-12.5)
[2020-02-12 01:24] LABS: ALKALINE PHOSPHATASE 92 u/l (38-126); AMYLASE 99 u/l (30-110); BUN 20 mg/dL (8-23); BUN/CREATININE RATIO 21 (12-20 (CALC)); CARBON DIOXIDE 32 mmol/l (22-30); CHLORIDE 106 mmol/l (95-108); GFR 56 ML/MIN (>=60 (CALC)); GFR FOR AFR.AMER. > 60 ML/MIN (>=60 (CALC)); LIPASE 63 u/l (23-300); POTASSIUM 3.5 mmol/l (3.5-5.1); SGOT/AST 24 u/l (9-36)
[2020-02-12 01:25] LABS: ALBUMIN 4.2 g/dL (3.2-5.0); ANION GAP 10 (6-22 (CALC)); BILIRUBIN, TOTAL 0.2 mg/dL (0.0-1.4); SODIUM 144 mmol/l (137-146); TOTAL PROTEIN 7.4 g/dL (6.3-8.2)
[2020-02-12 01:37] LABS: MYOGLOBIN 21 ng/mL (0 - 62)
== END 2020-02-12 07:50 | disposition home or self-care (01) ==
PROVIDERS: Emergency Medicine
DX: R07.9 Chest pain, unspecified (principal); I10 Essential (primary) hypertension; I25.10 Atherosclerotic heart disease of native coronary artery without angina pectoris; J44.9 Chronic obstructive pulmonary disease, unspecified; Z95.5 Presence of coronary angioplasty implant and graft

== ENCOUNTER 2020-02-22 15:49 | Observation (INO) | payer MEDICARE, MEDICAID ==
[~2020-02-22] VITALS: Ht 172.7 cm; Wt 99.6 kg
--- NOTE | 2020-02-22 16:03 | NUR ---
PT TO ROOM FOR EXAM
--- NOTE | 2020-02-22 17:00 | NUR ---
PT C/O CONTINUED CP AT THIS TIME; MEDICATED PER MAR FOR CP RATING 8 OUT OF 10; WILL CONTINUE TO MONITOR
[2020-02-22 17:28] LABS: HEMATOCRIT 32.8 % (37.0-47.0); HEMOGLOBIN 9.5 g/dl (12.0-16.0); IMMATURE GRANULOCYTES 0.7 % (0.0-5.0); MEAN CELL VOLUME 76.1 fL CALC (80.0-100.0); NEUT# 9.26 thou/uL (2.00-7.15); RED BLOOD COUNT 4.31 mill/uL (4.20-5.60); RED CELL DISTRI WIDTH 17.4 % (11.5-15.5)
[2020-02-22 17:42] LABS: ANION GAP 13 (6-22 (CALC)); BUN 19 mg/dL (8-23); BUN/CREATININE RATIO 28 (12-20 (CALC)); CARBON DIOXIDE 26 mmol/l (22-30); CHLORIDE 107 mmol/l (95-108); CREATININE 0.7 mg/dL (0.5-1.0); GFR > 60 ML/MIN (>=60 (CALC)); GFR FOR AFR.AMER. > 60 ML/MIN (>=60 (CALC)); POTASSIUM 3.4 mmol/l (3.5-5.1); SODIUM 142 mmol/l (137-146)
--- NOTE | 2020-02-22 17:56 | NUR ---
PT C/O CONTINUED CP; VSS; DR ARRIAZA NOTIFIED; WILL CONTINUE TO MONITOR
[2020-02-22] MEDS ORDERED: AMLODIPINE BESY10 MG PO (18:23)
[2020-02-22] MEDS ORDERED: BUSPAR5 M1 PO (18:26)
--- NOTE | 2020-02-22 18:27 | NUR ---
PT MEDICATED PER MAR FOR CHEST PAIN RATING 8 OUT OF 10; VSS; PT ADVISED OF CONTINUED WAIT TIME
--- NOTE | 2020-02-22 18:46 | NUR ---
REPORT TO SOUTH CAAL
--- NOTE | 2020-02-22 19:00 | NUR ---
IN ROOM INTRODUCED SELF TO PT. NO C/O PAIN ORDISCOMFORT OFFERED, V/S STABLE.
--- NOTE | 2020-02-22 19:37 | NUR ---
X-RAY TECH INFORMED PT. THAT THEY COULD NOT PUSH IV CONTRAST BECAUSE PT. PORT WAS NOT ACCESSED WITH A POWER PORT. THEY SAID PT. WAS GOING TO HAVE CURRENT PORT ACCESS REMOVED AND POWER PORT INSERTED. PT. REFUSED STATING , I DON'T WANT THE X-RAY."
--- NOTE | 2020-02-22 20:19 | NUR ---
IV PAIN MED GIVEN PER MD ORDER.
--- NOTE | 2020-02-22 20:33 | NUR ---
MADE AWARE PT. BP 176/85.
--- NOTE | 2020-02-22 21:09 | NUR ---
LABETALOL GIVEN FOR ELEVATED BP PER MD ORDER.
--- NOTE | 2020-02-22 21:16 | NUR ---
Admission Note Report Given to: BINH DIA Transported by: Wheelchair X Stretcher Transported with: X Nurse Transporter X Patent IV O2 X Foam Machine Operator Location: ICU X MS2
--- NOTE | 2020-02-22 21:18 | NUR ---
PT. TAKEN TO CA FLOOR VIA STRETCHER, NO C/O.
[2020-02-22 21:30] VITALS: BP 154/93
[2020-02-22 21:50] VITALS: BP 154/93
--- NOTE | 2020-02-22 22:23 | NUR ---
- PT. ARRIVED TO THE FLOOR VIA STRETCHER ACCOMPANIED BY ER NURSE, SOUTH CAAL. PT. IS WEARING A SURGICAL MASK. PT. ORIENTED TO CALL LIGHT, ROOM, AND POC; VERBALIZES UNDERSTANDING. PT. REPORTS SHE IS HAVING CP ALONG WITH BACK AND NECK PAIN AND REPORTS TAKING OXYCODONE HCL 15MG AT HOME AND WOULD LIKE THAT CONTINUED HERE. NOTIFIED DR. DELUNA OF THIS AND HAD ER PHYSICIAN DO AN E-FORCE TO VERIFY HOME MEDICATION. NEW ORDERS RECEIVED. WILL UPDATE PT. RIGHT CHEST PORT IN PLACE AND GIVES BLOOD RETURN AND FLUSHED WITH NS. TELEMETRY IN PLACE. PT. DENIES ANY FURTHER NEEDS. CALL LIGHT IS IN REACH. SNACK PROVIDED. WILL CONTINUE TO MONITOR.
[2020-02-22 23:31] VITALS: BP 145/83
--- NOTE | 2020-02-22 23:31 | NUR ---
PT. RESTING IN BED ON PHONE. VSS. NO DISTRESS NOTED. PROVIDED WITH SNACK PER REQUEST AND ORDERED TROPONIN DRAWN VIA PORT AND FLUSHED. CALL LIGHT IS IN REACH.
--- NOTE | 2020-02-23 04:00 | NUR ---
RESTING IN BED WITH NO DISTRESS NOTED; DENIES NEEDS. CALL LIGHT IS IN REACH.
[2020-02-23 04:56] VITALS: BP 156/96
[2020-02-23 05:31] LABS: HEMATOCRIT 29.6 % (37.0-47.0); HEMOGLOBIN 8.6 g/dl (12.0-16.0); IMMATURE GRANULOCYTES 0.5 % (0.0-5.0); MEAN CELL VOLUME 76.9 fL CALC (80.0-100.0); MEAN CORPUSCULAR HGB 22.3 pG CALC (26.0-32.0); MEAN CORPUSCULAR HGB CONC 29.1 g/dL CAL (32.0-36.0); NEUT# 9.1 thou/uL (2.00-7.15); RED BLOOD COUNT 3.85 mill/uL (4.20-5.60); RED CELL DISTRI WIDTH 17.6 % (11.5-15.5)
[2020-02-23 05:42] LABS: ALBUMIN 3.7 g/dL (3.2-5.0); ALKALINE PHOSPHATASE 96 u/l (38-126); ANION GAP 11 (6-22 (CALC)); BUN 17 mg/dL (8-23); BUN/CREATININE RATIO 26 (12-20 (CALC)); CARBON DIOXIDE 28 mmol/l (22-30); CHLORIDE 105 mmol/l (95-108); CREATININE 0.7 mg/dL (0.5-1.0); GFR > 60 ML/MIN (>=60 (CALC)); GFR FOR AFR.AMER. > 60 ML/MIN (>=60 (CALC)); POTASSIUM 3.2 mmol/l (3.5-5.1); SGOT/AST 20 u/l (9-36); SODIUM 141 mmol/l (137-146); TOTAL PROTEIN 6.4 g/dL (6.3-8.2)
[2020-02-23 05:43] LABS: BILIRUBIN, TOTAL 0.3 mg/dL (0.0-1.4)
--- NOTE | 2020-02-23 07:00 | NUR ---
SHIFT CHANGE REPORT, PT SLEEPING BUT AROUSES TO VERBAL STIMULI, ORIENTED, O2 @ 2L VIA NC IN PLACE, TELE MONITOR IN PLACE, CALL OHARA IN REACH.
[2020-02-23 08:13] VITALS: BP 145/85
[2020-02-23 10:40] VITALS: BP 124/72
--- NOTE | 2020-02-23 13:07 | NUR ---
Discharge instructions given. Patient verbalizes understanding of same. Discharged in stable condition via Wheelchair to Home with family. All belongings sent with pt.
== END 2020-02-23 13:07 | disposition home or self-care (01) ==
LOC: ED 15:49 → ED-I 19:41 → ED 19:54 → MS2 19:55
PROVIDERS: Family Medicine; ADMIT Internal Medicine; ATTEND Internal Medicine
DX: R07.9 Chest pain, unspecified (principal); T14.8XXA Other injury of unspecified body region, initial encounter; I10 Essential (primary) hypertension; I25.10 Atherosclerotic heart disease of native coronary artery without angina pectoris; J43.9 Emphysema, unspecified; G89.4 Chronic pain syndrome; J96.10 Chronic respiratory failure, unspecified whether with hypoxia or hypercapnia; F32.9 Major depressive disorder, single episode, unspecified; W57.XXXA Bitten or stung by nonvenomous insect and other nonvenomous arthropods, initial encounter; Z87.891 Personal history of nicotine dependence; Z99.81 Dependence on supplemental oxygen; Z95.5 Presence of coronary angioplasty implant and graft
CPT/HCPCS: G0378

== ENCOUNTER 2020-03-10 | Emergency (ER) | payer MEDICARE, MEDICAID ==
[~2020-03-10] MED LIST changes: +AMLODIPINE BESY10 MG PO; +BUSPAR5 M1 PO
[2020-03-10 23:14] LABS: HEMATOCRIT 26.8 % (37.0-47.0); HEMOGLOBIN 8.1 g/dl (12.0-16.0); IMMATURE GRANULOCYTES 0.7 % (0.0-5.0); MEAN CELL VOLUME 74.4 fL CALC (80.0-100.0); MEAN CORPUSCULAR HGB 22.5 pG CALC (26.0-32.0); MEAN CORPUSCULAR HGB CONC 30.2 g/dL CAL (32.0-36.0); NEUT# 10.48 thou/uL (2.00-7.15); RED BLOOD COUNT 3.6 mill/uL (4.20-5.60); RED CELL DISTRI WIDTH 17.4 % (11.5-15.5)
[2020-03-10 23:30] LABS: ALBUMIN 3.7 g/dL (3.2-5.0); ALKALINE PHOSPHATASE 96 u/l (38-126); AMYLASE 48 u/l (30-110); BUN 16 mg/dL (8-23); BUN/CREATININE RATIO 20 (12-20 (CALC)); CARBON DIOXIDE 31 mmol/l (22-30); CHLORIDE 105 mmol/l (95-108); CREATININE 0.8 mg/dL (0.5-1.0); GFR > 60 ML/MIN (>=60 (CALC)); GFR FOR AFR.AMER. > 60 ML/MIN (>=60 (CALC)); LIPASE 40 u/l (23-300); SGOT/AST 18 u/l (9-36); SODIUM 140 mmol/l (137-146); TOTAL PROTEIN 6.7 g/dL (6.3-8.2)
[2020-03-10 23:31] LABS: ANION GAP 8 (6-22 (CALC)); BILIRUBIN, TOTAL 0.1 mg/dL (0.0-1.4); POTASSIUM 4.1 mmol/l (3.5-5.1)
[2020-03-10 23:42] LABS: MYOGLOBIN 46 ng/mL (0 - 62)
[2020-03-10] MEDS ORDERED: FERR SULFATE325 MG PO (23:57)
== END 2020-03-11 00:06 | disposition home or self-care (01) ==
PROVIDERS: Family Medicine
DX: R07.9 Chest pain, unspecified (principal); J44.1 Chronic obstructive pulmonary disease with (acute) exacerbation; D64.9 Anemia, unspecified; I10 Essential (primary) hypertension; Z95.5 Presence of coronary angioplasty implant and graft

== ENCOUNTER 2020-04-15 21:02 | Emergency (ER) | payer MEDICARE, MEDICAID ==
[~2020-04-15 21:02] MED LIST changes: +FERR SULFATE325 MG PO
[2020-04-15 22:21] LABS: HEMATOCRIT 31.6 % (37.0-47.0); HEMOGLOBIN 9.5 g/dl (12.0-16.0); IMMATURE GRANULOCYTES 0.3 % (0.0-5.0); MEAN CORPUSCULAR HGB 21.9 pG CALC (26.0-32.0); MEAN CORPUSCULAR HGB CONC 30.1 g/dL CAL (32.0-36.0); NEUT# 6.53 thou/uL (2.00-7.15); RED BLOOD COUNT 4.33 mill/uL (4.20-5.60); RED CELL DISTRI WIDTH 16.7 % (11.5-15.5)
[2020-04-15 22:37] LABS: INTERNATIONAL NORMALIZED RATIO 0.9 RATIO (0.7-1.3); PROTHROMBIN TIME 9.4 SECONDS (9.0-12.5)
[2020-04-15 22:40] LABS: ALBUMIN 3.9 g/dL (3.2-5.0); ALKALINE PHOSPHATASE 102 u/l (38-126); AMYLASE 57 u/l (30-110); ANION GAP 8 (6-22 (CALC)); BUN 15 mg/dL (8-23); BUN/CREATININE RATIO 17 (12-20 (CALC)); CARBON DIOXIDE 30 mmol/l (22-30); CHLORIDE 106 mmol/l (95-108); CREATININE 0.9 mg/dL (0.5-1.0); GFR > 60 ML/MIN (>=60 (CALC)); GFR FOR AFR.AMER. > 60 ML/MIN (>=60 (CALC)); LIPASE 98 u/l (23-300); POTASSIUM 3.8 mmol/l (3.5-5.1); SGOT/AST 17 u/l (9-36); SODIUM 140 mmol/l (137-146); TOTAL PROTEIN 6.6 g/dL (6.3-8.2)
[2020-04-15 22:44] LABS: BILIRUBIN, TOTAL 0.2 mg/dL (0.0-1.4)
[2020-04-15 22:52] LABS: MYOGLOBIN 23 ng/mL (0 - 62)
[2020-04-16] MEDS ORDERED: ULTRAM50 M1 PO (01:21)
[2020-04-16 06:12] VITALS: BP 141/74
== END 2020-04-16 06:14 | disposition home or self-care (01) ==
LOC: ED 21:02
PROVIDERS: Emergency Medicine
DX: R07.9 Chest pain, unspecified (principal); I10 Essential (primary) hypertension; J44.9 Chronic obstructive pulmonary disease, unspecified; Z95.5 Presence of coronary angioplasty implant and graft; R06.02 Shortness of breath

== ENCOUNTER 2020-05-09 18:36 | Observation (INO) | payer MEDICARE, MEDICAID ==
[~2020-05-09] VITALS: Ht 172.7 cm; Wt 99.6 kg
--- NOTE | 2020-05-09 18:45 | NUR ---
BY EMS TO ROOM
[2020-05-09 19:56] LABS: HEMATOCRIT 29.2 % (37.0-47.0); HEMOGLOBIN 8.7 g/dl (12.0-16.0); IMMATURE GRANULOCYTES 0.3 % (0.0-5.0); MEAN CELL VOLUME 73.4 fL CALC (80.0-100.0); MEAN CORPUSCULAR HGB 21.9 pG CALC (26.0-32.0); MEAN CORPUSCULAR HGB CONC 29.8 g/dL CAL (32.0-36.0); NEUT# 4.71 thou/uL (2.00-7.15); RED BLOOD COUNT 3.98 mill/uL (4.20-5.60); RED CELL DISTRI WIDTH 16.9 % (11.5-15.5)
[2020-05-09 20:09] LABS: ALBUMIN 3.7 g/dL (3.2-5.0); ALKALINE PHOSPHATASE 88 u/l (38-126); AMYLASE 67 u/l (30-110); ANION GAP 8 (6-22 (CALC)); BUN 15 mg/dL (8-23); BUN/CREATININE RATIO 17 (12-20 (CALC)); CARBON DIOXIDE 32 mmol/l (22-30); CHLORIDE 101 mmol/l (95-108); CREATININE 0.9 mg/dL (0.5-1.0); GFR > 60 ML/MIN (>=60 (CALC)); GFR FOR AFR.AMER. > 60 ML/MIN (>=60 (CALC)); LIPASE 43 u/l (23-300); SGOT/AST 29 u/l (9-36); SODIUM 137 mmol/l (137-146); TOTAL PROTEIN 6.9 g/dL (6.3-8.2)
[2020-05-09 20:11] LABS: BILIRUBIN, TOTAL 0.3 mg/dL (0.0-1.4)
[2020-05-09 20:16] LABS: ACT PARTIAL THROMBO TIME 27.4 SECONDS (20.0-32.5)
[2020-05-09 20:22] LABS: MYOGLOBIN 24 ng/mL (0 - 62)
--- NOTE | 2020-05-09 22:00 | NUR ---
NO CHANGE IN EXAM
--- NOTE | 2020-05-10 01:30 | NUR ---
Admission Note Report Given to: SOUTH ALICIA Transported by: Wheelchair X Stretcher Transported with: X Nurse Transporter X Patent IV O2 X Fisher Clam Location: ICU X MS2
[2020-05-10 01:35] VITALS: BP 132/88
--- NOTE | 2020-05-10 01:35 | NUR ---
PT ARRIVED TO THE MED SURG UNIT VIA STRETCHER ACCOMPANIED BY [facility]VER ED NURSE. PT APPEARS TO BE IN STABLE CONDITION. PT REPORTS HAVING CHEST PAIN 7/10 UPON ARRIVING TO NURSES STATION. PT HAS NOT RECEIVED NITRO PASTE PREVIOUSLY ORDERED IN ED. WILL FOLLOW-UP W/ADMINISTRATION ONCE PT GETS TO THE ROOM. NO S/O DISTRESS NOTED.
--- NOTE | 2020-05-10 01:50 | NUR ---
PT ASKING FOR FOOD AND REPORTS PAIN 7/10, NITRO-PASTE APPLIED AT THIS TIME. PT REPORTS HAVING HAD COUGH FOR 3 DAYS. DENIES SOB/N/V/D. PT ASSESSMENT COMPLETED, WHEEZING LUNG SOUNDS THROUGHOUT. LOCX4. URINE COLLECTED AT THIS TIME AND DELIVERED TO LAB. PT ORIENTED TO CALL SYSTEM, LIGHTS, BED AND TV. PT LEFT SITTING IN BED WATCHING TV.
--- NOTE | 2020-05-10 03:10 | NUR ---
PT C/O CHEST PAIN, STATING "THAT PATCH IS NOT WORKING." ED PHYSICIAN NOTIFIED, NEW ORDERS RECEIVED.
[2020-05-10 03:18] LABS: URINE BILIRUBIN - DIPSTICK NEGATIVE (NEGATIVE); URINE BLOOD DIPSTICK NEGATIVE (NEGATIVE); URINE CLARITY CLEAR; URINE COLOR YELLOW; URINE GLUCOSE - DIPSTICK NEGATIVE (NEGATIVE); URINE KETONE NEGATIVE (NEGATIVE); URINE LEUK ESTERASE NEGATIVE (Negative); URINE NITRITE - DIPSTICK NEGATIVE (Negative); URINE PH 7.5 (4.5-8.0); URINE PROTEIN - DIPSTICK NEGATIVE (NEG-TRACE); URINE UROBILINOGEN - DIPSTICK 0.2 E.U./dL (0.2)
[2020-05-10 03:25] VITALS: BP 119/78
--- NOTE | 2020-05-10 04:55 | NUR ---
PT MEDICATED FOR PAIN 8/10 ON PAIN SCALE. PT IS IN BED WATCHING TV. NO S/O DISTRESS NOTED.
--- NOTE | 2020-05-10 07:30 | NUR ---
REPORT RECEIVED FROM SOUTH ALICIA. PT RESTING IN BED SEMI FOWLERS; ALERT AND OREINTED. C/O 5/10 MIDSTERNAL CP. RESPIRATIONS EVEN AND UNLABORED ON ROOM AIR. PT DENIES SOB OR NAUSEA. NITRO PASTE REMOVED FOR C/O HEADACHE. VSS. TELE ON. RIGHT SUBCLAVIAN PORT FLUSHED AND TROPONIN OBTAINED AND SENT TO LAB. PLAN OF CARE REVIEWED. PT ENCOURAGED TO VERBALIZE CONCERNS. STATES UNDERSTANDING. SAFETY MEASURES IN PLACE. CALL LIGHT WITHIN REACH.
--- NOTE | 2020-05-10 08:52 | NUR ---
TRAMADOL GIVEN WITH AM MEDS FOR MIDSTERNAL CHEST PAIN 5/10 WITH NO EFFECT. RELAXATION TECHNIQUES ENCOURAGED.
[2020-05-10 11:02] VITALS: BP 121/81
--- NOTE | 2020-05-10 12:39 | NUR ---
DR. HEADLEY AT BEDSIDE.
--- NOTE | 2020-05-10 13:00 | NUR ---
SCHEDULED MED GIVEN AND PT ASKING ABOUT DISCHARGE.
--- NOTE | 2020-05-10 13:41 | NUR ---
IV site discontinued, cath intact. No edema , no redness, voices no discomfort.
--- NOTE | 2020-05-10 13:59 | NUR ---
Discharge instructions given. Patient verbalizes understanding of same. Discharged in stable condition via Wheelchair to Home with TAXI. All belongings sent with pt.
== END 2020-05-10 13:57 | disposition home or self-care (01) ==
LOC: ED 18:36 → ED-I 22:30 → ED 22:47 → MS2 22:48
PROVIDERS: Emergency Medicine; ADMIT Internal Medicine; ATTEND Internal Medicine
DX: R07.9 Chest pain, unspecified (principal); I25.10 Atherosclerotic heart disease of native coronary artery without angina pectoris; I10 Essential (primary) hypertension; J43.9 Emphysema, unspecified; G89.4 Chronic pain syndrome; J96.10 Chronic respiratory failure, unspecified whether with hypoxia or hypercapnia; Z99.81 Dependence on supplemental oxygen; Z95.5 Presence of coronary angioplasty implant and graft; Z87.891 Personal history of nicotine dependence; Z20.828 Contact with and (suspected) exposure to other viral communicable diseases
CPT/HCPCS: G0378; S0164

== ENCOUNTER 2020-06-04 21:33 | Observation (INO) | payer MEDICARE, MEDICAID ==
[~2020-06-04] VITALS: Ht 172.7 cm; Wt 97.1 kg
--- NOTE | 2020-06-04 21:33 | NUR ---
PATIENT TO ROOM VIA EMS AND PHYSICIAN AT BEDSIDE FOR EVAL
[2020-06-04 22:33] LABS: HEMATOCRIT 30.6 % (37.0-47.0); HEMOGLOBIN 9.1 g/dl (12.0-16.0); IMMATURE GRANULOCYTES 0.2 % (0.0-5.0); MEAN CELL VOLUME 73.2 fL CALC (80.0-100.0); MEAN CORPUSCULAR HGB 21.8 pG CALC (26.0-32.0); MEAN CORPUSCULAR HGB CONC 29.7 g/dL CAL (32.0-36.0); NEUT# 6.07 thou/uL (2.00-7.15); RED BLOOD COUNT 4.18 mill/uL (4.20-5.60); RED CELL DISTRI WIDTH 18.4 % (11.5-15.5)
--- NOTE | 2020-06-04 22:35 | NUR ---
PAIN RELIEVED WITH MORPHINE ADMINSTRATION PAIN A 0 ON 0-10 SCALE. MD NOTIFIED
[2020-06-04 22:52] LABS: ALBUMIN 4.2 g/dL (3.2-5.0); ALKALINE PHOSPHATASE 92 u/l (38-126); AMYLASE 55 u/l (30-110); ANION GAP 11 (6-22 (CALC)); BILIRUBIN, TOTAL 0.2 mg/dL (0.0-1.4); BUN 22 mg/dL (8-23); BUN/CREATININE RATIO 21 (12-20 (CALC)); CARBON DIOXIDE 28 mmol/l (22-30); CHLORIDE 103 mmol/l (95-108); GFR 56 ML/MIN (>=60 (CALC)); GFR FOR AFR.AMER. > 60 ML/MIN (>=60 (CALC)); LIPASE 126 u/l (23-300); POTASSIUM 3.6 mmol/l (3.5-5.1); SGOT/AST 21 u/l (9-36); SODIUM 138 mmol/l (137-146); TOTAL PROTEIN 6.7 g/dL (6.3-8.2)
[2020-06-04 22:56] LABS: ACT PARTIAL THROMBO TIME 21.4 SECONDS (20.0-32.5); INTERNATIONAL NORMALIZED RATIO 0.9 RATIO (0.7-1.3); PROTHROMBIN TIME 9.4 SECONDS (9.0-12.5)
--- NOTE | 2020-06-04 23:38 | NUR ---
PATIENT UNABLE TO VERIFY AMOUNT OR TIME OF LAST HOME MEDICATION ADMINSTRATION. PHARMACY CONSULT PLACED. PATIT RATES CHEST PAIN 4 ON 0-10 SCALE
--- NOTE | 2020-06-05 | NUR ---
REPORT GIVEN TO NAHEED IN MED SURG AND PATIENT TRANSPORTED
[2020-06-05 00:10] VITALS: BP 133/81
--- NOTE | 2020-06-05 00:15 | NUR ---
PT ARRIVED TO THE FLOOR VIA WHEELCHAIR, ACCOMPANIED BY ED STAFF. VS OBTAINED AND ASSESSMENT COMPLETED. PT ALERT AND ORIENTED, RESPIRATIONS EVEN AND UNLABORED ON RA. LUNGS SOUND CLEAR. PEDAL PULSES ARE STRONG. SKIN IS INTACT. PT PROVIDED WITH A SANDWICH AND ICE WATER PER REQUEST. PT ORIENTED TO ROOM AND CALL [facility]. SAFETY PRECAUTIONS IN PLACE. WILL CONTINUE TO [facility].
[2020-06-05 01:45] VITALS: BP 135/77
--- NOTE | 2020-06-05 01:54 | NUR ---
PT COMPLAINS OF CHEST PAIN, VS OBTAINED, PT MEDICATED PER [facility]AR ORDERS, EKG ORERED. SAFETY PRECAUTIONS IN PLACE. WILL CONTINUE TO MONITOR.
[2020-06-05 03:35] VITALS: BP 110/69
--- NOTE | 2020-06-05 04:47 | NUR ---
PT RESTING IN BED, RESPIRATIONS EVEN AND UNLABORED ON RA. NO S/S OF DISTRESS AT THIS TIME. SAFETY PRECAUTIONS IN PLACE. WILL CONTINUE TO MONITOR.
[2020-06-05 07:22] VITALS: BP 122/83
--- NOTE | 2020-06-05 07:26 | NUR ---
REPORT RECEIVED FROM [facility]. PT SUPINE IN BED. REPORTS MIDESTERNAL CHEST PAIN, CRUSHING IN NATURE, 06/07, NOT NEW HAS BEEN CONSTANT FOR 2 DAYS. PAIN MEDICATION SCHEDULE REVIEWED. PLAN OF CARE REVIEWED. CALL LIGHT REVIEWED AND IN REACH. FALL PRECATUIONS REINFORCED. PT STATES UNDERSTANDING.
--- NOTE | 2020-06-05 11:10 | NUR ---
DR. HEADLEY IN TO SEE PT. AT THIS TIME.
[2020-06-05 11:19] VITALS: BP 135/75
[2020-06-05] MEDS ORDERED: PLAVIX75 MG PO (11:50)
--- NOTE | 2020-06-05 12:29 | NUR ---
RIGHT CHEST PORT FLUSHED WITH SALINE AND HEPARIN PER D/C POLICY. PORT DEACCESSED, PT. TOLERATED WELL. TELE UNIT REMOVED. DISCHARGE INSTRUCTIONS REVIEWED. PT STATES UNDERSTANDING.
--- NOTE | 2020-06-05 12:45 | NUR ---
Discharge instructions given. Patient verbalizes understanding of same. Discharged in stable condition via Wheelchair to Home with *Other. All belongings sent with pt.
== END 2020-06-05 12:45 | disposition home or self-care (01) ==
LOC: ED 21:33 → ED-I 23:30 → ED 23:49 → MS2 23:50 → ED-I 23:50 → MS2 23:59
PROVIDERS: ADMIT Internal Medicine; ATTEND Internal Medicine
DX: I25.118 Atherosclerotic heart disease of native coronary artery with other forms of angina pectoris (principal); I10 Essential (primary) hypertension; J96.10 Chronic respiratory failure, unspecified whether with hypoxia or hypercapnia; J43.9 Emphysema, unspecified; G89.4 Chronic pain syndrome; D64.9 Anemia, unspecified; I25.2 Old myocardial infarction; Z95.5 Presence of coronary angioplasty implant and graft; Z99.81 Dependence on supplemental oxygen; Z87.891 Personal history of nicotine dependence; Z91.19 Patient's noncompliance with other medical treatment and regimen; Z20.828 Contact with and (suspected) exposure to other viral communicable diseases
CPT/HCPCS: G0378

== ENCOUNTER 2020-08-10 02:12 | Observation (INO) | payer MEDICARE, MEDICAID ==
[~2020-08-10] VITALS: Ht 172.7 cm; Wt 97.7 kg
--- NOTE | 2020-08-10 02:12 | NUR ---
PT TO ROOM 10 BY EMS FOR CHEST PAIN. PT TOOK OWN NTG X2 AT HOME WITH OUT ANY RELIEF.
--- NOTE | 2020-08-10 03:00 | NUR ---
LITER NS BOLUS UP FOR B/P 72/45. WILL HOLD NTG PASTE FOR NOW.
[2020-08-10 03:04] LABS: HEMATOCRIT 30.2 % (37.0-47.0); HEMOGLOBIN 8.8 g/dl (12.0-16.0); IMMATURE GRANULOCYTES 0.3 % (0.0-5.0); MEAN CELL VOLUME 75.5 fL CALC (80.0-100.0); MEAN CORPUSCULAR HGB CONC 29.1 g/dL CAL (32.0-36.0); NEUT# 5.97 thou/uL (2.00-7.15); RED CELL DISTRI WIDTH 17.7 % (11.5-15.5)
[2020-08-10] MEDS ORDERED: DIOVAN HC1 PO (03:26)
[2020-08-10] MEDS ORDERED: TIZANIDINE4 MG PO (03:26)
[2020-08-10] MEDS ORDERED: OXYCODONE15 MG PO (03:27)
[2020-08-10 03:36] LABS: ALBUMIN 3.9 g/dL (3.2-5.0); ALKALINE PHOSPHATASE 102 u/l (38-126); AMYLASE 59 u/l (30-110); ANION GAP 11 (6-22 (CALC)); BILIRUBIN, TOTAL 0.2 mg/dL (0.0-1.4); BUN 28 mg/dL (8-23); BUN/CREATININE RATIO 12 (12-20 (CALC)); CARBON DIOXIDE 29 mmol/l (22-30); CHLORIDE 97 mmol/l (95-108); GFR 21 ML/MIN (>=60 (CALC)); GFR FOR AFR.AMER. 26 ML/MIN (>=60 (CALC)); POTASSIUM 3.9 mmol/l (3.5-5.1); SGOT/AST 21 u/l (9-36); SODIUM 133 mmol/l (137-146); TOTAL PROTEIN 6.6 g/dL (6.3-8.2)
[2020-08-10 03:37] LABS: D-DIMER 0.35 mg/L (0.19-0.60)
[2020-08-10 03:40] LABS: CREATININE 2.3 mg/dL (0.5-1.0)
[2020-08-10 03:41] LABS: ACT PARTIAL THROMBO TIME 21.4 SECONDS (20.0-32.5); INTERNATIONAL NORMALIZED RATIO 0.9 RATIO (0.7-1.3); PROTHROMBIN TIME 9.3 SECONDS (9.0-12.5)
[2020-08-10 03:47] LABS: MYOGLOBIN 108 ng/mL (0 - 62)
--- NOTE | 2020-08-10 03:50 | NUR ---
BP UP TO 131/60
--- NOTE | 2020-08-10 03:55 | NUR ---
DR HOUGH IN TO GO OVER RESULTS WITH PT. DR HOUGH STATED HE WOKE THE PT AND SHE STATED HER PAIN WAS THE SAME. PT TO BE ADMITTED FOR CHEST PAIN.
--- NOTE | 2020-08-10 04:32 | NUR ---
COVID SCREEN NEGATIVE. PT REQUESTED PAIN MEDICATION FOR HER CHEST PAIN. DR HOUGH AWARE AND STATED HE WOULD REORDER NTG PASTE A FLOOR ORDER.
--- NOTE | 2020-08-10 05:20 | NUR ---
Admission Note Report Given to: SOUTH RUANO Transported by: X Wheelchair Stretcher Transported with: X Nurse Transporter X Patent IV O2 X Channel Lip Stiffener Insoles Location: ICU X MS2
[2020-08-10 05:30] VITALS: BP 152/88
--- NOTE | 2020-08-10 05:30 | NUR ---
64 YEAR OLD FEMALE ADMITTED TO FLOOR VIA W/C ACCOMPANIED BY ER STAFF WITH DIAGNOSIS OF CHEST PAIN. PATIENT IS ALERT, VERBAL, ABLE TO MAKE NEEDS KNOWN. ABLE TO TOLERATE MEDS WELL WHOLE. CONT OF BOWEL AND BLADDER--AMBULATES ABOUT ON OWN AD CORRINE IN ROOM--STEADY GAIT. C/O VERY DULL ACHE IN LEFT CHEST DURING ASSESSMENT--PAIN DOESN'T RADIATE ANYWHERE--C/O NAUSEA, NO EMESIS NOTED. FULL CODE. ALLERGIES TO NSAIDS. CARDIAC DIET IN PLACE. SKIN ASSESSMENT COMPLETED--NOTED TO HAVE A SMALL SCAB TO RIGHT CORBIN OTHERWISE SKIN IS UNREMARKABLE/INTACT. POWER PORT IN PLACE TO [facility]--ACCESSED. LAST BM YESTERDAY @ HOME. TO BE MONITORED BY TELEMETRY OBSERVATION. ORIENTED TO ROOM--C/L WITHIN REACH. WILL CONT TO MONITOR FOR ANY FURTHER CHANGES.
[2020-08-10 07:10] VITALS: BP 126/78
--- NOTE | 2020-08-10 07:10 | NUR ---
PT SLEEPING IN BED. AWAKENED TO COMPLETE ASSESSMENT. A&O X3. PT HAS DROWSY APPEARANCE BUT ABLE TO FOLLOW COMMANDS. PT C/O OF PAIN IN MID CHEST 05/08, DENIES IT RADIATING ANYWHERE ELSE. ACCESSED PORT TO RU CHEST. NO OTHER NEEDS AT THIS TIME. ASSESSMENT COMPLETED. DISCUSSED POC. CALL LIGHT IN REACH. CONTINUE TO MONITOR.
--- NOTE | 2020-08-10 08:26 | NUR ---
MICAH AHMADI AT BEDSIDE DISCUSSING POC
[2020-08-10 11:08] VITALS: BP 110/76
--- NOTE | 2020-08-10 11:59 | NUR ---
PT C/O OF MIDSTERNAL PAIN, NITRO PATCH APPLIED TO LEFT UPPER CHEST.
--- NOTE | 2020-08-10 13:48 | NUR ---
PT C/O OF MIDSTERNAL CHEST PAIN 07/08. PAIN MEDICATION GIVEN. WILL REASSESS.
[2020-08-10 16:16] VITALS: BP 104/71
--- NOTE | 2020-08-10 18:14 | NUR ---
PT STILL C/O OF MIDSTERNAL CP. TROPS NEGATIVE WITH NO CHANGE ON TELEMETRY. DR STREETER NOTIFIED.
[2020-08-10 18:17] VITALS: BP 93/48
--- NOTE | 2020-08-10 18:24 | NUR ---
PT COMPLAINS OF 8/10 MID STERNUM PAIN. PT IS VERY DROWSY AND BARLEY TO KEEP EYES OPEN. RESPIRATIONS ARE EVEN AND UNLABORED WITH NO SIGNS OF DISTRESS. BP 93/48, HR 64.NITRO OINTMENT HELD. WRITTER INFORMED PT THAT BP WAS TO LOW TO ADMINISTER NITRO OITNMENT. PT VERBAILZED UNDERSTANDING. ALL SAFETY PRECAUTIONS ARE IN PLACE WITH CALL LIGHT IN REACH.
--- NOTE | 2020-08-10 18:37 | NUR ---
PT CURRENTLY SLEEPING IN BED WITH NO DISTRESS NOTED, PER HOSEA CARDONA PT SLIGHTLY HYPOTENSIVE AND DROWSY.
[2020-08-10 19:00] VITALS: BP 114/73
--- NOTE | 2020-08-10 19:39 | NUR ---
Report from dayshift nurse via sbar format. Found patient resting in bed with eyes closed, easily arouses to stimuli, reports no chest pain at this time, resp are even and unlabored on room air, encouraged to call if needed, call stratton at reach, ns infusing at 100m/hr per hr to patent iv site, no s/s of infiltration noted. Will follow up closely.
--- NOTE | 2020-08-10 21:16 | NUR ---
PATIENT C/O CHEST PAIN, CRUSHING PAIN, NO S/S OF DISTRESS NOTED, DOZING IN BED ON AND OFF, OXYGEN SET UP AT BEDSIDE, PATIENT IS ON ROOM AIR, RESP ARE EVEN AND UNLABORED, ROXICODONE PO ADMINISTERED, VSS, WILL FOLLOW UP WITH REASSESSMENT. CALL OHARA AT REACH, SAFETY MEASURES IN PLACE.
[2020-08-11] VITALS: BP 106/72
--- NOTE | 2020-08-11 01:10 | NUR ---
patient denies any chest pain, bp is soft, no s/s of distress noted, nitropaste not administered at this time. will follow up closely, call stratton at reach.
--- NOTE | 2020-08-11 02:05 | NUR ---
Patient is resting in bed with eyes closed, easily awakes to stimuli, no needs reported, will follow up with frequently roundings.
[2020-08-11 04:00] VITALS: BP 132/60
--- NOTE | 2020-08-11 04:24 | NUR ---
Patient is resting in bed, dozing on and off, no chest pain reported, resp are even and unlabored on room air, lab blood drawn from right upper chest port per hospital protocol, flushed line and wasted per Md orders, manually BP 132/60. Will follow up with frequently roundings.
[2020-08-11 04:44] LABS: HEMATOCRIT 28.4 % (37.0-47.0); HEMOGLOBIN 8.2 g/dl (12.0-16.0); IMMATURE GRANULOCYTES 0.3 % (0.0-5.0); MEAN CELL VOLUME 75.7 fL CALC (80.0-100.0); MEAN CORPUSCULAR HGB 21.9 pG CALC (26.0-32.0); MEAN CORPUSCULAR HGB CONC 28.9 g/dL CAL (32.0-36.0); NEUT# 3.31 thou/uL (2.00-7.15); RED BLOOD COUNT 3.75 mill/uL (4.20-5.60)
[2020-08-11 05:09] LABS: ALBUMIN 3.2 g/dL (3.2-5.0); ALKALINE PHOSPHATASE 83 u/l (38-126); ANION GAP 8 (6-22 (CALC)); BILIRUBIN, TOTAL 0.1 mg/dL (0.0-1.4); BUN 19 mg/dL (8-23); BUN/CREATININE RATIO 24 (12-20 (CALC)); CARBON DIOXIDE 28 mmol/l (22-30); CHLORIDE 105 mmol/l (95-108); CREATININE 0.8 mg/dL (0.5-1.0); GFR > 60 ML/MIN (>=60 (CALC)); GFR FOR AFR.AMER. > 60 ML/MIN (>=60 (CALC)); POTASSIUM 4.1 mmol/l (3.5-5.1); SGOT/AST 19 u/l (9-36); SODIUM 137 mmol/l (137-146); TOTAL PROTEIN 5.6 g/dL (6.3-8.2)
[2020-08-11 06:10] VITALS: BP 136/60
--- NOTE | 2020-08-11 06:15 | NUR ---
PATIENT C/O MIDSTERNAL CHEST PAIN; RATES IT AT 3/10, NO S/S OF DISTRESS NOTED, RESP ARE EVEN AND UNLABORED ON ROOM AIR, NITROGLYCERIN OINTMENT PLACED ON RIGHT UPPER ARM PER MD ORDERS. VSS, WILL FOLLOW UP CLOSELY. CALL OHARA AT REACH.
[2020-08-11 07:47] VITALS: BP 110/70
--- NOTE | 2020-08-11 07:47 | NUR ---
PT SITTING IN BED. A&O X3. NO DISTRESS NOTED. PT MORE AWAKE IN APPEARANCE THIS MORNING. PT C/O OF CP 05/08 BUT STATES SHE IS DOING "A LITTLE BETTER THAN YESTERDAY". NITRO PATCH IN PLACE TO DIONISIO. BP MANUALLY TAKEN THIS MORNING, 110/70 WITH HR OF 65, WILL CONTINUE TO MONITOR BP AND HR. ACCESSED PORT TO RU CHEST STILL IN PLACE WITH DRESSING CDI. NO OTHER NEEDS AT THIS TIME. ASSESSMENT COMPLETED. DISCUSSED POC. CALL LIGHT IN REACH. CONTINUE TO MONITOR.
--- NOTE | 2020-08-11 08:55 | NUR ---
DR STREETER AT BEDSIDE DISCUSSING POC.
[2020-08-11] MEDS ORDERED: MEDDOSEPAK PO (08:59)
--- NOTE | 2020-08-11 09:53 | NUR ---
ONE TIME DOSE OF SOLUMEDROL GIVEN, PORT FLUSHED WITH NS AND HEPARIN PER PROTOCOL. PORT FLUSHED AND LUIS E BACK BLOOD WITH EASE. IV FLUIDS RECONNECTED. CALL LIGHT IN REACH. CONTINUE TO MONTIOR.
[2020-08-11 10:30] VITALS: BP 115/68
--- NOTE | 2020-08-11 13:44 | NUR ---
PT SITTING IN BED TALKING ON THE PHONE. PT VOICED THAT SHE DID NOT HAVE A WAY TO GET HOME, APPROVAL FOR [employer] FROM [employer]. PT AGREEABLE TO TRANSPORTATION.
--- NOTE | 2020-08-11 14:15 | NUR ---
PORT DEACCESSED BY THIS RETAIL SUPPORT SPECIALIST AND WITH THE ASSISTANCE OF BOGDAN DIA. PORT FLUSHED WITH NS AND HEPARIN PER PROTOCOL PRIOR TO REMOVAL. PT TOLERATED WELL. 2X2 GAUZE PLACED WITH TEGADERM DRESSING.
--- NOTE | 2020-08-11 14:53 | NUR ---
Discharge instructions given. Patient verbalizes understanding of same. Pt instructed to f/u with pcp and diesel scoop operator as soon as possible, pt instructed to come back if chest pain does not resolve, or if symptoms worsen with a new onset of SOB or symptoms. Discharged in stable condition via wheelchair to home accompanied by staff. All belongings sent with pt.
== END 2020-08-11 14:53 | disposition home or self-care (01) ==
LOC: ED 02:12 → ED-I 03:50 → ED 04:10 → MS2 04:11
PROVIDERS: Family Medicine; Physician Assistant; ADMIT Internal Medicine; ATTEND Internal Medicine
DX: R07.9 Chest pain, unspecified (principal); D50.9 Iron deficiency anemia, unspecified; N17.9 Acute kidney failure, unspecified; I95.9 Hypotension, unspecified; I25.10 Atherosclerotic heart disease of native coronary artery without angina pectoris; I10 Essential (primary) hypertension; E78.5 Hyperlipidemia, unspecified; J96.10 Chronic respiratory failure, unspecified whether with hypoxia or hypercapnia; J43.9 Emphysema, unspecified; G89.4 Chronic pain syndrome; F41.9 Anxiety disorder, unspecified; F32.9 Major depressive disorder, single episode, unspecified; Z95.5 Presence of coronary angioplasty implant and graft; Z99.81 Dependence on supplemental oxygen; Z95.828 Presence of other vascular implants and grafts; Z87.891 Personal history of nicotine dependence; Z20.828 Contact with and (suspected) exposure to other viral communicable diseases
CPT/HCPCS: G0378; J1650; J1756

== ENCOUNTER 2020-09-01 21:05 | Observation (INO) | payer MEDICARE, MEDICAID ==
[~2020-09-01] VITALS: Ht 172.7 cm; Wt 105.8 kg
[~2020-09-01 21:05] MED LIST changes: +DIOVAN HC1 PO
--- NOTE | 2020-09-01 21:05 | NUR ---
TO ROOM 6 VIA EMS
[2020-09-01 22:01] LABS: HEMATOCRIT 29.3 % (37.0-47.0); HEMOGLOBIN 8.6 g/dl (12.0-16.0); IMMATURE GRANULOCYTES 0.4 % (0.0-5.0); MEAN CELL VOLUME 78.6 fL CALC (80.0-100.0); MEAN CORPUSCULAR HGB 23.1 pG CALC (26.0-32.0); MEAN CORPUSCULAR HGB CONC 29.4 g/dL CAL (32.0-36.0); NEUT# 6.62 thou/uL (2.00-7.15); RED BLOOD COUNT 3.73 mill/uL (4.20-5.60); RED CELL DISTRI WIDTH 19.9 % (11.5-15.5)
[2020-09-01 22:14] LABS: ALBUMIN 3.3 g/dL (3.2-5.0); ALKALINE PHOSPHATASE 85 u/l (38-126); ANION GAP 6 (6-22 (CALC)); BILIRUBIN, TOTAL 0.1 mg/dL (0.0-1.4); BUN 26 mg/dL (8-23); BUN/CREATININE RATIO 21 (12-20 (CALC)); CHLORIDE 99 mmol/l (95-108); CREATININE 1.2 mg/dL (0.5-1.0); GFR 45 ML/MIN (>=60 (CALC)); GFR FOR AFR.AMER. 55 ML/MIN (>=60 (CALC)); POTASSIUM 3.9 mmol/l (3.5-5.1); SGOT/AST 17 u/l (9-36); SODIUM 135 mmol/l (137-146); TOTAL PROTEIN 5.6 g/dL (6.3-8.2)
[2020-09-01 22:15] LABS: CARBON DIOXIDE 34 mmol/l (22-30)
[2020-09-01 22:26] LABS: MYOGLOBIN 32 ng/mL (0 - 62)
--- NOTE | 2020-09-01 22:27 | NUR ---
PT REFUSED COVID SWAB....ONLY ALLOWED TO INSERTED ABOUT 1/2 INCH...."FAR ENOUGH."
--- NOTE | 2020-09-01 23:06 | NUR ---
FEELS BETTER. PAIN SUBSIDING
--- NOTE | 2020-09-02 01:54 | NUR ---
REPORT CALLED TO MS2
--- NOTE | 2020-09-02 02:00 | NUR ---
PT TO FLOOR BY ANNELISE GEE [employer] DEFENSE ARTILLERY. PT HAS POCKET MONITOR. MIRANDA.
--- NOTE | 2020-09-02 02:00 | NUR ---
MED REC NOT COMPLETED IN ER CRITICAL PT IN UNIT..
[2020-09-02 02:15] VITALS: BP 137/64
--- NOTE | 2020-09-02 03:58 | NUR ---
PT C/O CP 8-10. ER PHYSICIAN NOTIFIED OF PT COMPLAINT. VSS. ORDERS RECEIVED FOR X1 DOSE MORPHINE 2MG IV NOW.
[2020-09-02 04:00] VITALS: BP 100/62
--- NOTE | 2020-09-02 05:47 | NUR ---
PT ARRIVED TO THE FLOOR AT 0225 THIS MORNING FROM THE ER, WITH C/O INTERMITTENT STERNAL CHEST TIGHTNESS NITRO WAS GIVEN TO HER AT THE ER WITH BABY ASA, LABS WERE NEGATIVE, EKG COMPLETED WITH NO CHANGES OF CONCERN NOTED. ALLERGY IS NSAIDS PER PT B/P AT 0225 WAS 137/64, PT SHOWS NO S/S OF DISTRESS. C/O 7/10 CHEST PAIN, IV MORPHINE GIVEN WITH SOME EFFECT, PRN MYLANTA AND PEPSID WITH GOOD EFFECT. PT SKIN IS WARM, DRY AND INTACT, LUNGS CLEAR, POSITIVE BOWEL SOUNDS IN ALL QUADRENTS. DR. HARDEN IS THE PHYSIAN. LABS DRAWN THIS MORNING, PLAN IS TO D/C PT TODAY. PHYSIAN, PT DENIES EXPOSURE TO COVID-19, DENIES ANY RECENT TRAVEL. DOES NOT APPEAR TO BE IN DISTRESS AT THIS TIME.
--- NOTE | 2020-09-02 07:15 | NUR ---
REPORT RECEIVED FROM SOUTH JOY;PT APPEARS TO BE SLEEPING IN SEMI FOWLERS POSITION;NO S/S OF DISTRESS NOTED;TELE MONITORING IN PLACE;ALL SAFETY PRECAUTIONS REMAIN IN PLACE WITH CALL LIGHT IN REACH;WILL CONTINUE TO MONITOR
[2020-09-02 08:54] VITALS: BP 90/69
--- NOTE | 2020-09-02 08:55 | NUR ---
PT RESTING IN SEMI FOWLERS POSITION,A&O X3;VS OBTAINED AND ASSESSMENT COMPLTED;PT DENIES ANY CURRENT PAIN OR DISCOMFORTS,PAIN SCALE AND REPORTING EDUCATED;RESPIRATIONS SHALLOW ON RA,COURSE LUNG SOUNDS NOTED;ABDOMEN DISTENDED/SOFT ON PALPATION AND ACTIVE IN ALL 4 QUADRANTS;WEAK PEDAL PULSES;SKIN INTACT;TELE MONITORING IN PLACE;RT SUBCLAVIAN CHEST PORT INFUSING NS PER ORDER WITH EASE,SITE APPEARS HEALTHY;PT DENIES ANY ADDITIONAL NEEDS AT THIS TIME AND IS ENCOURAGED TO CALL FOR ASSISTANCE IF NEEDED;FALL PRECAUTIONS IN PLACE WITH BED IN THE LOWEST POSITION AND CALL LIGHT IN REACH;WILL CONTINUE TO MONITOR
[2020-09-02 10:04] LABS: URINE BILIRUBIN - DIPSTICK NEGATIVE (NEGATIVE); URINE BLOOD DIPSTICK TRACE-INTACT (NEGATIVE); URINE COLOR YELLOW; URINE GLUCOSE - DIPSTICK NEGATIVE (NEGATIVE); URINE KETONE NEGATIVE (NEGATIVE); URINE LEUK ESTERASE NEGATIVE (NEGATIVE); URINE NITRITE - DIPSTICK NEGATIVE (Negative); URINE PROTEIN - DIPSTICK NEGATIVE (NEG-TRACE); URINE UROBILINOGEN - DIPSTICK 0.2 E.U./dL (0.2)
[2020-09-02 11:25] VITALS: BP 129/73
--- NOTE | 2020-09-02 11:25 | NUR ---
PT REPORTS CHEST PAIN, BP 129/73 HR 69;BLANK ANRP NOTIFIED AT THIS TIME;WILL CONTINUE TO MONITOR
[2020-09-02 12:03] LABS: ANION GAP 7 (6-22 (CALC)); BUN 19 mg/dL (8-23); BUN/CREATININE RATIO 23 (12-20 (CALC)); CARBON DIOXIDE 30 mmol/l (22-30); CHLORIDE 104 mmol/l (95-108); CREATININE 0.9 mg/dL (0.5-1.0); GFR > 60 ML/MIN (>=60 (CALC)); GFR FOR AFR.AMER. > 60 ML/MIN (>=60 (CALC)); POTASSIUM 4.1 mmol/l (3.5-5.1); SODIUM 137 mmol/l (137-146)
--- NOTE | 2020-09-02 12:13 | NUR ---
RT AT BEDSIDE OBTAINING EKG.
--- NOTE | 2020-09-02 12:40 | NUR ---
PT RESTING IN SEMI FOWLERS POSITION;RESPIRATIONS REMAIN SHALLOW ON RA;PT CONTINUES TO REPORT CHEST PAIN,TROPS NEG AND EKG WNL;BLANK ANRP AWARE;IV FLUIDS INFUSING WITH EASE PER ORDER;TELE MONITORING IN PLACE;PT DENIES ANY ADDITIONAL NEEDS AT THIS TIME AND IS ENCOURAGED TO CALL FOR ASSISTANCE IF NEEDED;FALL PRECAUTIONS REMAIN IN PLACE WITH BED IN THE LOWEST POSITION AND CALL LIGHT IN REACH;WILL CONTINUE TO MONITOR
--- NOTE | 2020-09-02 12:59 | NUR ---
BLANK PARTIDA AT BEDSIDE DISCUSSING POC.
[2020-09-02] MEDS ORDERED: PROTONIX40 M2 PO ×2 (13:17)
--- NOTE | 2020-09-02 13:35 | NUR ---
PATIENT REPORTED MID-STERNAL CHEST PAIN. STATED PAIN IS CRUSHING AND RATED PAIN A 7 OUT OF 10 ON PAIN SCALE, PATIENT MEDICATED WITH ROXYCODONE 15MG P.O. AT THIS TIME. WILL CONTINUE TO MONITOR STATES NO OTHER COMPLAINTS.
[2020-09-02 15:10] VITALS: BP 125/83
--- NOTE | 2020-09-02 15:11 | NUR ---
PORT DEACCESSED AT THIS TIME WITH ASEPTIC TECHNIQUES. PATIENT TOLERATED WELL. NO REDDNESS NOTED AROUND PORT AT THIS TIME. PORT AREA CLEANED AND BANDAIDE APPLIIED. PATIENT STATES NO COMPLAINTS AT THIS TIME.
--- NOTE | 2020-09-02 16:17 | NUR ---
WENT OVER DISCHARGE INSTRUCTIONS WITH PATIENT. PATIENT ADVISED TO FOLLOW UP WITH HER PRIMARY IN 1 WEEK. PATIENT GOING HOME WITH ONE NEW RX. PROTONIX 40MG DAILY FOR 30 DAYS. (RX. SENT TO OUTSIDE PHARMACY) PATIENT GIVEN DIRECTION TO RESUME ALL HOME MEDICATION TO INCLUDE PAIN MEDICATION AND TO FOLLOW PRESCRIBED DOSAGE. PATIENT ADVISED TO USE NIRTOGLYCERIN PERSCIBED FOR CHEST PAIN AND PATIENT WAS INFORMED THAT CARDIAC WORKUP AT HOSPITAL WAS NEGATIVE. PATIENT STATED SHE UNDERSTOOD ALL DISCHARGED INSTURCTIONS AND DID REQUEST A CAB RIDE HOME. PAYROLL AND BENEFITS SPECIALIST CALLED AND CAB ARRAINGMENTS MADE FOR PICK-UP.
--- NOTE | 2020-09-02 16:42 | NUR ---
Discharge instructions given. Patient verbalizes understanding of same. Discharged in stable condition via Wheelchair to Home with *Other. All belongings sent with pt. PT TRANSPORTED TO [facility] IN STABLE CONDITION VIA WHEELCHAIR ACCOMPANIED BY ANDREZ VEGA. TAXI TO TRANSPORT PT HOME.
== END 2020-09-02 16:42 | disposition home or self-care (01) ==
LOC: ED 21:05 → ED-I 09-02 00:10 → ED 09-02 01:30 → MS2 09-02 01:31
PROVIDERS: Emergency Medicine; Nurse Practitioner; ADMIT Internal Medicine; ATTEND Internal Medicine
DX: R07.2 Precordial pain (principal); I25.10 Atherosclerotic heart disease of native coronary artery without angina pectoris; D50.9 Iron deficiency anemia, unspecified; F41.9 Anxiety disorder, unspecified; N17.9 Acute kidney failure, unspecified; F32.9 Major depressive disorder, single episode, unspecified; J43.9 Emphysema, unspecified; G89.4 Chronic pain syndrome; J96.10 Chronic respiratory failure, unspecified whether with hypoxia or hypercapnia; Z99.81 Dependence on supplemental oxygen; Z95.5 Presence of coronary angioplasty implant and graft; Z87.891 Personal history of nicotine dependence; Z20.828 Contact with and (suspected) exposure to other viral communicable diseases
CPT/HCPCS: G0378

== ENCOUNTER 2020-09-07 20:15 | Observation (INO) | payer MEDICARE, MEDICAID ==
[~2020-09-07] VITALS: Ht 172.7 cm; Wt 105.3 kg
[~2020-09-07 20:15] MED LIST changes: +PROTONIX40 M2 PO
--- NOTE | 2020-09-07 20:15 | NUR ---
PATIENT TO ROOM 12 VIA EMS STRETCHER. TRIAGE COMPLETED AT BEDSIDE.
[2020-09-07 21:08] LABS: HEMATOCRIT 31.7 % (37.0-47.0); HEMOGLOBIN 9.4 g/dl (12.0-16.0); IMMATURE GRANULOCYTES 0.4 % (0.0-5.0); MEAN CELL VOLUME 77.5 fL CALC (80.0-100.0); MEAN CORPUSCULAR HGB CONC 29.7 g/dL CAL (32.0-36.0); NEUT# 6.44 thou/uL (2.00-7.15); RED BLOOD COUNT 4.09 mill/uL (4.20-5.60)
--- NOTE | 2020-09-07 21:10 | NUR ---
PT PRESENTS WITH CHEST PAIN 8/10 THAT STARTED THIS AFTERNOON. SHE MENTIONS HAVING SOB THAT STARTED TWO DAYS AGO AND CONTINUES. SHE WAS WATCHING TV WHEN IT HAPPENED. BPM 23. WHEEZING NOTED. DENIED N/V OR RADIATION. DENIED BLURRED VISION OR LIGHTHEADEDNESS. WILL CONTINUE TO MONITOR.
[2020-09-07] MEDS ORDERED: NORVASC PO (21:42)
[2020-09-07] MEDS ORDERED: BUPRENORPHINE (21:47)
[2020-09-07] MEDS ORDERED: VISTARIL 50MG C50 MG PO (21:48)
[2020-09-07 21:50] LABS: MYOGLOBIN 37 ng/mL (0 - 62)
--- NOTE | 2020-09-07 21:50 | NUR ---
GAVE REPORT TO SONNY
--- NOTE | 2020-09-07 22:01 | NUR ---
MEDICATED PT FOR CHEST PAIN. DR HOUGH SPOKE WITH PT ABOUT RESULTS OF TEST AND PT PREFERS TO STAY IN THE HOSPITAL FOR NEB TREATMENTS.
--- NOTE | 2020-09-07 22:57 | NUR ---
Admission Note Report Given to: SOUTH PEDRAZA Transported by: X Wheelchair Stretcher Transported with: X Nurse Transporter X Patent IV O2 Olive Picker Location: ICU X MS2
--- NOTE | 2020-09-07 22:57 | NUR ---
TELEPHONE REPORT RECEIVED FROM Edison GAYTAN RN IN ED.
--- NOTE | 2020-09-07 23:30 | NUR ---
PT ARRIVES TO UNIT AT 2330 VIA WHEELCHAIR, ACCOMPANIED BY Edison GAYTAN RN.
[2020-09-08] VITALS: BP 147/94
--- NOTE | 2020-09-08 00:22 | NUR ---
PT MOVED TO ROOM 262 BECAUSE ROOM 272 TV IS NOT WORKING.
[2020-09-08 04:00] VITALS: BP 149/85
--- NOTE | 2020-09-08 07:20 | NUR ---
PATIENT LAYING IN BED AWAKE AND ALERT AND ORIENTED. PATIENT STATES SHE ISN'T HAVING ANY PAIN AT THIS TIME OR DIFFICULTY IN BREATHING. RESPIRATIONS ARE UNLABORED AT THIS TIME. REPORT RECEIVED BY NURSE COMFORT DIA.
[2020-09-08 07:55] VITALS: BP 139/86
--- NOTE | 2020-09-08 07:55 | NUR ---
AM ASSESSMENT DONE AT THIS TIME (SEE INTERVENTIONS). PATIENT LAYING IN BED PATIENT IS ALERT AND ORIENTED TO PERSON, PLACE, AND SELF. RESPIRATION EVEN AND UNLABORED. PATIENT STATES THAT PAIN LEVEL IS A 5 AND WAS PREVIOUSLY MEDICATED AT O540 AM. PATIENT NOTED TO HAVE WHEEZING IN UPPER AND LOWER LUNG GALVAN. PATIENT NANCI ANY OTHER COMPLAINTS AT THIS TIME. SIDERAILS UP X2 AND PATIENT INSTRUCTED TO USE CALL BUTTON FOR ASSISTANCE.
--- NOTE | 2020-09-08 09:49 | NUR ---
AT BEDSIDE DISCUSSING POC WITH PT.
--- NOTE | 2020-09-08 10:16 | NUR ---
INFLUENAZ VACCINE GIVEN IN RU ARM AND PATIENT WAS EDUCATED ON ADVERSE EFFECT. PATIENT VERBALIZES UNDERSTANDING.
--- NOTE | 2020-09-08 11:50 | NUR ---
PATIENT C/0 "CRUSHING" LEFT SIDED CHEST PAIN. PATIENT STATES HER PAIN LEVEL IS A 7 OUT OF A SCALE OF 0-10. PATIENT NANCI ANY RADIATION OF PAIN AT THIS TIME. PATIENT RESPIRATIONS ARE EASY AND UNLABORED. PATIENT MEDIDATED AT THIS TIME WITH NORCO. PATIENT ADJUSTED IN BED SIDE RAILS UP X2. PATIENT ATE 100 % OF HER LUNCH AND NANCI ALL OTHER NEEDS AT THIS TIME.
--- NOTE | 2020-09-08 13:12 | NUR ---
PT REQUESTS HOME MEDICATIONS, HOME MEDICATIONS HAVE NOT BEEN RE-STARTED BY MD CURRENTLY;VOICEMAIL LEFT TO ,AWAITING CALL BACK.
[2020-09-08 15:00] VITALS: BP 156/80
--- NOTE | 2020-09-08 15:44 | NUR ---
PATIENT LAYING IN BED TALKING ON CELL PHONE. PATIENT STATES HER PAIN LEVEL IS A 6 OUT OF A SCALE OF 0-10. PATIENT STATES THAT PAIN IN CHEST IS NOW "JUST AN ACHING PAIN" AND DENIES ANY OTHER NEEDS AT THIS TIME.
--- NOTE | 2020-09-08 16:22 | NUR ---
PATIENT MEDICATED AT THIS TIME FOR PAIN. PATIENT STATES PAIN IS A "6" OUT OF A 0-10 PAIN SCALE. PATIENT HAS NO OTHER COMPLAINTS AT THIS TIME.
[2020-09-08 19:00] VITALS: BP 143/85
--- NOTE | 2020-09-08 21:51 | NUR ---
PT CALLED TO SPEAK WITH HER NURSE. UPON ENTERING ROOM PT EYES WERE CLOSED, SPOKE TWICE TO PT PRIOR TO HER RESPONDING. PT REPORTED HAVING PAIN IN HER CHEST 7/10 ON PAIN SCALE AND NEEDING MEDICATION. PT MEDICATED FOR PAIN AT THIS TIME. NO S/O DISTRESS AT THIS TIME. OFFERED COMFORT MEASURES/DENIED. PT JUST FINISHED SANDWICH AND TWO JUICES, DENIES ANY OTHER NEEDS.
--- NOTE | 2020-09-08 22:10 | NUR ---
PT CALLED ASKING FOR TV DINNER TO EAT AND COKE/PROVIDED
--- NOTE | 2020-09-08 22:45 | NUR ---
PT SLEEPING, NO S/O DISTRESS NOTED. CALL LIGHT W/IN REACH.
--- NOTE | 2020-09-09 | NUR ---
PT MEDICATED ORDERS PROVIDE. PT AWOKE TO VERBALIZE RESPONSE TO MY VOICE AND PROMPTLY RETURNED TO SLEEP. NO S/O DISTRESS. CALL LIGHT W/IN REACH.
--- NOTE | 2020-09-09 02:28 | NUR ---
pt called for ice water/provided. denies any other needs at this time.
[2020-09-09 04:00] VITALS: BP 136/81
[2020-09-09 05:55] LABS: HEMATOCRIT 32.6 % (37.0-47.0); HEMOGLOBIN 9.7 g/dl (12.0-16.0); IMMATURE GRANULOCYTES 2.1 % (0.0-5.0); MEAN CELL VOLUME 77.8 fL CALC (80.0-100.0); MEAN CORPUSCULAR HGB 23.2 pG CALC (26.0-32.0); MEAN CORPUSCULAR HGB CONC 29.8 g/dL CAL (32.0-36.0); NEUT# 23.91 thou/uL (2.00-7.15); RED BLOOD COUNT 4.19 mill/uL (4.20-5.60); RED CELL DISTRI WIDTH 19.1 % (11.5-15.5)
[2020-09-09 06:12] LABS: ALBUMIN 3.8 g/dL (3.2-5.0); ALKALINE PHOSPHATASE 83 u/l (38-126); ANION GAP 9 (6-22 (CALC)); BUN 19 mg/dL (8-23); BUN/CREATININE RATIO 25 (12-20 (CALC)); CARBON DIOXIDE 29 mmol/l (22-30); CHLORIDE 103 mmol/l (95-108); CREATININE 0.8 mg/dL (0.5-1.0); GFR > 60 ML/MIN (>=60 (CALC)); GFR FOR AFR.AMER. > 60 ML/MIN (>=60 (CALC)); POTASSIUM 3.5 mmol/l (3.5-5.1); SGOT/AST 14 u/l (9-36); SODIUM 137 mmol/l (137-146); TOTAL PROTEIN 6.5 g/dL (6.3-8.2)
[2020-09-09 06:18] LABS: BILIRUBIN, TOTAL 0.2 mg/dL (0.0-1.4)
[2020-09-09 07:41] VITALS: BP 151/78
--- NOTE | 2020-09-09 07:41 | NUR ---
RECIEVED REPORT FROM SOUTH ALICIA. PT RESTING IN SEMI FOWLERS POSITION UPON ENTERING ROOM. INTRODUCED SELF TO PT AND DISCUSSED POC. ASSESSMENT AND VITALS COMPLETED AT THSI TIME. BP 151/78, HR 73, O2 95% ON ROOM AIR. RESPIRATIONS ARE EVEN AND UNLABORED WITH NO SIGNS OF DISTRESS NOTED. LUNG SOUNDS ARE CLEAR. HEART RHYTHM IS NORMAL. BOWEL SOUNDS ARE ACTIVE IN ALL QUADRANTS, LAST REPORTED BM 09/08/2020. RADIAL AND PEDAL PULSES YASIR STRONG WITH NORMAL CAPILLARY REFILL. RIGHT PORT ACCESSED 09/07/20, FLUSHED ,SITE APPEARS HEALTHY AND PATENT WITH GOOD BLOOD RETURN. PT COMPLAINS OF 6/10 PAIN IN CHEST. WRITTER ASKED IF THE CHEST PAIN IS ANY DIFFERENT. PT STATED " NO SAME PAIN ALWAYS." WRITTER INFORMED PT THAT PAIN MEDICATION WAS YET AVAILABLE. PT VERBAILZED UNDERSTANDING. PT DENIES OF ANY OTHER PAINS OR DISCOMFORTS AT THIS TIME. ALL [facility] PRCAUTIONS ARE IN PLACE WITH CALL LIGHT IN REACH. WILL CONTINUE TO MONITOR.
[2020-09-09] MEDS ORDERED: PREDNISONE10 MG PO (08:59)
--- NOTE | 2020-09-09 10:15 | NUR ---
DISCHARGE INSTRUCTIONS COMPLETED. PT REQUESTED PAIN MEDICATION PRIOR TO DISCHARGE. WRITTER INFORMED PT THAT PAIN MEDICATION WOULD NOT BE ABLE TO BE GIVEN DUE TO TAKING TAXI UPON DISCHARGE. PT VERBAILZED UNDERSTANDING. RIGHT PORT FLUSHED AND HEPARIN LOCKED. ALL SAFETY ARE IN PLACE WITH CALL LIGHT IN REACH. WILL CONTINUE TO MONITOR.
--- NOTE | 2020-09-09 10:35 | NUR ---
PT EDUCATED ON DISCHARGE PAPER WORK AND NEW MEDICATION PREDISONE. PT VERBAILZED UNDERSTANDING WITH NO QUESTIONS. PORT DEACESSED BY FELIX. PT TOLERATED WELL. AWAITING FOR TAXI FOR TRANSPORTATION. ALL [facility] PRCAUTIONS ARE IN PLACE WIHT CLAL LIGHT IN REACH. WILL CONTINUE TO MONITOR
--- NOTE | 2020-09-09 10:41 | NUR ---
Discharge instructions given. Patient verbalizes understanding of same. Discharged in stable condition via Wheelchair to Home with staff. All belongings sent with pt. PT DISCHARGED VIA WHEELCHAIR IN STABLE CONDITION ACCOMPAINED BY WRITTER. PT LEFT WITH ALL DISCHARGE PAPERWORK AND NEW SCIPT FOR PREDISONE. PT TRANSPORTED BY TAXI PAID BY [facility] TO HOME.
== END 2020-09-09 10:41 | disposition home or self-care (01) ==
LOC: ED 20:15 → ED-I 21:50 → ED 22:08 → MS2 22:09
PROVIDERS: Family Medicine; Physician Assistant; ADMIT Internal Medicine; ATTEND Internal Medicine
DX: R07.9 Chest pain, unspecified (principal); J43.9 Emphysema, unspecified; I10 Essential (primary) hypertension; F32.9 Major depressive disorder, single episode, unspecified; F41.9 Anxiety disorder, unspecified; T38.0X6A Underdosing of glucocorticoids and synthetic analogues, initial encounter; G89.4 Chronic pain syndrome; I25.10 Atherosclerotic heart disease of native coronary artery without angina pectoris; J96.10 Chronic respiratory failure, unspecified whether with hypoxia or hypercapnia; Z95.5 Presence of coronary angioplasty implant and graft; Z23 Encounter for immunization; Z99.81 Dependence on supplemental oxygen; Z91.120 Patient's intentional underdosing of medication regimen due to financial hardship; Z87.891 Personal history of nicotine dependence; Z20.828 Contact with and (suspected) exposure to other viral communicable diseases; D72.829 Elevated white blood cell count, unspecified
CPT/HCPCS: J1650

== ENCOUNTER 2020-10-01 22:26 | Observation (INO) | payer MEDICARE, MEDICAID ==
[~2020-10-01] VITALS: Ht 172.7 cm; Wt 101.0 kg
[~2020-10-01 22:26] MED LIST changes: +BUPRENORPHINE; +NORVASC PO; +VISTARIL 50MG C50 MG PO
[2020-10-01 23:10] LABS: HEMATOCRIT 30.4 % (37.0-47.0); HEMOGLOBIN 9.1 g/dl (12.0-16.0); IMMATURE GRANULOCYTES 0.2 % (0.0-5.0); MEAN CELL VOLUME 78.6 fL CALC (80.0-100.0); MEAN CORPUSCULAR HGB 23.5 pG CALC (26.0-32.0); MEAN CORPUSCULAR HGB CONC 29.9 g/dL CAL (32.0-36.0); NEUT# 4.86 thou/uL (2.00-7.15); RED BLOOD COUNT 3.87 mill/uL (4.20-5.60); RED CELL DISTRI WIDTH 17.3 % (11.5-15.5)
[2020-10-01 23:27] LABS: ALBUMIN 3.7 g/dL (3.2-5.0); ALKALINE PHOSPHATASE 87 u/l (38-126); ANION GAP 11 (6-22 (CALC)); BUN 34 mg/dL (8-23); BUN/CREATININE RATIO 31 (12-20 (CALC)); CARBON DIOXIDE 27 mmol/l (22-30); CHLORIDE 106 mmol/l (95-108); CREATININE 1.1 mg/dL (0.5-1.0); GFR 50 ML/MIN (>=60 (CALC)); GFR FOR AFR.AMER. > 60 ML/MIN (>=60 (CALC)); LIPASE 217 u/l (23-300); POTASSIUM 3.9 mmol/l (3.5-5.1); SODIUM 140 mmol/l (137-146); TOTAL PROTEIN 6.3 g/dL (6.3-8.2)
[2020-10-01 23:29] LABS: D-DIMER 1.24 mg/L (0.19-0.60)
[2020-10-01 23:39] LABS: ACT PARTIAL THROMBO TIME 22.5 SECONDS (20.0-32.5); PROTHROMBIN TIME 9.6 SECONDS (9.0-12.5)
[2020-10-01 23:58] LABS: BILIRUBIN, TOTAL 0.1 mg/dL (0.0-1.4); SGOT/AST 26 u/l (9-36)
[2020-10-02 01:55] LABS: URINE BILIRUBIN - DIPSTICK NEGATIVE (NEGATIVE); URINE BLOOD DIPSTICK SMALL (NEGATIVE); URINE COLOR YELLOW; URINE GLUCOSE - DIPSTICK NEGATIVE (NEGATIVE); URINE KETONE NEGATIVE (NEGATIVE); URINE NITRITE - DIPSTICK NEGATIVE (Negative); URINE PROTEIN - DIPSTICK NEGATIVE (NEG-TRACE); URINE UROBILINOGEN - DIPSTICK 0.2 E.U./dL (0.2)
[2020-10-02 01:56] LABS: URINE LEUK ESTERASE NEGATIVE (NEGATIVE)
[2020-10-02 02:03] LABS: URINE BACTERIA FEW hpf; URINE EPITHELIAL CELLS FEW EPI/hpf (0-FEW)
[2020-10-02 03:07] VITALS: BP 110/70
[2020-10-02 05:57] LABS: HEMOGLOBIN 9.1 g/dl (12.0-16.0); IMMATURE GRANULOCYTES 0.1 % (0.0-5.0); MEAN CELL VOLUME 78.9 fL CALC (80.0-100.0); MEAN CORPUSCULAR HGB 23.2 pG CALC (26.0-32.0); MEAN CORPUSCULAR HGB CONC 29.4 g/dL CAL (32.0-36.0); NEUT# 3.71 thou/uL (2.00-7.15); RED BLOOD COUNT 3.93 mill/uL (4.20-5.60); RED CELL DISTRI WIDTH 17.3 % (11.5-15.5)
[2020-10-02 06:24] LABS: ALBUMIN 3.5 g/dL (3.2-5.0); ALKALINE PHOSPHATASE 74 u/l (38-126); ANION GAP 10 (6-22 (CALC)); BILIRUBIN, TOTAL 0.1 mg/dL (0.0-1.4); BUN 29 mg/dL (8-23); BUN/CREATININE RATIO 27 (12-20 (CALC)); CARBON DIOXIDE 29 mmol/l (22-30); CHLORIDE 104 mmol/l (95-108); CREATININE 1.1 mg/dL (0.5-1.0); GFR 50 ML/MIN (>=60 (CALC)); GFR FOR AFR.AMER. > 60 ML/MIN (>=60 (CALC)); POTASSIUM 4.3 mmol/l (3.5-5.1); SGOT/AST 25 u/l (9-36); SODIUM 139 mmol/l (137-146); TOTAL PROTEIN 6.1 g/dL (6.3-8.2)
[2020-10-02 07:29] VITALS: BP 105/58
[2020-10-02] MEDS ORDERED: ISOSORB MONO30 MG PO (10:59)
[2020-10-02 11:00] VITALS: BP 124/82
== END 2020-10-02 12:45 | disposition home or self-care (01) ==
LOC: ED 22:26 → ED-I 10-02 01:10 → ED 10-02 01:37 → MS2 10-02 01:38
PROVIDERS: ADMIT Internal Medicine; ATTEND Internal Medicine
DX: R07.89 Other chest pain (principal); I10 Essential (primary) hypertension; I25.10 Atherosclerotic heart disease of native coronary artery without angina pectoris; J43.9 Emphysema, unspecified; J96.10 Chronic respiratory failure, unspecified whether with hypoxia or hypercapnia; F32.9 Major depressive disorder, single episode, unspecified; F41.9 Anxiety disorder, unspecified; G89.4 Chronic pain syndrome; Z99.81 Dependence on supplemental oxygen; Z95.5 Presence of coronary angioplasty implant and graft; Z87.891 Personal history of nicotine dependence; Z20.828 Contact with and (suspected) exposure to other viral communicable diseases
CPT/HCPCS: G0378; Q9967

== ENCOUNTER 2020-11-23 19:43 | Observation (INO) | payer MEDICARE, MEDICAID ==
[~2020-11-23] VITALS: Ht 172.7 cm; Wt 107.0 kg
--- NOTE | 2020-11-23 20:40 | NUR ---
PORT ACCESSED/LABS DRAWN/EKG DONE AND PORT CXR COMPLETED.
[2020-11-23 20:42] LABS: HEMATOCRIT 30.9 % (37.0-47.0); HEMOGLOBIN 8.9 g/dl (12.0-16.0); IMMATURE GRANULOCYTES 0.2 % (0.0-5.0); MEAN CELL VOLUME 81.5 fL CALC (80.0-100.0); MEAN CORPUSCULAR HGB 23.5 pG CALC (26.0-32.0); MEAN CORPUSCULAR HGB CONC 28.8 g/dL CAL (32.0-36.0); NEUT# 6.1 thou/uL (2.00-7.15); RED BLOOD COUNT 3.79 mill/uL (4.20-5.60); RED CELL DISTRI WIDTH 16.8 % (11.5-15.5)
[2020-11-23 20:54] LABS: ALBUMIN 3.7 g/dL (3.2-5.0); ALKALINE PHOSPHATASE 91 u/l (38-126); AMYLASE 67 u/l (30-110); ANION GAP 7 (6-22 (CALC)); BUN 20 mg/dL (8-23); BUN/CREATININE RATIO 18 (12-20 (CALC)); CARBON DIOXIDE 33 mmol/l (22-30); CHLORIDE 105 mmol/l (95-108); CREATININE 1.1 mg/dL (0.5-1.0); GFR 50 ML/MIN (>=60 (CALC)); GFR FOR AFR.AMER. > 60 ML/MIN (>=60 (CALC)); LIPASE 79 u/l (23-300); POTASSIUM 3.7 mmol/l (3.5-5.1); SGOT/AST 22 u/l (9-36); SODIUM 141 mmol/l (137-146); TOTAL PROTEIN 6.6 g/dL (6.3-8.2)
[2020-11-23 20:56] LABS: BILIRUBIN, TOTAL 0.2 mg/dL (0.0-1.4)
[2020-11-23 20:59] LABS: ACT PARTIAL THROMBO TIME 22.3 SECONDS (20.0-32.5); INTERNATIONAL NORMALIZED RATIO 0.9 RATIO (0.7-1.3)
--- NOTE | 2020-11-23 23:00 | NUR ---
PT RESTING. VSS. RESP EASY REG. AWAITING DISPO.
--- NOTE | 2020-11-24 00:07 | NUR ---
REPORT TO FLOOR/TAKEAH/NURSE.
[2020-11-24 00:10] VITALS: BP 115/72
--- NOTE | 2020-11-24 00:10 | NUR ---
WITH POCKET MONITOR. BELONGINGS WITH PT.
--- NOTE | 2020-11-24 00:10 | NUR ---
TO FLOOR VIA W/C.
--- NOTE | 2020-11-24 00:10 | NUR ---
UNABLE TO RECONCILE MEDS. PT DIDN'T HAVE A LIST. PHARM CONSULT ORDERED.
--- NOTE | 2020-11-24 03:17 | NUR ---
0008 received patient to room 273 via wheelchair. alert and oriented x3, vital signs stable. made aware of surroundings, instructed on use of call light and instructed to call for assistance prior to getting from bed. patient somnolent, will need re-enforcement. bedrails up x2, bed locked and in lowest position, call light within reach.
[2020-11-24 04:00] VITALS: BP 127/85
[2020-11-24 07:36] VITALS: BP 137/78
--- NOTE | 2020-11-24 07:36 | NUR ---
PT RESTING IN BED, NO SIGNS OF DISTRESS NOTED, RESP EVEN AND UNLABORED. PT DROWSY, VITALS OBTAINED. ASSESSMENT COMPLETED, CALL LIGHT IN REACH,CONTINUE TO MONITOR.
[2020-11-24] MEDS ORDERED: CLONAZEPAM2 MG PO (09:22)
[2020-11-24] MEDS ORDERED: DIOVAN160 MG PO (09:31)
[2020-11-24] MEDS ORDERED: HYDROCHLOROT12.5 M1 PO (09:31)
[2020-11-24] MEDS ORDERED: TIZANIDINE4 MG PO (09:32)
[2020-11-24] MEDS ORDERED: NORVASC5 M1 PO (09:32)
[2020-11-24] MEDS ORDERED: LOPRESSOR25 MG PO (09:33)
[2020-11-24] MEDS ORDERED: ABILIFY MYCITE10 MG PO (09:35)
[2020-11-24] MEDS ORDERED: MIRTAZAPINE30 M1 PO (09:35)
[2020-11-24] MEDS ORDERED: OXYCODONE15 MG PO (09:36)
[2020-11-24] MEDS ORDERED: RABEPRAZOLE SOD20 MG PO (09:37)
[2020-11-24] MEDS ORDERED: ISOSORB MONO30 MG PO (09:37)
[2020-11-24] MEDS ORDERED: CLOPIDOGREL75 MG PO (09:37)
[2020-11-24] MEDS ORDERED: SINGULAIR10 MG PO (09:38)
[2020-11-24] MEDS ORDERED: SIMVASTATIN20 MG PO (09:38)
[2020-11-24] MEDS ORDERED: PROAIR HFA IN (09:39)
[2020-11-24 10:50] VITALS: BP 137/81
--- NOTE | 2020-11-24 10:56 | NUR ---
PT RESTING IN BED, DISCUSSED OBTAINING MEDICAL RECORDS FROM [facility], PT SIGNED. UNABLE TO DRAW LAST TROPONIN FROM PORT, FLUSHED WITH HEPARIN, PT IS A DIFFICULT STICK. CALL LIGHT IN REACH,CONTINUE TO MONITOR.
--- NOTE | 2020-11-24 11:05 | NUR ---
CALL MADE TO [facility] AND SPOKE WITH NURSING DIESEL SCOOP OPERATOR REGARDING MEDICAL RECORDS. FAXED FORM, RECEIVED CONFORMATION. CALL LIGHT IN REACH,CONTINUE TO MONITOR.
--- NOTE | 2020-11-24 12:00 | NUR ---
PT ASKED FOR SOMEONE TO TAKE HER WALLET DOWN TO "RADU" DOWNSTAIRS AT ER WAITING ROOM. VOLLEYBALL COACH WAS GIVEN WALLET BY PT TO GIVE TO RADU TO KEEP. CALL LIGHT IN REACH,CONTINUE TO MONITOR.
[2020-11-24 15:19] VITALS: BP 127/78
[2020-11-24 19:00] VITALS: BP 107/61
[2020-11-24 19:30] LABS: URINE BILIRUBIN - DIPSTICK NEGATIVE (NEGATIVE); URINE BLOOD DIPSTICK TRACE-LYSED (NEGATIVE); URINE COLOR YELLOW; URINE GLUCOSE - DIPSTICK NEGATIVE (NEGATIVE); URINE KETONE TRACE mg/dL (NEGATIVE); URINE LEUK ESTERASE NEGATIVE (NEGATIVE); URINE NITRITE - DIPSTICK NEGATIVE (Negative); URINE PH 5.5 (4.5-8.0); URINE PROTEIN - DIPSTICK NEGATIVE (NEG-TRACE); URINE SPECIFIC GRAVITY 1.025; URINE UROBILINOGEN - DIPSTICK 0.2 E.U./dL (0.2)
[2020-11-25] VITALS: BP 100/61
[2020-11-25 04:00] VITALS: BP 103/63
[2020-11-25 06:24] LABS: HEMATOCRIT 28.1 % (37.0-47.0); HEMOGLOBIN 8.3 g/dl (12.0-16.0); MEAN CELL VOLUME 80.3 fL CALC (80.0-100.0); MEAN CORPUSCULAR HGB 23.7 pG CALC (26.0-32.0); MEAN CORPUSCULAR HGB CONC 29.5 g/dL CAL (32.0-36.0); RED BLOOD COUNT 3.5 mill/uL (4.20-5.60); RED CELL DISTRI WIDTH 16.7 % (11.5-15.5)
[2020-11-25 06:33] LABS: ANION GAP 7 (6-22 (CALC)); BUN 27 mg/dL (8-23); BUN/CREATININE RATIO 30 (12-20 (CALC)); CARBON DIOXIDE 30 mmol/l (22-30); CHLORIDE 107 mmol/l (95-108); CREATININE 0.9 mg/dL (0.5-1.0); GFR > 60 ML/MIN (>=60 (CALC)); GFR FOR AFR.AMER. > 60 ML/MIN (>=60 (CALC)); POTASSIUM 3.7 mmol/l (3.5-5.1); SODIUM 139 mmol/l (137-146)
[2020-11-25 07:19] VITALS: BP 119/65
--- NOTE | 2020-11-25 07:20 | NUR ---
PATIETN SITTING UP IN BED AT THIS TIME DENIES ANY NEEDS. POWER PORT FLUSHING AT THIS TIME WITHOUT DIFFICULTY. FINE ARTS MODEL DONE AT THIS TIME SEE INTERVENTIONS. CALL LIGHT WITHIN REACH SIDERAILS UP X 2
[2020-11-25 10:33] VITALS: BP 115/66
--- NOTE | 2020-11-25 12:30 | NUR ---
PATIENT RESTING IN BED AT THIS TIME DENIES ANY NEEDS CURREENTLY.
[2020-11-25] MEDS ORDERED: MEDDOSEPAK PO (12:51)
--- NOTE | 2020-11-25 15:04 | NUR ---
PATIENT D/C AT THIS TIME VERBALIZES UNDERSTANDING OF DC INSTRUCTIONS AT THIS TIME.
--- NOTE | 2020-11-25 15:23 | NUR ---
Discharge instructions given. Patient verbalizes understanding of same. Discharged in stable condition via Wheelchair to Home with friend. All belongings sent with pt.
== END 2020-11-25 15:14 | disposition home or self-care (01) ==
LOC: ED 19:43 → ED-I 21:55 → ED 22:20 → ED-I 22:21 → MS2 11-24 00:07
PROVIDERS: Emergency Medicine; Nurse Practitioner; ADMIT Internal Medicine; ATTEND Internal Medicine
DX: R07.9 Chest pain, unspecified (principal); J43.9 Emphysema, unspecified; J96.10 Chronic respiratory failure, unspecified whether with hypoxia or hypercapnia; I25.10 Atherosclerotic heart disease of native coronary artery without angina pectoris; I10 Essential (primary) hypertension; E11.9 Type 2 diabetes mellitus without complications; E78.5 Hyperlipidemia, unspecified; G89.4 Chronic pain syndrome; F32.9 Major depressive disorder, single episode, unspecified; F41.9 Anxiety disorder, unspecified; I25.2 Old myocardial infarction; B95.62 Methicillin resistant Staphylococcus aureus infection as the cause of diseases classified elsewhere; Z87.891 Personal history of nicotine dependence; Z95.5 Presence of coronary angioplasty implant and graft; Z79.891 Long term (current) use of opiate analgesic; Z99.81 Dependence on supplemental oxygen; Z20.828 Contact with and (suspected) exposure to other viral communicable diseases

== ENCOUNTER 2020-11-30 22:06 | Emergency (ER) | payer MEDICARE, MEDICAID ==
[~2020-11-30] VITALS: Ht 172.7 cm; Wt 104.0 kg
[~2020-11-30 22:06] MED LIST changes: +ABILIFY MYCITE10 MG PO; +CLONAZEPAM2 MG PO; +CLOPIDOGREL75 MG PO; +DIOVAN160 MG PO; +HYDROCHLOROT12.5 M1 PO; +LOPRESSOR25 MG PO; +MIRTAZAPINE30 M1 PO; +NORVASC5 M1 PO; +PROAIR HFA IN; +RABEPRAZOLE SOD20 MG PO; +SINGULAIR10 MG PO
[2020-11-30 23:14] LABS: URINE BILIRUBIN - DIPSTICK NEGATIVE (NEGATIVE); URINE BLOOD DIPSTICK NEGATIVE (NEGATIVE); URINE COLOR YELLOW; URINE GLUCOSE - DIPSTICK NEGATIVE (NEGATIVE); URINE KETONE TRACE mg/dL (NEGATIVE); URINE LEUK ESTERASE NEGATIVE (NEGATIVE); URINE NITRITE - DIPSTICK NEGATIVE (Negative); URINE PROTEIN - DIPSTICK NEGATIVE (NEG-TRACE); URINE SPECIFIC GRAVITY 1.025; URINE UROBILINOGEN - DIPSTICK 0.2 E.U./dL (0.2)
[2020-11-30 23:14] LABS: HEMATOCRIT 29.1 % (37.0-47.0); HEMOGLOBIN 8.6 g/dl (12.0-16.0); MEAN CELL VOLUME 80.6 fL CALC (80.0-100.0); MEAN CORPUSCULAR HGB 23.8 pG CALC (26.0-32.0); MEAN CORPUSCULAR HGB CONC 29.6 g/dL CAL (32.0-36.0); NEUT# 11.73 thou/uL (2.00-7.15); RED BLOOD COUNT 3.61 mill/uL (4.20-5.60); RED CELL DISTRI WIDTH 17.4 % (11.5-15.5)
[2020-11-30 23:35] LABS: ALBUMIN 3.7 g/dL (3.2-5.0); ALKALINE PHOSPHATASE 84 u/l (38-126); AMYLASE 68 u/l (30-110); ANION GAP 9 (6-22 (CALC)); BILIRUBIN, TOTAL 0.2 mg/dL (0.0-1.4); BUN 20 mg/dL (8-23); BUN/CREATININE RATIO 22 (12-20 (CALC)); CARBON DIOXIDE 31 mmol/l (22-30); CHLORIDE 108 mmol/l (95-108); CREATININE 0.9 mg/dL (0.5-1.0); GFR > 60 ML/MIN (>=60 (CALC)); GFR FOR AFR.AMER. > 60 ML/MIN (>=60 (CALC)); LIPASE 71 u/l (23-300); POTASSIUM 3.3 mmol/l (3.5-5.1); SGOT/AST 18 u/l (9-36); SODIUM 144 mmol/l (137-146); TOTAL PROTEIN 6.4 g/dL (6.3-8.2)
[2020-11-30 23:39] LABS: ACT PARTIAL THROMBO TIME 21.2 SECONDS (20.0-32.5); INTERNATIONAL NORMALIZED RATIO 0.9 RATIO (0.7-1.3); PROTHROMBIN TIME 9.3 SECONDS (9.0-12.5)
[2020-11-30 23:46] LABS: MYOGLOBIN 27 ng/mL (0 - 62)
[2020-11-30 23:51] LABS: D-DIMER 0.9 mg/L (0.19-0.60)
[2020-12-01 00:33] VITALS: BP 110/59
== END 2020-12-01 00:33 | disposition left against medical advice (07) ==
LOC: ED 22:06
PROVIDERS: Family Medicine
DX: R07.9 Chest pain, unspecified (principal); I10 Essential (primary) hypertension; J43.9 Emphysema, unspecified; F17.200 Nicotine dependence, unspecified, uncomplicated; I25.2 Old myocardial infarction; A49.02 Methicillin resistant Staphylococcus aureus infection, unspecified site; Z95.5 Presence of coronary angioplasty implant and graft; Z86.14 Personal history of Methicillin resistant Staphylococcus aureus infection; Z91.19 Patient's noncompliance with other medical treatment and regimen

== ENCOUNTER 2020-12-07 21:35 | Emergency (ER) | payer MEDICARE, MEDICAID ==
[~2020-12-07] VITALS: Ht 172.7 cm; Wt 113.6 kg
[2020-12-07] MEDS ORDERED: PERCOCET 5/325M1 TAB PO (23:10)
[2020-12-07] MEDS ORDERED: ORPHENADRINE100 MG PO (23:10)
[2020-12-07 23:25] VITALS: BP 106/52
== END 2020-12-07 23:30 | disposition home or self-care (01) ==
LOC: ED 21:35
DX: M47.812 Spondylosis without myelopathy or radiculopathy, cervical region (principal); M47.816 Spondylosis without myelopathy or radiculopathy, lumbar region; I10 Essential (primary) hypertension; I25.2 Old myocardial infarction; J43.9 Emphysema, unspecified; F41.9 Anxiety disorder, unspecified; F17.200 Nicotine dependence, unspecified, uncomplicated; Z86.14 Personal history of Methicillin resistant Staphylococcus aureus infection; Z95.5 Presence of coronary angioplasty implant and graft

== ENCOUNTER 2020-12-30 21:07 | Observation (INO) | payer MEDICARE, MEDICAID ==
[~2020-12-30] VITALS: Ht 172.7 cm; Wt 113.1 kg
[~2020-12-30 21:07] MED LIST changes: +ORPHENADRINE100 MG PO; +PERCOCET 5/325M1 TAB PO
[2020-12-30 22:03] LABS: HEMATOCRIT 29.2 % (37.0-47.0); HEMOGLOBIN 8.7 g/dl (12.0-16.0); IMMATURE GRANULOCYTES 1.5 % (0.0-5.0); MEAN CELL VOLUME 77.5 fL CALC (80.0-100.0); MEAN CORPUSCULAR HGB 23.1 pG CALC (26.0-32.0); MEAN CORPUSCULAR HGB CONC 29.8 g/dL CAL (32.0-36.0); NEUT# 12.17 thou/uL (2.00-7.15); RED BLOOD COUNT 3.77 mill/uL (4.20-5.60); RED CELL DISTRI WIDTH 17.1 % (11.5-15.5)
[2020-12-30 22:04] LABS: URINE BILIRUBIN - DIPSTICK NEGATIVE (NEGATIVE); URINE BLOOD DIPSTICK MODERATE (NEGATIVE); URINE COLOR YELLOW; URINE GLUCOSE - DIPSTICK NEGATIVE (NEGATIVE); URINE KETONE NEGATIVE (NEGATIVE); URINE LEUK ESTERASE NEGATIVE (NEGATIVE); URINE NITRITE - DIPSTICK NEGATIVE (Negative); URINE PROTEIN - DIPSTICK NEGATIVE (NEG-TRACE); URINE SPECIFIC GRAVITY 1.015; URINE UROBILINOGEN - DIPSTICK 0.2 E.U./dL (0.2)
[2020-12-30 22:14] LABS: URINE SQUAMOUS EPITHELIAL CELL FEW EPI/hpf (0-FEW); URINE WBC 0-2 WBC/hpf (0-5)
[2020-12-30 22:23] LABS: ALBUMIN 4.1 g/dL (3.2-5.0); ALKALINE PHOSPHATASE 86 u/l (38-126); ANION GAP 12 (6-22 (CALC)); BILIRUBIN, TOTAL 0.2 mg/dL (0.0-1.4); BUN 23 mg/dL (8-23); BUN/CREATININE RATIO 30 (12-20 (CALC)); CARBON DIOXIDE 26 mmol/l (22-30); CHLORIDE 106 mmol/l (95-108); CREATININE 0.8 mg/dL (0.5-1.0); GFR > 60 ML/MIN (>=60 (CALC)); GFR FOR AFR.AMER. > 60 ML/MIN (>=60 (CALC)); POTASSIUM 3.8 mmol/l (3.5-5.1); SGOT/AST 20 u/l (9-36); SODIUM 140 mmol/l (137-146); TOTAL PROTEIN 6.7 g/dL (6.3-8.2)
[2020-12-30 22:35] LABS: MYOGLOBIN 67 ng/mL (0 - 62)
[2020-12-31] VITALS (7 sets, daily range): BP systolic 138–157; BP diastolic 78–85
[2020-12-31] MEDS ORDERED: CLONAZEPAM2 MG PO (13:36)
[2020-12-31] MEDS ORDERED: ALPRAZOLAM1 MG PO (13:37)
[2020-12-31] MEDS ORDERED: PROAIR HFA108 MCG/AC PO (13:39)
[2020-12-31] MEDS ORDERED: ZOCOR20 M1 PO (13:39)
[2020-12-31] MEDS ORDERED: MIRTAZAPINE30 M2 PO (13:39)
[2020-12-31] MEDS ORDERED: TIZANIDINE HCL4 MG PO (13:40)
[2020-12-31] MEDS ORDERED: ABILIFY5 MG PO (13:40)
[2020-12-31] MEDS ORDERED: ACIPHEX20 M1 PO (13:41)
[2020-12-31] MEDS ORDERED: TRELEGY ELLIPTA1 AER PO (13:41)
[2020-12-31] MEDS ORDERED: LOPRESSOR50 M1 PO (13:42)
[2020-12-31] MEDS ORDERED: SINGULAIR10 MG PO (13:43)
[2020-12-31] MEDS ORDERED: ISOSORB MONO30 MG PO (13:43)
[2020-12-31] MEDS ORDERED: HYDROCHLOROT12.5 MG PO (13:44)
[2020-12-31] MEDS ORDERED: DIOVAN160 MG PO (13:45)
[2020-12-31] MEDS ORDERED: NORVASC5 M1 PO (13:45)
[2020-12-31] MEDS ORDERED: CLOPIDOGREL75 MG PO (13:49)
[2020-12-31] MEDS ORDERED: OXYCODONE15 MG PO (13:52)
[2021-01-01 04:03] VITALS: BP 150/92
[2021-01-01 06:01] LABS: HEMATOCRIT 32.2 % (37.0-47.0); HEMOGLOBIN 9.3 g/dl (12.0-16.0); MEAN CELL VOLUME 78.3 fL CALC (80.0-100.0); MEAN CORPUSCULAR HGB 22.6 pG CALC (26.0-32.0); MEAN CORPUSCULAR HGB CONC 28.9 g/dL CAL (32.0-36.0); RED BLOOD COUNT 4.11 mill/uL (4.20-5.60); RED CELL DISTRI WIDTH 17.3 % (11.5-15.5)
[2021-01-01 06:22] LABS: ANION GAP 13 (6-22 (CALC)); BUN 28 mg/dL (8-23); BUN/CREATININE RATIO 33 (12-20 (CALC)); CARBON DIOXIDE 26 mmol/l (22-30); CHLORIDE 103 mmol/l (95-108); CREATININE 0.8 mg/dL (0.5-1.0); GFR > 60 ML/MIN (>=60 (CALC)); GFR FOR AFR.AMER. > 60 ML/MIN (>=60 (CALC)); POTASSIUM 4.2 mmol/l (3.5-5.1); SODIUM 138 mmol/l (137-146)
[2021-01-01 08:00] VITALS: BP 136/82
[2021-01-01] MEDS ORDERED: PREDNISONE10 MG PO (08:02)
[2021-01-01] MEDS ORDERED: ZITHROMAX250 MG PO (08:02)
[2021-01-01 10:30] VITALS: BP 130/76
== END 2021-01-01 11:54 | disposition home or self-care (01) ==
LOC: ED 21:07 → ED-I 22:39 → ED 22:52 → MS2 22:53
PROVIDERS: Emergency Medicine; Nurse Practitioner; ADMIT Internal Medicine; ATTEND Internal Medicine
DX: J43.9 Emphysema, unspecified (principal); R07.89 Other chest pain; J96.10 Chronic respiratory failure, unspecified whether with hypoxia or hypercapnia; I10 Essential (primary) hypertension; E11.9 Type 2 diabetes mellitus without complications; I25.10 Atherosclerotic heart disease of native coronary artery without angina pectoris; G89.4 Chronic pain syndrome; M19.90 Unspecified osteoarthritis, unspecified site; D64.9 Anemia, unspecified; F41.9 Anxiety disorder, unspecified; F32.9 Major depressive disorder, single episode, unspecified; I25.2 Old myocardial infarction; Z95.5 Presence of coronary angioplasty implant and graft; Z99.81 Dependence on supplemental oxygen; Z87.891 Personal history of nicotine dependence; Z20.822 Contact with and (suspected) exposure to COVID-19

== ENCOUNTER 2021-01-01 22:26 | Emergency (ER) | payer MEDICARE, MEDICAID ==
[~2021-01-01] VITALS: Ht 172.7 cm; Wt 107.0 kg
[~2021-01-01 22:26] MED LIST changes: +ABILIFY5 MG PO; +ACIPHEX20 M1 PO; +ALPRAZOLAM1 MG PO; +HYDROCHLOROT12.5 MG PO; +LOPRESSOR50 M1 PO; +MIRTAZAPINE30 M2 PO; +PROAIR HFA108 MCG/AC PO; +TIZANIDINE HCL4 MG PO; +TRELEGY ELLIPTA1 AER PO; +ZOCOR20 M1 PO
[2021-01-01 23:11] LABS: HEMATOCRIT 29.2 % (37.0-47.0); HEMOGLOBIN 8.5 g/dl (12.0-16.0); IMMATURE GRANULOCYTES 1.2 % (0.0-5.0); MEAN CELL VOLUME 78.1 fL CALC (80.0-100.0); MEAN CORPUSCULAR HGB 22.7 pG CALC (26.0-32.0); MEAN CORPUSCULAR HGB CONC 29.1 g/dL CAL (32.0-36.0); NEUT# 15.77 thou/uL (2.00-7.15); RED BLOOD COUNT 3.74 mill/uL (4.20-5.60); RED CELL DISTRI WIDTH 17.4 % (11.5-15.5)
[2021-01-01 23:29] LABS: ALBUMIN 3.7 g/dL (3.2-5.0); ALKALINE PHOSPHATASE 77 u/l (38-126); BILIRUBIN, TOTAL 0.2 mg/dL (0.0-1.4); BUN 28 mg/dL (8-23); BUN/CREATININE RATIO 29 (12-20 (CALC)); CARBON DIOXIDE 27 mmol/l (22-30); CHLORIDE 105 mmol/l (95-108); GFR 56 ML/MIN (>=60 (CALC)); GFR FOR AFR.AMER. > 60 ML/MIN (>=60 (CALC)); SGOT/AST 18 u/l (9-36); SODIUM 138 mmol/l (137-146); TOTAL PROTEIN 6.3 g/dL (6.3-8.2)
[2021-01-01 23:33] LABS: ANION GAP 9 (6-22 (CALC)); POTASSIUM 2.9 mmol/l (3.5-5.1)
[2021-01-01 23:41] LABS: MYOGLOBIN 73 ng/mL (0 - 62)
[2021-01-01 23:48] LABS: URINE BILIRUBIN - DIPSTICK NEGATIVE (NEGATIVE); URINE BLOOD DIPSTICK SMALL (NEGATIVE); URINE COLOR YELLOW; URINE GLUCOSE - DIPSTICK NEGATIVE (NEGATIVE); URINE KETONE NEGATIVE (NEGATIVE); URINE NITRITE - DIPSTICK NEGATIVE (Negative); URINE PH 5.5 (4.5-8.0); URINE PROTEIN - DIPSTICK NEGATIVE (NEG-TRACE); URINE UROBILINOGEN - DIPSTICK 0.2 E.U./dL (0.2)
[2021-01-01 23:56] LABS: URINE BACTERIA FEW hpf; URINE EPITHELIAL CELLS FEW EPI/hpf (0-FEW); URINE LEUK ESTERASE NEGATIVE (NEGATIVE); URINE WBC 0-2 WBC/hpf (0-5)
[2021-01-02 06:36] LABS: POTASSIUM 4.1 mmol/l (3.5-5.1)
[2021-01-02 07:24] VITALS: BP 157/84
== END 2021-01-02 07:27 | disposition home or self-care (01) ==
LOC: ED 22:26
PROVIDERS: Emergency Medicine
DX: J43.9 Emphysema, unspecified (principal); R07.9 Chest pain, unspecified; E87.6 Hypokalemia; I10 Essential (primary) hypertension; I25.10 Atherosclerotic heart disease of native coronary artery without angina pectoris; G89.4 Chronic pain syndrome; F41.9 Anxiety disorder, unspecified; I25.2 Old myocardial infarction; Z95.5 Presence of coronary angioplasty implant and graft

== ENCOUNTER 2021-04-15 21:54 | Observation (INO) | payer MEDICARE, MEDICAID ==
[~2021-04-15] VITALS: Ht 172.7 cm; Wt 115.0 kg
--- NOTE | 2021-04-15 22:08 | NUR ---
TRANSFERED FROM STRETCHER TO ROOM, APPEARS UNCOMFORTABLE
[2021-04-15 23:15] LABS: HEMATOCRIT 32.1 % (37.0-47.0); IMMATURE GRANULOCYTES 0.6 % (0.0-5.0); MEAN CELL VOLUME 79.7 fL CALC (80.0-100.0); MEAN CORPUSCULAR HGB 22.3 pG CALC (26.0-32.0); NEUT# 7.14 thou/uL (2.00-7.15); RED BLOOD COUNT 4.03 mill/uL (4.20-5.60); RED CELL DISTRI WIDTH 25.2 % (11.5-15.5)
--- NOTE | 2021-04-15 23:19 | NUR ---
PT RESTING IN THE ROOM NAD AND DENIES PAIN AT THIS TIME
[2021-04-15 23:31] LABS: ALBUMIN 3.7 g/dL (3.2-5.0); ALKALINE PHOSPHATASE 89 u/l (38-126); ANION GAP 11 (6-22 (CALC)); BILIRUBIN, TOTAL 0.5 mg/dL (0.0-1.4); BUN 17 mg/dL (8-23); BUN/CREATININE RATIO 27 (12-20 (CALC)); CARBON DIOXIDE 32 mmol/l (22-30); CHLORIDE 100 mmol/l (95-108); CREATININE 0.7 mg/dL (0.5-1.0); GFR > 60 ML/MIN (>=60 (CALC)); GFR FOR AFR.AMER. > 60 ML/MIN (>=60 (CALC)); POTASSIUM 3.4 mmol/l (3.5-5.1); SGOT/AST 20 u/l (9-36); SODIUM 139 mmol/l (137-146); TOTAL PROTEIN 6.7 g/dL (6.3-8.2)
[2021-04-15 23:43] LABS: MYOGLOBIN 27 ng/mL (0 - 62)
--- NOTE | 2021-04-16 00:52 | NUR ---
PT HAS BEEN ADVISED OF STATUS FOR ADMISSION
--- NOTE | 2021-04-16 01:45 | NUR ---
PT IS READY FOR ADMISSION TO THE FLOOR
--- NOTE | 2021-04-16 01:49 | NUR ---
TELEPHONE REPORT RECEIVED FROM Lynn LOVING RN IN ED, ROOM 273 PREPARED TO RECEIVE PT.
--- NOTE | 2021-04-16 02:07 | NUR ---
PT ARRIVES TO UNIT VIA STRETCHER, ACCOMPANIED BY Toby CONNELL RN. @ 0204. PT AMBULATORY TO BATHROOM AND BACK TO BED. ORIENTED TO UNIT AND ROOM. PT REQUESTS "SOMETHING TO EAT". SNACK PROVIDED BY Velia REYES CNA. CALL OHARA WITHIN REACH, AGREES TO CALL PRN.
[2021-04-16 02:10] VITALS: BP 148/85
--- NOTE | 2021-04-16 02:30 | NUR ---
ADMISSION AND ASSESMENT COMPLETE. PT RESPIRATIONS UNLABORED AT REST, LABORED WITH MINIMAL ACTIVITY. SPO2 98% ON 02 @ 2L/MIN VIA NC. SLIGHT WHEEZE B/L, CLEARED WITH COUGH. PT REPORTS NON-PRODUCTIVE COUGH. ONLY COUGHED WHEN ASKED DURING EXAM. PLAN OF CARE REVIEWED, PT VERBALIZES UNDERSTANDING. CALL OHARA WITHIN REACH, AGREES TO CALL PRN.
[2021-04-16] MEDS ORDERED: PROVENTIL108 MCG/AC IN (02:36)
[2021-04-16] MEDS ORDERED: TRELEGY ELLIPTA1 AER IN (02:38)
[2021-04-16] MEDS ORDERED: AMLODIPINE BESYL5 MG PO (02:39)
[2021-04-16] MEDS ORDERED: HYDROCHLOROT12.5 M1 PO (02:40)
--- NOTE | 2021-04-16 02:44 | NUR ---
WHEN ASKED FOR HOME MEDICATION LIST PT DENIES HAVING ONE. ASKED PATIENT IF SOMEONE COULD BRING IN MED LIST OR CALL WITH MED LIST, PT THEN PRODUCES FOLDED AND TORN MEDLIST FROM [facility]. DATED 2019. PT INSISTS LIST IS UP TO DATE AND ACCCURATE. PT VERIFIES EACH MED VERBALLY. MED REC INPUT PROVIDED BY PATIENT. RX CONSULT REQUESTED TO VERIFY ACCURACY.
--- NOTE | 2021-04-16 03:30 | NUR ---
LEFT CHEST PORT ACCESSED WITH 20G 1" NON-CORING PEREZ NEEDLE, DRESSING SECURED, ASEPTIC TECHNIQUE MAINTAINED. PORT FLUSHES EASILY AND HAS GOOD BLOOD RETURN. R-HAND IV SITE D/C'D, CATHETER INTACT. MORPHINE ADMINISTERED FOR C/O CHEST PAIN. SEE E-MAR.
[2021-04-16 04:32] VITALS: BP 130/77
--- NOTE | 2021-04-16 05:30 | NUR ---
AM LABS DRAWN FROM RIGHT CHEST PORT W/O DIFFICULTY. PORT FLUSHES EASILY AND HAS GOOD BLOOD RETURN. PORT HEPARIN LOCKED AFTER BLOOD DRAW PER POLICY.
[2021-04-16] MEDS ORDERED: OXYCODONE15 MG PO (07:21)
[2021-04-16] MEDS ORDERED: DULERA1 AE1 PO (07:22)
[2021-04-16] MEDS ORDERED: SPIRIVA HANDIHALER PO (07:22)
[2021-04-16] MEDS ORDERED: CLONAZEPAM2 MG PO (07:23)
[2021-04-16] MEDS ORDERED: ABILIFY10 M1 PO (07:23)
[2021-04-16] MEDS ORDERED: ALPRAZOLAM1 MG PO (07:23)
[2021-04-16] MEDS ORDERED: PAROXETINE20 MG PO (07:24)
[2021-04-16] MEDS ORDERED: MIRTAZAPINE15 MG PO (07:24)
[2021-04-16] MEDS ORDERED: SIMVASTATIN20 MG PO (07:24)
[2021-04-16] MEDS ORDERED: ISOSORBIDE MONO30 MG PO (07:25)
[2021-04-16] MEDS ORDERED: MONTELUKAST SOD10 MG PO (07:25)
[2021-04-16] MEDS ORDERED: LOPRESSOR25 MG PO (07:25)
[2021-04-16] MEDS ORDERED: DIOVAN160 MG PO (07:26)
[2021-04-16] MEDS ORDERED: RABEPRAZOLE SOD20 MG PO (07:26)
[2021-04-16] MEDS ORDERED: CLOPIDOGREL75 MG PO (07:26)
[2021-04-16] MEDS ORDERED: NORVASC PO (07:26)
[2021-04-16 07:50] VITALS: BP 133/77
--- NOTE | 2021-04-16 07:50 | NUR ---
ASSESSMENT IS COMPLETED: IV SITE IS FREE FROM REDNESS OR EDEMA. HR IS REG,PULSES ARE STRONG X4, ABD IS SOFT WITH ACTIVE BS. BREATH SOUNDS ARE WHEEZES, AND CLEAR. O2 @ 2LITERS WITH NC. USES ON AND OFF. TELE MONITOR. IN PLACE. CONTINUE TO OSBERVE AND MONITOR.
[2021-04-16 10:36] VITALS: BP 138/80
--- NOTE | 2021-04-16 12:30 | NUR ---
PT IS SITTING UP IN BED, VERY DROWSY. IV SITE IS FREE FROM REDNESS OR EDEMA. LAB WAS DRAWN. CONTINUE TO OSBERVE AND MONITOR.
[2021-04-16 15:34] VITALS: BP 128/70
--- NOTE | 2021-04-16 16:00 | NUR ---
PT IS RELAXING IN BED WITH NO DISTRESS NOTED.
--- NOTE | 2021-04-16 17:45 | NUR ---
ABLE TO DRAW FROM THE PORT USING A TOURNIQUET ON THE AC.FLUSHES WELL. NO EDEMA NOTE.D
[2021-04-16 19:00] VITALS: BP 140/74
--- NOTE | 2021-04-16 19:30 | NUR ---
PATIENT SITTING UP IN THE BED TALKING ON THE PHONE. PATIENT WITH NO COMPLAINTS AT THIS TIME. CALL LIGHT IN REACH. WILL CONT TO MONITOR.
--- NOTE | 2021-04-16 21:00 | NUR ---
PATIENT RESTING IN BED-STILL ON THE PHONE. PATIENT C/O CHEST PAIN-7/10 ON PAIN SCALE. MEDICATED WITH ROXICODONE 15MG PO ORDERED FOR PAIN. MEDICATED WITH SOLU-MEDROL VIA RIGHT UPPER CHEST PORT ORDERED. PORT FLUSHED PER PROTOCOL WITH SALINE AND HEP CHIKIS. GOOD BLOOD RETURN AND FLUSHES FREELY, SITE IS HEALTHY AT THIS TIME. TELE MONITOR IN PLACE. LAST READING SR-92. LUNGS ARE CLEAR. ABD IS SOFT WITH BS+. PROVIDED WITH SNACKS PER PATIENT REQUEST. CALL LIGHT IN REACH. WILL CONT TO MONITOR.
--- NOTE | 2021-04-16 23:58 | NUR ---
PATIENT RESTING IN BED-DOES NOT APPEAR IN ANY DISTRESS-WATCHING TV AND ON HER PHONE. REQUESTING PAIN MEDS AGAIN-TOO EARLY-PATIENT ADVISED OF SUCH. MEDICATED WITH XANAX 1MG PO FOR ANXIETY. CONT TO ASK FOR SNACKS. CALL LIGHT IN REACH. WILL CONT TO MONITOR.
[2021-04-17] VITALS: BP 132/72
[2021-04-17 01:03] LABS: URINE BILIRUBIN - DIPSTICK NEGATIVE (NEGATIVE); URINE BLOOD DIPSTICK TRACE-LYSED (NEGATIVE); URINE COLOR YELLOW; URINE GLUCOSE - DIPSTICK 250 mg/dL (NEGATIVE); URINE KETONE TRACE mg/dL (NEGATIVE); URINE LEUK ESTERASE NEGATIVE (NEGATIVE); URINE PH 5.5 (4.5-8.0); URINE PROTEIN - DIPSTICK NEGATIVE (NEG-TRACE); URINE SPECIFIC GRAVITY >=1.030; URINE UROBILINOGEN - DIPSTICK 0.2 E.U./dL (0.2)
[2021-04-17 01:06] LABS: URINE NITRITE - DIPSTICK NEGATIVE (Negative)
[2021-04-17 01:17] LABS: URINE BACTERIA FEW hpf; URINE SQUAMOUS EPITHELIAL CELL MANY EPI/hpf (0-FEW); URINE WBC 0-2 WBC/hpf (0-5)
[2021-04-17 04:00] VITALS: BP 132/79
--- NOTE | 2021-04-17 04:16 | NUR ---
PATIENT RESTING IN BED AT THIS TIME WITH O2 VIA NASAL CANNULA IN PLACE. O2 SAT AT THIS TIME IS 99%. EYES ARE CLOSED AND RESPS ARE EVEN. LAB WORK DRAWN FROM RIGHT UPPER CHEST PORT-GOOD BLOOD RETURN AND NO PROBLEM WITH LAB DRAW. PORT FLUSHED WITH NS AND HEP CHIKIS PER PROTOCOL. SITE REMAINS HEALTHY. TELE MONITOR IN PLACE. CALL LIGHT IN REACH. WILL CONT TO MONITOR.
[2021-04-17 05:35] LABS: HEMATOCRIT 31.5 % (37.0-47.0); HEMOGLOBIN 8.9 g/dl (12.0-16.0); MEAN CELL VOLUME 80.2 fL CALC (80.0-100.0); MEAN CORPUSCULAR HGB 22.6 pG CALC (26.0-32.0); MEAN CORPUSCULAR HGB CONC 28.3 g/dL CAL (32.0-36.0); RED BLOOD COUNT 3.93 mill/uL (4.20-5.60)
[2021-04-17 06:02] LABS: ANION GAP 10 (6-22 (CALC)); BUN 18 mg/dL (8-23); BUN/CREATININE RATIO 26 (12-20 (CALC)); CARBON DIOXIDE 31 mmol/l (22-30); CHLORIDE 98 mmol/l (95-108); CREATININE 0.7 mg/dL (0.5-1.0); GFR > 60 ML/MIN (>=60 (CALC)); GFR FOR AFR.AMER. > 60 ML/MIN (>=60 (CALC)); POTASSIUM 3.8 mmol/l (3.5-5.1); SODIUM 136 mmol/l (137-146)
--- NOTE | 2021-04-17 06:36 | NUR ---
PT RESTING COMDFOPRTABLY. NAD. VSS. OUTDOOR ADVENTURE GUIDES TO MONITOR.
[2021-04-17 07:50] VITALS: BP 134/85
--- NOTE | 2021-04-17 07:50 | NUR ---
ASSESSMENT IS COMPLETED: IV SITE IS FREE FROM REDNESS OR EDEMA. HR IS REG,PULSES ARE STRONG X4, ABD IS SOFT WITH ACTIVE BS. BREATH SOUNDS ARE WHEEZING AND DIMINISHED. TELE MONITOR IN PLACE. CONTINUE TO OBSERVE AND MONITOR.
[2021-04-17] MEDS ORDERED: PREDNISONE10 MG PO (10:27)
[2021-04-17 11:17] VITALS: BP 145/79
--- NOTE | 2021-04-17 12:30 | NUR ---
IV SITE DISCONTINUED CATHETER INTACT. NO REDNESS OR EDEMA. DISCONTINUED BY FAITH DIA MANAGER, PT TOLERATED WELL. PT AMBULATED OFF THE UNIT AFTER RECIEVING DISCHARGE INSTRUCTIONS .
--- NOTE | 2021-04-17 12:50 | NUR ---
Discharge instructions given. Patient verbalizes understanding of same. Discharged in stable condition via Ambulatory to Home with family. All belongings sent with pt.
== END 2021-04-17 12:35 | disposition home or self-care (01) ==
LOC: ED 21:54 → ED-I 23:39 → ED 04-16 00:07 → MS2 04-16 00:08
PROVIDERS: Emergency Medicine; Nurse Practitioner; ADMIT Internal Medicine; ATTEND Internal Medicine
DX: R07.9 Chest pain, unspecified (principal); J43.9 Emphysema, unspecified; D50.9 Iron deficiency anemia, unspecified; I25.10 Atherosclerotic heart disease of native coronary artery without angina pectoris; I10 Essential (primary) hypertension; J96.10 Chronic respiratory failure, unspecified whether with hypoxia or hypercapnia; G89.4 Chronic pain syndrome; F32.9 Major depressive disorder, single episode, unspecified; F41.9 Anxiety disorder, unspecified; I25.2 Old myocardial infarction; Z87.891 Personal history of nicotine dependence; Z95.5 Presence of coronary angioplasty implant and graft; Z99.81 Dependence on supplemental oxygen; Z20.822 Contact with and (suspected) exposure to COVID-19
CPT/HCPCS: G0378

== ENCOUNTER 2021-05-15 21:59 | Emergency (ER) | payer MEDICARE, MEDICAID ==
[~2021-05-15] VITALS: Ht 172.7 cm; Wt 111.0 kg
[~2021-05-15 21:59] MED LIST changes: +DULERA1 AE1 PO; +ISOSORBIDE MONO30 MG PO; +MIRTAZAPINE15 MG PO; +MONTELUKAST SOD10 MG PO; +PAROXETINE20 MG PO; +PROVENTIL108 MCG/AC IN; +SPIRIVA HANDIHALER PO; +TRELEGY ELLIPTA1 AER IN
--- NOTE | 2021-05-15 22:38 | NUR ---
BREATHING TREATMENT GIVEN BACK TO BACK.
[2021-05-15 23:30] LABS: HEMATOCRIT 36.1 % (37.0-47.0); HEMOGLOBIN 10.4 g/dl (12.0-16.0); IMMATURE GRANULOCYTES 0.5 % (0.0-5.0); MEAN CELL VOLUME 79.7 fL CALC (80.0-100.0); MEAN CORPUSCULAR HGB CONC 28.8 g/dL CAL (32.0-36.0); NEUT# 4.51 thou/uL (2.00-7.15); RED BLOOD COUNT 4.53 mill/uL (4.20-5.60); RED CELL DISTRI WIDTH 22.1 % (11.5-15.5)
[2021-05-15 23:36] LABS: ALBUMIN 3.5 g/dL (3.2-5.0); ALKALINE PHOSPHATASE 79 u/l (38-126); ANION GAP 11 (6-22 (CALC)); BUN 15 mg/dL (8-23); BUN/CREATININE RATIO 21 (12-20 (CALC)); CARBON DIOXIDE 29 mmol/l (22-30); CHLORIDE 100 mmol/l (95-108); CREATININE 0.7 mg/dL (0.5-1.0); GFR > 60 ML/MIN (>=60 (CALC)); GFR FOR AFR.AMER. > 60 ML/MIN (>=60 (CALC)); SGOT/AST 27 u/l (9-36); SODIUM 136 mmol/l (137-146); TOTAL PROTEIN 6.4 g/dL (6.3-8.2)
[2021-05-15 23:39] LABS: BILIRUBIN, TOTAL 0.2 mg/dL (0.0-1.4)
[2021-05-15 23:48] LABS: MYOGLOBIN 28 ng/mL (0 - 62)
[2021-05-15 23:49] LABS: PROTHROMBIN TIME 9.9 SECONDS (9.0-12.5)
[2021-05-15 23:57] LABS: D-DIMER 2.39 mg/L (0.19-0.60)
[2021-05-16] MEDS ORDERED: DOXYCYCL HYC100 MG PO (00:14)
[2021-05-16] MEDS ORDERED: PREDNISONE50 MG PO (00:14)
[2021-05-16 05:54] VITALS: BP 163/75
== END 2021-05-16 07:40 | disposition home or self-care (01) ==
LOC: ED 21:59
PROVIDERS: Family Medicine
DX: J43.9 Emphysema, unspecified (principal); I10 Essential (primary) hypertension; F41.9 Anxiety disorder, unspecified; I25.2 Old myocardial infarction; F17.200 Nicotine dependence, unspecified, uncomplicated; Z95.5 Presence of coronary angioplasty implant and graft; Z86.14 Personal history of Methicillin resistant Staphylococcus aureus infection; Z20.822 Contact with and (suspected) exposure to COVID-19

== ENCOUNTER 2021-06-22 16:13 | Observation (INO) | payer MEDICARE, MEDICAID ==
[~2021-06-22] VITALS: Ht 172.7 cm; Wt 111.0 kg
[~2021-06-22 16:13] MED LIST changes: +PREDNISONE50 MG PO
--- NOTE | 2021-06-22 16:13 | NUR ---
TO ROOM BY EMS FOR TRIAGE
[2021-06-22 16:48] LABS: HEMATOCRIT 37.9 % (37.0-47.0); HEMOGLOBIN 11.1 g/dl (12.0-16.0); MEAN CELL VOLUME 79.6 fL CALC (80.0-100.0); MEAN CORPUSCULAR HGB 23.3 pG CALC (26.0-32.0); MEAN CORPUSCULAR HGB CONC 29.3 g/dL CAL (32.0-36.0); NEUT# 4.16 thou/uL (2.00-7.15); RED BLOOD COUNT 4.76 mill/uL (4.20-5.60); RED CELL DISTRI WIDTH 18.4 % (11.5-15.5)
[2021-06-22 17:00] LABS: ALBUMIN 3.9 g/dL (3.2-5.0); ALKALINE PHOSPHATASE 89 u/l (38-126); ANION GAP 10 (6-22 (CALC)); BUN 13 mg/dL (8-23); BUN/CREATININE RATIO 20 (12-20 (CALC)); CARBON DIOXIDE 26 mmol/l (22-30); CHLORIDE 106 mmol/l (95-108); CREATININE 0.7 mg/dL (0.5-1.0); GFR > 60 ML/MIN (>=60 (CALC)); GFR FOR AFR.AMER. > 60 ML/MIN (>=60 (CALC)); LIPASE 66 u/l (23-300); POTASSIUM 3.4 mmol/l (3.5-5.1); SGOT/AST 23 u/l (9-36); SODIUM 139 mmol/l (137-146); TOTAL PROTEIN 7.1 g/dL (6.3-8.2)
[2021-06-22 17:03] LABS: BILIRUBIN, TOTAL 0.1 mg/dL (0.0-1.4)
--- NOTE | 2021-06-22 17:30 | NUR ---
PT RESTING, NO CONCERNS VOICED. STABLE ON MONITOR. CALL LIGHT WITHIN REACH.
--- NOTE | 2021-06-22 18:22 | NUR ---
PT REMEDICATED FOR PAIN, STABLE ON MONITOR. NO OTHER CONCERNS VOICED.
[2021-06-22 18:38] LABS: URINE BILIRUBIN - DIPSTICK NEGATIVE (NEGATIVE); URINE BLOOD DIPSTICK SMALL (NEGATIVE); URINE CLARITY CLEAR; URINE COLOR YELLOW; URINE GLUCOSE - DIPSTICK NEGATIVE (NEGATIVE); URINE KETONE NEGATIVE (NEGATIVE); URINE LEUK ESTERASE NEGATIVE (Negative); URINE NITRITE - DIPSTICK NEGATIVE (Negative); URINE PH 5.5 (4.5-8.0); URINE PROTEIN - DIPSTICK NEGATIVE (NEG-TRACE); URINE SPECIFIC GRAVITY >=1.030; URINE UROBILINOGEN - DIPSTICK 0.2 E.U./dL (0.2)
[2021-06-22 18:43] LABS: URINE SQUAMOUS EPITHELIAL CELL FEW EPI/hpf (0-FEW)
--- NOTE | 2021-06-22 19:01 | NUR ---
W/D SKIN ST NO ST T CHANGES NO ECTOPY CHEERFUL AND IN NAD
--- NOTE | 2021-06-22 20:54 | NUR ---
W/D SKIN NO COUGH NO SOB NO CP.SR NO ECTOPY
--- NOTE | 2021-06-22 21:05 | NUR ---
PHONE REPORT TO NURSE CARTY ON MS
--- NOTE | 2021-06-22 21:10 | NUR ---
PT TRANSPORTED VIA STRETCHER O2 AND TELE TO 262 IN IMPROVED STABLE CONDITION
[2021-06-22 21:15] VITALS: BP 155/90
--- NOTE | 2021-06-22 21:40 | NUR ---
PT RECEIVED FROM ED TO ROOM 262. ARRIVES VIA STRETCHER ACCOMPANIED BY LG RN. PT AMBULATORY TO BED. GAIT UNSTEADY. PT DENIES PAIN AT THIS TIME. ORIENTED TO UNIT, ROOM, CALL [facility], LIGHTS, TV. ICE WATER AND FOOD PROVIDED. CALL [facility] WITHIN REACH. AGREES TO CALL PRN.
--- NOTE | 2021-06-22 21:43 | NUR ---
PHYSICAL ASSESMENT COMPLETE. PT CURRENTLY DENIES PAIN OR DISCOMFORT. SCHEDULED MEDICATIONS AND PRN MEDICATION ADMINISTERED, SEE E-MAR. PT DENIES ANY NEEDS AT THIS TIME. PLAN OF CARE REVIEWED, PT DENIES QUESTIONS, VERBALIZES UNDERSTANDING. ITEMS WITHIN REACH, BED LOCKED IN LOW POSITION W/ BEDRAILS UP X2. CALL [facility] WITHIN REACH, AGREES TO CALL PRN.
[2021-06-22 23:30] VITALS: BP 137/77
--- NOTE | 2021-06-23 00:50 | NUR ---
PT LAYING IN BED WITH EYES CLOSED, APPEARS TO BE SLEEPING, APPEARS COMFORTABLE AND IN NO DISTRESS. RESPIRATIONS REGULAR AND UNLABORED. ITEMS REMAIN WITHIN REACH, CALL [facility] REMAINS WITHIN REACH. BED REMAINS LOCKED AND IN LOW POSITION WITH BEDRAILS UP X2. WILL CONTINUE TO MONITOR.
--- NOTE | 2021-06-23 03:14 | NUR ---
NOTE: DR WARREN CALLED AT APPROXIMATELY 2200 TO INSURE REPEAT TROPONINS WERE IN PLACE FOR PT AT 2200 AND 2 MORE Q6 AT 0400 AND 1000 ON 06/23/21. I LOOKED UNDER LABS AND SAW 3 ADDITIONAL TROPONINS SCHEDULED, THE FIRST SCHEDULED AT 2200. IN MY CHART REVIEW LATER IN THE NIGHT I COULD NOT FIND THE RESULTS FOR THE 2ND TROPOININ AND NOTED THAT THE TROP ORDERS HAD BEEN PLACED TO START ON 06/23/21 AT 2200; THE RIGHT TIME, BUT WRONG DATE. I IMMEDIATELY ORDERED A STAT TROPONIN, CALLED THE LAB TO GET A BLOOD DRAW AND THEN RE-SCHEDULED THE FOLLOW-UP TROPONINS. I ALSO VERIFIED FUTURE TROPONIN LABRATORY DRAWS WITH THE DIGITAL COMPUTER OPERATOR
[2021-06-23 03:21] LABS: HEMATOCRIT 38.9 % (37.0-47.0); HEMOGLOBIN 11.3 g/dl (12.0-16.0); MEAN CELL VOLUME 80.4 fL CALC (80.0-100.0); MEAN CORPUSCULAR HGB 23.3 pG CALC (26.0-32.0); RED BLOOD COUNT 4.84 mill/uL (4.20-5.60); RED CELL DISTRI WIDTH 18.3 % (11.5-15.5)
[2021-06-23 03:30] VITALS: BP 141/81
[2021-06-23 03:38] LABS: ANION GAP 9 (6-22 (CALC)); BUN 12 mg/dL (8-23); BUN/CREATININE RATIO 16 (12-20 (CALC)); CALCULATED LDLCHOLESTEROL 102 mg/dL (62-129 (CALC)); CARBON DIOXIDE 29 mmol/l (22-30); CHLORIDE 106 mmol/l (95-108); CHOLESTEROL HDL RATIO 5.2 (<4.4 (CALC)); CREATININE 0.7 mg/dL (0.5-1.0); GFR > 60 ML/MIN (>=60 (CALC)); GFR FOR AFR.AMER. > 60 ML/MIN (>=60 (CALC)); HDL CHOLESTEROL 34 mg/dL (>=40); POTASSIUM 3.6 mmol/l (3.5-5.1); SODIUM 141 mmol/l (137-146); TOTAL CHOLESTEROL 177 mg/dl (0-199); TOTAL TRIGLYCERIDES 205 mg/dl (30-149); VLDL CHOLESTROL 41 mg/dl (1-41 (CALC))
--- NOTE | 2021-06-23 04:09 | NUR ---
PT RESTING IN BED, NO SIGNS OF DISTRESS NOTED, RESP EVEN AND UNLABORED. PT VOICES NO NEEDS OR COMPLAINTS AT THIS TIME. CALL LIGHT IN REACH, CONTINUE TO MONITOR.
[2021-06-23 07:39] VITALS: BP 140/88
--- NOTE | 2021-06-23 08:00 | NUR ---
PT SLEEPING UPON ENTERING ROOM. PT IS ALERT AND ORIENTED. VITALS AND ASSESSMENT DONE. S1 AND S2 NOTED. LUNG SOUNDS CLEAR. BOWEL SOUNDS ACTIVE IN ALL 4 QUADRANTS. PEDAL PULSES EQUALLY AND BILATRALLY STRONG. NO DISTRESS NOTED. CALL LIGHT WITHIN REACH.
[2021-06-23 10:38] VITALS: BP 140/79
--- NOTE | 2021-06-23 12:00 | NUR ---
PT IN BED. NO DISTRESS NOTED CALL LIGHT WITHIN REACH.
--- NOTE | 2021-06-23 12:39 | NUR ---
UNABLE TO OBTAIN BLOO RETRUN FROM ACCESSED PORT, ALTHOUGH IT DID FLUSH WITH EASE. PT REPORTS TO HAVE THIS "ISSUE IN THE PAST". VENIPUNCTURE TO , SAMPLE LABELED ,INITIALED, AND TIMED. PT TOLERATED WELL. CALL LIGHT WITHIN REACH.
--- NOTE | 2021-06-23 13:03 | NUR ---
PT BEING TAKEN DOWN FOR AN RADIOLOGY. PT IN STABLE CONDITION.
--- NOTE | 2021-06-23 13:14 | NUR ---
PT RETURNED FROM RADIOLOGY IN STABLE CONDITION. NO DISTRESS NOTED. CALL LIGHT WITHIN REACH.
[2021-06-23 15:07] VITALS: BP 117/68
--- NOTE | 2021-06-23 16:25 | NUR ---
PORT REMOVED AND REACCESSED BY J Carlos ANN RN. WITH REACCESSED PORT, BLOOD RETURN WAS SEEN, PORT FLUSHED WITH NS AND HEPARIN PER PROTOCOL. PT TOLERATED WELL. PORT DEACCESSED. PT TOLERATED WELL. OCCLUSIVE DRESSING APPLIED. PORT DEACCESSED BY J Carlos ANN RN.
--- NOTE | 2021-06-23 17:25 | NUR ---
Discharge instructions given. Patient verbalizes understanding of same. Discharged in stable condition via Wheelchair to Home with staff. All belongings sent with pt.
== END 2021-06-23 17:26 | disposition home or self-care (01) ==
LOC: ED 16:13 → ED-I 16:20 → ED 16:20 → ED-I 20:01 → ED 20:23 → MS2 20:42
PROVIDERS: ADMIT Hospitalist; ATTEND Hospitalist
DX: R07.9 Chest pain, unspecified (principal); I10 Essential (primary) hypertension; J43.9 Emphysema, unspecified; J96.10 Chronic respiratory failure, unspecified whether with hypoxia or hypercapnia; I25.10 Atherosclerotic heart disease of native coronary artery without angina pectoris; G89.4 Chronic pain syndrome; F32.9 Major depressive disorder, single episode, unspecified; F41.9 Anxiety disorder, unspecified; I25.2 Old myocardial infarction; Z99.81 Dependence on supplemental oxygen; Z87.891 Personal history of nicotine dependence; Z95.5 Presence of coronary angioplasty implant and graft; Z20.822 Contact with and (suspected) exposure to COVID-19
CPT/HCPCS: G0378

== ENCOUNTER 2021-07-16 19:17 | Emergency (ER) | payer MEDICARE, MEDICAID ==
[~2021-07-16] VITALS: Ht 172.7 cm; Wt 110.0 kg
[~2021-07-16 19:17] MED LIST changes: +METOPROLOL TART75 MG PO; -MIRTAZAPINE15 MG PO; +OXYCODONE20 M1 PO; +REMERON30 MG PO
[2021-07-16 21:29] LABS: HEMATOCRIT 37.4 % (37.0-47.0); HEMOGLOBIN 11.2 g/dl (12.0-16.0); IMMATURE GRANULOCYTES 0.1 % (0.0-5.0); MEAN CELL VOLUME 79.2 fL CALC (80.0-100.0); MEAN CORPUSCULAR HGB 23.7 pG CALC (26.0-32.0); MEAN CORPUSCULAR HGB CONC 29.9 g/dL CAL (32.0-36.0); NEUT# 5.28 thou/uL (2.00-7.15); RED BLOOD COUNT 4.72 mill/uL (4.20-5.60); RED CELL DISTRI WIDTH 17.5 % (11.5-15.5)
[2021-07-16 21:43] LABS: ALBUMIN 3.8 g/dL (3.2-5.0); ALKALINE PHOSPHATASE 89 u/l (38-126); ANION GAP 10 (6-22 (CALC)); BUN 18 mg/dL (8-23); BUN/CREATININE RATIO 27 (12-20 (CALC)); CARBON DIOXIDE 28 mmol/l (22-30); CHLORIDE 105 mmol/l (95-108); CREATININE 0.7 mg/dL (0.5-1.0); GFR > 60 ML/MIN (>=60 (CALC)); GFR FOR AFR.AMER. > 60 ML/MIN (>=60 (CALC)); LIPASE 63 u/l (23-300); POTASSIUM 3.2 mmol/l (3.5-5.1); SGOT/AST 22 u/l (9-36); SODIUM 139 mmol/l (137-146); TOTAL PROTEIN 6.9 g/dL (6.3-8.2)
[2021-07-16 21:55] LABS: MYOGLOBIN 24 ng/mL (0 - 62)
[2021-07-16 23:34] LABS: URINE BILIRUBIN - DIPSTICK NEGATIVE (NEGATIVE); URINE BLOOD DIPSTICK SMALL (NEGATIVE); URINE COLOR YELLOW; URINE GLUCOSE - DIPSTICK NEGATIVE (NEGATIVE); URINE KETONE NEGATIVE (NEGATIVE); URINE PROTEIN - DIPSTICK NEGATIVE (NEG-TRACE); URINE SPECIFIC GRAVITY 1.015; URINE UROBILINOGEN - DIPSTICK 0.2 E.U./dL (0.2)
[2021-07-16 23:43] LABS: URINE NITRITE - DIPSTICK NEGATIVE (Negative)
[2021-07-16 23:44] LABS: URINE LEUK ESTERASE NEGATIVE (NEGATIVE)
[2021-07-16 23:45] LABS: URINE BACTERIA FEW hpf; URINE EPITHELIAL CELLS FEW EPI/hpf (0-FEW)
[2021-07-17 07:11] VITALS: BP 188/90
[2021-09-15] MEDS ORDERED: FLUOXETINE40 MG PO (21:18)
[2021-09-16] MEDS ORDERED: DOXYCYCL HYC100 MG PO (10:42)
[2021-09-16] MEDS ORDERED: PREDNISONE20 MG PO (10:42)
== END 2021-07-17 07:23 | disposition home or self-care (01) ==
LOC: ED 19:17
PROVIDERS: Emergency Medicine
DX: R07.9 Chest pain, unspecified (principal); J43.9 Emphysema, unspecified; I10 Essential (primary) hypertension; I25.10 Atherosclerotic heart disease of native coronary artery without angina pectoris; F41.9 Anxiety disorder, unspecified; I25.2 Old myocardial infarction; F17.200 Nicotine dependence, unspecified, uncomplicated; Z86.16 Personal history of COVID-19; Z95.5 Presence of coronary angioplasty implant and graft; Z20.822 Contact with and (suspected) exposure to COVID-19

== ENCOUNTER 2021-11-05 21:09 | Emergency (ER) | payer MEDICARE, MEDICAID ==
[~2021-11-05] VITALS: Ht 172.7 cm; Wt 109.0 kg
[~2021-11-05 21:09] MED LIST changes: +FLUOXETINE40 MG PO; +PREDNISONE20 MG PO
[2021-11-05 22:18] LABS: HEMATOCRIT 37.7 % (37.0-47.0); HEMOGLOBIN 11.4 g/dl (12.0-16.0); IMMATURE GRANULOCYTES 0.1 % (0.0-5.0); MEAN CELL VOLUME 78.1 fL CALC (80.0-100.0); MEAN CORPUSCULAR HGB 23.6 pG CALC (26.0-32.0); MEAN CORPUSCULAR HGB CONC 30.2 g/dL CAL (32.0-36.0); NEUT# 5.88 thou/uL (2.00-7.15); RED BLOOD COUNT 4.83 mill/uL (4.20-5.60); RED CELL DISTRI WIDTH 17.7 % (11.5-15.5)
[2021-11-05 22:29] LABS: ALBUMIN 3.8 g/dL (3.2-5.0); ALKALINE PHOSPHATASE 93 u/l (38-126); BUN 16 mg/dL (8-23); BUN/CREATININE RATIO 20 (12-20 (CALC)); CHLORIDE 100 mmol/l (95-108); CREATININE 0.8 mg/dL (0.5-1.0); GFR > 60 ML/MIN (>=60 (CALC)); GFR FOR AFR.AMER. > 60 ML/MIN (>=60 (CALC)); SGOT/AST 21 u/l (9-36); SODIUM 139 mmol/l (137-146); TOTAL PROTEIN 7.2 g/dL (6.3-8.2)
[2021-11-05 22:31] LABS: ANION GAP 6 (6-22 (CALC)); BILIRUBIN, TOTAL 0.2 mg/dL (0.0-1.4); CARBON DIOXIDE 36 mmol/l (22-30); POTASSIUM 3.2 mmol/l (3.5-5.1)
[2021-11-05 22:35] VITALS: BP 108/58
[2021-11-05 22:41] LABS: MYOGLOBIN 21 ng/mL (0 - 62)
--- NOTE | 2021-11-05 23:55 | NUR ---
PT STATES SHE CAN GO HOME AND TAKE HER OWN PAIN MEDICATION AND SHE ISN'T GOING TO STAY IN THE HOSPITAL. Patient decides to leave AMA. Multiple attempts made to ecourage patient to remain here for continued treatment. Explained to patient all risks of leaving against medical advice including . Pt verbalized understanding of all risks. Pt also encouraged to return to [facility] at any time, especially if symptoms continue or become worse. Pt verbalized understanding. AMBULATED OFF UNIT WITH STEADY GAIT.
== END 2021-11-05 23:55 | disposition left against medical advice (07) ==
LOC: ED 21:09 → ED-I 23:28 → ED 23:55
PROVIDERS: Emergency Medicine
DX: R07.9 Chest pain, unspecified (principal); J43.9 Emphysema, unspecified; I10 Essential (primary) hypertension; F41.9 Anxiety disorder, unspecified; I25.2 Old myocardial infarction; F17.210 Nicotine dependence, cigarettes, uncomplicated; Z91.19 Patient's noncompliance with other medical treatment and regimen; Z95.5 Presence of coronary angioplasty implant and graft; Z86.16 Personal history of COVID-19; Z20.822 Contact with and (suspected) exposure to COVID-19

== ENCOUNTER 2021-12-05 21:24 | Emergency (ER) | payer MEDICARE, MEDICAID ==
[~2021-12-05] VITALS: Ht 172.7 cm; Wt 106.8 kg
[2021-12-05 23:04] LABS: HEMATOCRIT 37.2 % (37.0-47.0); HEMOGLOBIN 11.2 g/dl (12.0-16.0); IMMATURE GRANULOCYTES 0.1 % (0.0-5.0); MEAN CELL VOLUME 79.8 fL CALC (80.0-100.0); MEAN CORPUSCULAR HGB CONC 30.1 g/dL CAL (32.0-36.0); NEUT# 5.38 thou/uL (2.00-7.15); RED BLOOD COUNT 4.66 mill/uL (4.20-5.60); RED CELL DISTRI WIDTH 17.9 % (11.5-15.5)
[2021-12-05 23:15] LABS: ALBUMIN 3.7 g/dL (3.2-5.0); ALKALINE PHOSPHATASE 90 u/l (38-126); ANION GAP 6 (6-22 (CALC)); BUN 18 mg/dL (8-23); BUN/CREATININE RATIO 22 (12-20 (CALC)); CARBON DIOXIDE 34 mmol/l (22-30); CHLORIDE 103 mmol/l (95-108); CREATININE 0.8 mg/dL (0.5-1.0); GFR > 60 ML/MIN (>=60 (CALC)); GFR FOR AFR.AMER. > 60 ML/MIN (>=60 (CALC)); LIPASE 50 u/l (23-300); POTASSIUM 3.4 mmol/l (3.5-5.1); SGOT/AST 25 u/l (9-36); SODIUM 141 mmol/l (137-146)
[2021-12-05 23:24] LABS: BILIRUBIN, TOTAL 0.3 mg/dL (0.0-1.4)
[2021-12-05 23:27] LABS: MYOGLOBIN 24 ng/mL (0 - 62)
[2021-12-06 03:44] VITALS: BP 128/66
== END 2021-12-06 04:04 | disposition home or self-care (01) ==
LOC: ED 21:24
PROVIDERS: Emergency Medicine
DX: R07.9 Chest pain, unspecified (principal); I10 Essential (primary) hypertension; I25.10 Atherosclerotic heart disease of native coronary artery without angina pectoris; J43.9 Emphysema, unspecified; F41.9 Anxiety disorder, unspecified; I25.2 Old myocardial infarction; Z95.5 Presence of coronary angioplasty implant and graft; Z86.16 Personal history of COVID-19; F17.200 Nicotine dependence, unspecified, uncomplicated

== ENCOUNTER 2022-02-11 18:43 | Emergency (ER) | payer MEDICARE, MEDICAID ==
[2022-02-11] VITALS (9 sets, daily range): BP systolic 112–140; BP diastolic 66–87
[~2022-02-11] VITALS: Ht 172.7 cm; Wt 100.0 kg
== END 2022-02-11 23:40 | disposition home or self-care (01) ==
LOC: ED 18:43
DX: T82.524A Displacement of infusion catheter, initial encounter (principal); R78.81 Bacteremia; I10 Essential (primary) hypertension; I25.2 Old myocardial infarction; J43.9 Emphysema, unspecified; F41.9 Anxiety disorder, unspecified; F17.200 Nicotine dependence, unspecified, uncomplicated; Y83.8 Other surgical procedures as the cause of abnormal reaction of the patient, or of later complication, without mention of misadventure at the time of the procedure; Z95.5 Presence of coronary angioplasty implant and graft; Z86.16 Personal history of COVID-19; Z79.2 Long term (current) use of antibiotics

== ENCOUNTER 2022-11-04 18:31 | Observation (INO) | payer MEDICARE, MEDICAID ==
[2022-11-04] VITALS (8 sets, daily range): BP systolic 108–148; BP diastolic 52–84
[~2022-11-04] VITALS: Ht 172.7 cm; Wt 92.7 kg
[2022-11-04 19:41] LABS: HEMATOCRIT 38.9 % (37.0-47.0); HEMOGLOBIN 12.2 g/dl (12.0-16.0); IMMATURE GRANULOCYTES 0.1 % (0.0-5.0); MEAN CELL VOLUME 79.6 fL CALC (80.0-100.0); MEAN CORPUSCULAR HGB 24.9 pG CALC (26.0-32.0); MEAN CORPUSCULAR HGB CONC 31.4 g/dL CAL (32.0-36.0); NEUT# 4.76 thou/uL (2.00-7.15); RED BLOOD COUNT 4.89 mill/uL (4.20-5.60)
[2022-11-04 19:58] LABS: ALKALINE PHOSPHATASE 76 u/l (38-126); ANION GAP 10 (6-22 (CALC)); BILIRUBIN, TOTAL 0.3 mg/dL (0.0-1.4); BUN 13 mg/dL (8-23); BUN/CREATININE RATIO 18 (12-20 (CALC)); CARBON DIOXIDE 30 mmol/l (22-30); CHLORIDE 104 mmol/l (95-108); CREATININE 0.7 mg/dL (0.5-1.0); GFR FOR AFR.AMER. > 60 ML/MIN (>=60 (CALC)); GFR OTHER RACES > 60 ML/MIN (>=60 (CALC)); SGOT/AST 29 u/l (9-36); SODIUM 140 mmol/l (137-146); TOTAL PROTEIN 7.4 g/dL (6.3-8.2)
[2022-11-04 20:02] LABS: POTASSIUM 4.1 mmol/l (3.5-5.1)
[2022-11-05 00:18] VITALS: BP 154/68
[2022-11-05 04:20] VITALS: BP 117/60
[2022-11-05 05:54] LABS: HEMATOCRIT 38.5 % (37.0-47.0); HEMOGLOBIN 11.9 g/dl (12.0-16.0); IMMATURE GRANULOCYTES 0.1 % (0.0-5.0); MEAN CELL VOLUME 80.9 fL CALC (80.0-100.0); MEAN CORPUSCULAR HGB CONC 30.9 g/dL CAL (32.0-36.0); NEUT# 4.56 thou/uL (2.00-7.15); RED BLOOD COUNT 4.76 mill/uL (4.20-5.60)
[2022-11-05 06:17] LABS: ALBUMIN 3.8 g/dL (3.2-5.0); ALKALINE PHOSPHATASE 83 u/l (38-126); ANION GAP 11 (6-22 (CALC)); BUN 15 mg/dL (8-23); BUN/CREATININE RATIO 19 (12-20 (CALC)); CARBON DIOXIDE 31 mmol/l (22-30); CHLORIDE 104 mmol/l (95-108); CREATININE 0.8 mg/dL (0.5-1.0); GFR FOR AFR.AMER. > 60 ML/MIN (>=60 (CALC)); GFR OTHER RACES > 60 ML/MIN (>=60 (CALC)); POTASSIUM 3.8 mmol/l (3.5-5.1); SGOT/AST 22 u/l (9-36); SODIUM 143 mmol/l (137-146); TOTAL PROTEIN 6.4 g/dL (6.3-8.2)
[2022-11-05 06:21] LABS: BILIRUBIN, TOTAL 0.1 mg/dL (0.0-1.4)
[2022-11-05 06:28] VITALS: BP 141/74
[2022-11-05 10:23] VITALS: BP 138/79
[2022-11-05] MEDS ORDERED: MEDDOSEPAK PO (11:43)
== END 2022-11-05 17:00 | disposition home or self-care (01) ==
LOC: ED 18:31 → ED-I 19:32 → ED 20:26 → MS2 20:27
PROVIDERS: Family Medicine; ADMIT Internal Medicine; ATTEND Internal Medicine
DX: R07.9 Chest pain, unspecified (principal); R00.1 Bradycardia, unspecified; I10 Essential (primary) hypertension; J43.9 Emphysema, unspecified; J96.10 Chronic respiratory failure, unspecified whether with hypoxia or hypercapnia; I25.10 Atherosclerotic heart disease of native coronary artery without angina pectoris; G89.4 Chronic pain syndrome; F41.9 Anxiety disorder, unspecified; F32.9 Major depressive disorder, single episode, unspecified; I25.2 Old myocardial infarction; F17.210 Nicotine dependence, cigarettes, uncomplicated; Z95.5 Presence of coronary angioplasty implant and graft; Z86.14 Personal history of Methicillin resistant Staphylococcus aureus infection; Z86.16 Personal history of COVID-19; Z99.81 Dependence on supplemental oxygen; Z79.02 Long term (current) use of antithrombotics/antiplatelets; Z79.82 Long term (current) use of aspirin

== ENCOUNTER 2023-02-04 22:19 | Observation (INO) | payer MEDICARE, MEDICAID ==
[~2023-02-04] VITALS: Ht 172.7 cm; Wt 92.4 kg
[2023-02-04] VITALS (7 sets, daily range): BP systolic 168–175; BP diastolic 92–97
[2023-02-04 22:55] LABS: URINE BILIRUBIN - DIPSTICK NEGATIVE (NEGATIVE); URINE BLOOD DIPSTICK SMALL (NEGATIVE); URINE GLUCOSE - DIPSTICK NEGATIVE (NEGATIVE); URINE KETONE NEGATIVE (NEGATIVE); URINE LEUK ESTERASE MODERATE (NEGATIVE); URINE NITRITE - DIPSTICK NEGATIVE (Negative); URINE PH 6.5 (4.5-8.0); URINE PROTEIN - DIPSTICK NEGATIVE (NEG-TRACE); URINE UROBILINOGEN - DIPSTICK 0.2 E.U./dL (0.2)
[2023-02-04 22:56] LABS: URINE COLOR STRAW
[2023-02-04 22:57] LABS: URINE SQUAMOUS EPITHELIAL CELL FEW EPI/hpf (0-FEW)
[2023-02-04 23:16] LABS: BASO% 0.3 % (0-3); HEMATOCRIT 35.5 % (37.0-47.0); HEMOGLOBIN 10.6 g/dl (12.0-16.0); IMMATURE GRANULOCYTES 0.1 % (0.0-5.0); LYMPH% 26.3 % (15-41); MEAN CELL VOLUME 79.1 fL CALC (80.0-100.0); MEAN CORPUSCULAR HGB 23.6 pG CALC (26.0-32.0); MEAN CORPUSCULAR HGB CONC 29.9 g/dL CAL (32.0-36.0); NEUT# 6.01 thou/uL (2.00-7.15); NEUT% 63.3 % (42-76); RED BLOOD COUNT 4.49 mill/uL (4.20-5.60); RED CELL DISTRI WIDTH 15.5 % (11.5-15.5)
[2023-02-04 23:27] LABS: ALBUMIN 3.9 g/dL (3.2-5.0); ALKALINE PHOSPHATASE 80 u/l (38-126); ANION GAP 8 (6-22 (CALC)); BUN 16 mg/dL (8-23); BUN/CREATININE RATIO 16 (12-20 (CALC)); CARBON DIOXIDE 29 mmol/l (22-30); CHLORIDE 107 mmol/l (95-108); GFR FOR AFR.AMER. > 60 ML/MIN (>=60 (CALC)); GFR OTHER RACES 55 ML/MIN (>=60 (CALC)); POTASSIUM 3.4 mmol/l (3.5-5.1); SGOT/AST 25 u/l (9-36); SODIUM 141 mmol/l (137-146); TOTAL PROTEIN 7.2 g/dL (6.3-8.2)
[2023-02-05] VITALS (10 sets, daily range): BP systolic 146–180; BP diastolic 79–102
[2023-02-05] MEDS ORDERED: TRAZODONE50 MG PO (01:14)
[2023-02-05] MEDS ORDERED: MEDDOSEPAK PO (12:38)
[2023-02-05] MEDS ORDERED: ROBITUSSIN AC10 ML PO (12:41)
== END 2023-02-05 14:20 | disposition home or self-care (01) ==
LOC: ED 22:19 → ED-I 02-05 00:22 → ED 02-05 00:22 → MS2 02-05 00:24 → ED-I 02-05 00:25 → ED 02-05 00:25 → MS2 02-05 02:09
PROVIDERS: Emergency Medicine; ADMIT Internal Medicine; ATTEND Internal Medicine
DX: J43.9 Emphysema, unspecified (principal); R07.89 Other chest pain; J96.10 Chronic respiratory failure, unspecified whether with hypoxia or hypercapnia; I10 Essential (primary) hypertension; I25.10 Atherosclerotic heart disease of native coronary artery without angina pectoris; G89.4 Chronic pain syndrome; F41.9 Anxiety disorder, unspecified; F32.9 Major depressive disorder, single episode, unspecified; I25.2 Old myocardial infarction; F17.210 Nicotine dependence, cigarettes, uncomplicated; Z23 Encounter for immunization; Z86.16 Personal history of COVID-19; Z95.5 Presence of coronary angioplasty implant and graft; Z99.81 Dependence on supplemental oxygen
CPT/HCPCS: G0378

== ENCOUNTER 2023-03-04 21:39 | Observation (INO) | payer MEDICARE, MEDICAID ==
[~2023-03-04] VITALS: Ht 172.7 cm; Wt 91.7 kg
[~2023-03-04 21:39] MED LIST changes: +ROBITUSSIN AC10 ML PO; +TRAZODONE50 MG PO
--- NOTE | 2023-03-04 21:44 | NUR ---
PT W/C TO ROOM 10 FOR TRIAGE.
[2023-03-04 22:30] LABS: BASO% 0.3 % (0-3); EOS% 3.9 % (0-8); HEMATOCRIT 35.6 % (37.0-47.0); HEMOGLOBIN 10.7 g/dl (12.0-16.0); IMMATURE GRANULOCYTES 0.1 % (0.0-5.0); LYMPH% 35.2 % (15-41); MEAN CELL VOLUME 80.4 fL CALC (80.0-100.0); MEAN CORPUSCULAR HGB 24.2 pG CALC (26.0-32.0); MEAN CORPUSCULAR HGB CONC 30.1 g/dL CAL (32.0-36.0); MONO% 10.1 % (2-13); NEUT# 3.65 thou/uL (2.00-7.15); NEUT% 50.4 % (42-76); RED BLOOD COUNT 4.43 mill/uL (4.20-5.60); RED CELL DISTRI WIDTH 16.7 % (11.5-15.5)
[2023-03-04 22:40] LABS: ALBUMIN 3.9 g/dL (3.2-5.0); ALKALINE PHOSPHATASE 72 u/l (38-126); ANION GAP 11 (6-22 (CALC)); BUN 15 mg/dL (8-23); BUN/CREATININE RATIO 15 (12-20 (CALC)); CARBON DIOXIDE 32 mmol/l (22-30); CHLORIDE 103 mmol/l (95-108); GFR FOR AFR.AMER. > 60 ML/MIN (>=60 (CALC)); GFR OTHER RACES 55 ML/MIN (>=60 (CALC)); POTASSIUM 3.3 mmol/l (3.5-5.1); SGOT/AST 27 u/l (9-36); SODIUM 142 mmol/l (137-146); TOTAL PROTEIN 6.9 g/dL (6.3-8.2)
[2023-03-04 22:42] LABS: ACT PARTIAL THROMBO TIME 24.3 SECONDS (20.0-32.5); INTERNATIONAL NORMALIZED RATIO 0.9 RATIO (0.7-1.3); PROTHROMBIN TIME 9.4 SECONDS (9.0-12.5)
--- NOTE | 2023-03-04 22:45 | NUR ---
Reassessment of patient completed. No distress noted.
--- NOTE | 2023-03-04 23:46 | NUR ---
REPORT CALLED UP TO NURSE OLI. PT IS BEING TRANSPORTED VIA WHEELCHAIR TO ROOM 262. PT STATED SHE HAS NO CONCERNS AT THIS TIME.
[2023-03-04 23:51] VITALS: BP 182/86
--- NOTE | 2023-03-05 00:47 | NUR ---
PT RECEIVED FROM ER AT 11:50 PM VIA W/C. ALERT AND ORIENTED. ABLE TO TRANSFER SELF TO BED INDEPENDENTLY. C/O CHEST DISCOMFORT. NITRO OINT PATCH PLACED ON CHEST IN er AT 2300. PT IS OREINTED TO ROOM AND CALL LIGHT. PT INFORMED ON FALL SAFETY AND ANSWERED QUESTIONS. NO FURTHER QUESTIONS OR CONCERNS AT THIS TIME.
[2023-03-05 04:13] VITALS: BP 184/93
[2023-03-05 07:04] VITALS: BP 139/68
--- NOTE | 2023-03-05 07:24 | NUR ---
Bedside report received from off going nurse. Head to toe assessment completed. No concerns voiced at this time. Call light within reach.
[2023-03-05 08:11] VITALS: BP 139/68
--- NOTE | 2023-03-05 10:03 | NUR ---
Nitro paste removed from patient chest per MD verbal order. Pt is drowsy at this time but easily aroused. Labs upcoming and possible discharge pending lab results. Call light within reach.
--- NOTE | 2023-03-05 11:15 | NUR ---
Patient resting in bed quietly. Denies pain or discomfort at this time. Call light in bed with patient and within reach.
--- NOTE | 2023-03-05 13:43 | NUR ---
Discharge instructions given to patient and patient verbalizes understanding. Patient left floor walking independently with her personal belongings. IV access removed and telemetry returned.
== END 2023-03-05 13:40 | disposition home or self-care (01) ==
LOC: ED 21:39 → ED-I 22:19 → ED 22:19 → ED-I 22:50 → ED 23:05 → MS2 23:08
PROVIDERS: Family Medicine; ADMIT Internal Medicine; ATTEND Internal Medicine
DX: R07.9 Chest pain, unspecified (principal); J43.9 Emphysema, unspecified; I25.10 Atherosclerotic heart disease of native coronary artery without angina pectoris; I10 Essential (primary) hypertension; F41.9 Anxiety disorder, unspecified; D64.9 Anemia, unspecified; F31.9 Bipolar disorder, unspecified; G89.4 Chronic pain syndrome; I25.2 Old myocardial infarction; F17.210 Nicotine dependence, cigarettes, uncomplicated; Z95.5 Presence of coronary angioplasty implant and graft; Z86.16 Personal history of COVID-19; Z79.891 Long term (current) use of opiate analgesic